=== PATIENT | female | born 1950 | race Caucasian/White ===

== ENCOUNTER 2018-09-08 16:55 | Inpatient (IN) ==
[2018-09-08] MEDS ORDERED: Ipratropium/Albuterol Neb 3 ML IH ONE (17:21)
[2018-09-08] MEDS ORDERED: Ondansetron 4 MG/2 ML VIAL IVP ONE (17:27)
[2018-09-08] MEDS ORDERED: 0.9 % Sodium Chloride 1,000 ML IVC ONE (17:27)
[2018-09-08 17:34] LABS: Basophils % 0.4 %; Hematocrit 32.9 % (35.3-44.9); Red Cell Distribution Width 16.8 % (11.5-14.5)
[2018-09-08 17:36] LABS: Hemoglobin 10.1 g/dL (11.5-15.4); Immature Granulocytes % 0.6 % (0-4); Immature Platelets 8.3 % (1.1-6.1); Lymphocytes # 0.6 K/mcL (0.6-4.6); Lymphocytes % 10.4 %; Mean Corpuscular HGB Conc 30.7 g/dL (31.6-35.5); Mean Corpuscular Hemoglobin 21.1 pg (28.0-33.3); Mean Corpuscular Volume 68.8 fL (83.0-100.0); Monocytes # 0.6 K/mcL (0.0-1.3); Monocytes % 10.7 %; Neutrophils # 4.1 K/mcL (1.6-8.9); Platelet Count 158 K/mcL (140-400); Red Blood Count 4.78 M/mcL (3.82-4.97); Segmented Neutrophils % 77.9 %; White Blood Count 5.3 K/mcL (4.3-11.1)
[2018-09-08] MEDS ORDERED: cefTRIAXone 1,000 MG in 0.9 % Sodium Chloride Mini Bag 100 ML IVPB ONE (17:46)
[2018-09-08] MEDS ORDERED: Azithromycin 250 MG TABLET PO ONE (17:46)
[2018-09-08 17:54] LABS: Large Platelets Present (Not Present); Microcytosis Present (Not Present); Platelet Estimate Normal (Normal)
[2018-09-08 18:01] LABS: Alanine Aminotransferase 9 Units/L (7-52); Albumin/Globulin Ratio 1.4 (1.1-2.2); Alkaline Phosphatase 70 Units/L (34-104); Aspartate Amino Transferase 18 Units/L (13-39); BUN/Creatinine Ratio 20 (6-26); Bilirubin,Direct 0.1 mg/dL (0.0-0.2); Bilirubin,Indirect 0.3 mg/dL (0.0-1.2); Bilirubin,Total 0.4 mg/dL (0.3-1.0); Blood Urea Nitrogen 13 mg/dL (8-23); Calcium 9.3 mg/dL (8.6-10.3); Carbon Dioxide 27 mEq/L (23-29); Chloride 96 mEq/L (98-107); Globulin 2.8 g/dL (2.4-3.5); Glucose 143 mg/dL (70-105); Lipase 6 Units/L (11-82); Osmolality,Calculated 279 (280-300); Potassium 3.1 mEq/L (3.5-5.1); Sodium 133 mEq/L (136-145); Total Protein 6.8 g/dL (6.4-8.9); eGFR For African Americans > 60 (> 60); eGFR For Non-African Americans > 60 (> 60)
--- NOTE | 2018-09-08 21:03 | Emergency Department Note ---
Disposition Clinical Impression: CAP (community acquired pneumonia) Qualifiers: Laterality: right Lung location: lower lobe of lung Qualified Code(s): J18.1 - Lobar pneumonia, unspecified organism Disposition: Admitted As Inpatient Condition: Good Referrals: Sayda Villagran MD [Primary Care Provider] - Time of Disposition: 20:05 General Adult HPI - General Chief complaint: ED Nausea/Vomiting/Diarrhea Stated complaint: nausea, vomitting Time Seen by Provider: 09/08/18 17:00 Source: patient, EMS Mode of arrival: ambulatory Nursing Notes Reviewed: Yes Vital Signs Reviewed: Yes - History of Present Illness HPI Narrative: 68-year-old female presents for chief complaint of fever, body aches, nausea and vomiting, cough, malaise and fatigue over the last couple days. Symptoms have been constant and progressive. Her emesis is nonbloody and nonbilious. She denies any syncope, confusion, neck stiffness, chest pain, abdominal pain, urinary symptoms, rashes or edema. No remitting or exacerbating factors. has been sick with cough and cold symptoms. Pain Scale: 8 - Related Data Home Medications Medication Instructions Recorded Confirmed Aspirin [Ecotrin] 325 mg PO DAILY 09/08/18 09/08/18 Budesonide/Formoterol 160/4.5 2 puff IH BIDR 09/08/18 09/08/18 [Symbicort 160/4.5] Ergocalciferol (VITAMIN D2) 50,000 unit PO TUSA 09/08/18 09/08/18 [Vitamin D2] [place] Carbonate ER [Eskalith] 450 mg PO 09/08/18 09/08/18 Omeprazole [PriLOSEC] 40 mg PO DAILY 09/08/18 09/08/18 Paroxetine [Paxil] 20 mg PO DAILY 09/08/18 09/08/18 Simvastatin [Zocor] 10 mg PO 09/08/18 09/08/18 Tiotropium [place] [Spiriva 2 puff IH DAILY 09/08/18 09/08/18 Respimat] Verapamil [Isoptin] 40 mg PO TID 09/08/18 09/08/18 clonazePAM [Clonazepam] 0.25 mg PO QA 09/08/18 09/08/18 clonazePAM [Clonazepam] 0.5 mg PO 09/08/18 09/08/18 hydroCHLOROthiazide 25 mg PO DAILY 09/08/18 09/08/18 [Hydrochlorothiazide] traZODone [TraZODone] 25 mg PO HS 09/08/18 09/08/18 Allergies Allergy/AdvReac Type Severity Reaction Status Date / Time acetaminophen Allergy Nausea Verified 08/14/17 11:05 [From Darvocet-N] Erythromycin Base Allergy Nausea Verified 08/14/17 11:05 propoxyphene Allergy Nausea Verified 08/14/17 11:05 [From Darvocet-N] Constitutional: Reports: fever, chills Eyes: Denies: eye pain, eye discharge Cardiovascular: Denies: chest pain, palpitations Respiratory: Reports: cough. Denies: dyspnea Gastrointestinal: Reports: nausea, vomiting. Denies: abdominal pain Genitourinary: Denies: urgency, dysuria Musculoskeletal: Reports: arthralgia, myalgia Integumentary: Denies: rash, abrasion Neurological: Reports: weakness. Denies: headache Psychiatric: Denies: anxiety, depression Endocrine: Reports: fatigue. Denies: heat or cold intolerance Hematological/Lymphatic: Denies: easy bleeding, easy bruising Allergic/Immunologic: Denies: facial swelling, urticaria Past Medical History - Past Medical History Attestation: Yes The following information was validated with the patient. Source: patient Medical history: Reports: arthritis, COPD, CVA, hyperlipidemia, hypertension Surgical history: Reports: appendectomy, , orthopedic, other Psychiatric history: Reports: anxiety, bipolar, depression, panic disorder - Social History Smoking Status: Current every day smoker Alcohol use: Reports: none Physical Exam - General General appearance: alert, in no apparent distress - Head Head exam: atraumatic, normocephalic - Eye Eye exam: Present: normal appearance, PERRL - ENT ENT exam: normal exam, normal oropharynx - Neck Neck exam: Present: normal inspection, full ROM - Chest Chest inspection: Present: normal inspection, symmetric chest wall rise - Respiratory Respiratory exam: Present: other (Scattered wheezes and rhonchi.). Absent: respiratory distress - Cardiovascular Cardiovascular exam: Present: regular rate, normal rhythm - Abdominal Exam Abdominal exam: Present: soft, Non-Tender - Extremities Exam Extremities exam: Present: normal inspection, full ROM - Back Exam Back exam: Present: normal inspection, full ROM - Neurological Exam Neurological exam: Present: alert, oriented X3 - Psychiatric Psychiatric exam: Present: normal affect, normal mood - Skin Skin exam: Present: warm, dry, intact Course Course Narrative: I gave patient a breathing treatment here with some improvement in her breathing. She was initially saturating at about 88-90% on room air and was placed on nasal cannula oxygen at 2 L with improvement of symptoms. Chest x-ray shows right lower lobe pneumonia. Patient is febrile at 100.6 on arrival, but not hypotensive or tachycardic. Patient was given Rocephin and azithromycin here. She is also given Tylenol and is feeling better on reassessment. Patient was hospitalized for further evaluation and management. EKG interpreted by me shows normal sinus rhythm at 71 with a little axis and intervals. No ST elevation or depression. Nonspecific mild T-wave changes diffusely with associated motion artifact. Abnormal EKG. Vital Signs Temperature 100.6 F H 09/08/18 16:59 Pulse Rate 72 09/08/18 16:59 Respiratory Rate 18 09/08/18 16:59 Blood Pressure 127/75 09/08/18 16:59 O2 Sat by Pulse Oximetry 93 09/08/18 16:59 Temperature 100.6 F H 09/08/18 17:04 Pulse Rate 77 09/08/18 19:00 Respiratory Rate 18 09/08/18 19:00 Blood Pressure 130/75 09/08/18 19:00 O2 Sat by Pulse Oximetry 96 09/08/18 19:00 Oxygen Delivery Oxygen Delivery Nasal Cannula Medical Decision Making - Lab Data Result diagrams: 09/08/18 17:08 09/08/18 17:08 Lab Results 09/08/18 09/08/18 09/08/18 Range/Units 17:08 17:08 17:08 WBC 5.3 (4.3-11.1) K/mcL RBC 4.78 (3.82-4.97) M/mcL Hgb 10.1 L (11.5-15.4) g/dL Hct 32.9 L (35.3-44.9) % MCV 68.8 L (83.0-100.0) fL MCH 21.1 L (28.0-33.3) pg MCHC 30.7 L (31.6-35.5) g/dL RDW 16.8 H (11.5-14.5) % Plt Count 158 (140-400) K/mcL MPV 12.0 (9.4-12.4) fL Immature Gran % 0.6 (0-4) % Seg Neutrophils % 77.9 % Lymphocytes % 10.4 % Monocytes % 10.7 % Eosinophils % 0.0 % Basophils % 0.4 % Neutrophils # 4.1 (1.6-8.9) K/mcL Lymphocytes # 0.6 (0.6-4.6) K/mcL Monocytes # 0.6 (0.0-1.3) K/mcL Eosinophils # 0.0 (0.0-0.6) K/mcL Basophils # 0.0 (0.0-0.2) K/mcL Platelet Estimate Normal (Normal) Large Platelets Present A (Not Present) Immature Plt Fraction 8.3 H (1.1-6.1) % Microcytosis Present A (Not Present) Sodium 133 L (136-145) mEq/L Potassium 3.1 L (3.5-5.1) mEq/L Chloride 96 L (98-107) mEq/L Carbon Dioxide 27 (23-29) mEq/L BUN 13 (8-23) mg/dL Creatinine 0.65 (0.60-1.20) mg/dL Est GFR ( Amer) > 60 (> 60) Est GFR (Non-Af Amer) > 60 (> 60) BUN/Creatinine Ratio 20 (6-26) Glucose 143 H (70-105) mg/dL Calculated Osmolality 279 L (280-300) Lactic Acid 0.8 (0.5-2.2) mmol/L Calcium 9.3 (8.6-10.3) mg/dL Total Bilirubin 0.4 (0.3-1.0) mg/dL Direct Bilirubin 0.1 (0.0-0.2) mg/dL Indirect Bilirubin 0.3 (0.0-1.2) mg/dL AST 18 (13-39) Units/L ALT 9 (7-52) Units/L Alkaline Phosphatase 70 (34-104) Units/L Serum Total Protein 6.8 (6.4-8.9) g/dL Albumin 4.0 (3.5-5.7) g/dL Globulin 2.8 (2.4-3.5) g/dL Albumin/Globulin Ratio 1.4 (1.1-2.2) Lipase 6 L (11-82) Units/L
[2018-09-08 21:21] LABS: Bilirubin,Urine Negative (Negative); Blood,Urine Negative (Negative); Clarity,Urine Clear (Clear); Color,Urine Yellow (Yellow); Glucose,Urine (UA) Normal (Normal); Ketones,Urine Negative (Negative); Leukocyte Esterase,Urine Negative (Negative); Nitrite,Urine Negative (Negative); PH,Urine 6.5 pH Units (5.0-8.0); Protein,Urine Negative (Neg-Trace); Specific Gravity,Urine < 1.005 (1.010-1.025); Urobilinogen,Urine Normal (Normal)
[2018-09-08] MEDS ORDERED: Albuterol 2.5 MG/3 ML NEBULIZER IH PRN (22:03)
[2018-09-08] MEDS ORDERED: Naloxone 0.4 MG/ML INJ IVP PRN (22:03)
[2018-09-08] MEDS ORDERED: Ondansetron 4 MG/2 ML VIAL IVP PRN (22:03)
[2018-09-08] MEDS ORDERED: Azithromycin 500 MG in D5% in Water 250 ML IVPB SCH (23:00)
--- NOTE | 2018-09-08 23:47 | Internal Med History&Physical ---
Date of Encounter: 09/08/18 Time of Encounter: 20:46 Internal Medicine - H&P: HPI Chief complaint: fever, cough, body aches Admitted From: Emergency Dept Plans for Post Hospital Care: Home History of present illness: Ms. Grullon is a 68 year old female who presents to the ER today with about a 5- 6 day history of fever, cough, body aches, nausea, vomiting, and fatigue. Her family brought her to the ER given her persistent and worsening symptoms. Workup in ER revealed patient to have right lower lobe pneumonia and a mild oxygen requirement. She was therefore admitted to hospitalist service. Upon my assessment of the patient in the ER, patient appears ill but nontoxic. She appears dehydrated. She confirms the above history. She has had symptoms for the last 5-6 days which have progressively worsened. Sh admits to subjective fevers, chills, and occasional night sweats. She has had cough productive of thick purulent sputum. She denies any hemoptysis. She is a long- time smoker and suffers from COPD. She denies any chest pain or severe pleurisy. Appetite and fluid intake have been markedly decreased over the last 2-3 days. Past Med Surg Social Fam HX - Past Medical History Attestation: Yes The following information was validated with the patient. Source: patient, old records reviewed Medical history: arthritis, COPD, CVA, hyperlipidemia, hypertension Psychiatric history: anxiety, bipolar, depression, panic disorder - Past Surgical History Surgical History: appendectomy, , orthopedic, other Additional surgical history: cyst on ovary. right foot bunion - Social History Smoking Status: Current every day smoker Alcohol use: none Current living situation: Home, With Family Activity Level: Independent ambulation Recent Out of Country Travel Within the Last 8 Weeks: No - Family History Mother History Unknown: Yes Father History Unknown: Yes Internal Medicine - H&P: Meds Aspirin [Ecotrin] 325 mg PO DAILY 09/08/18 [History] Budesonide/Formoterol 160/4.5 [Symbicort 160/4.5] 2 puff IH BIDR 09/08/18 [History] Ergocalciferol (VITAMIN D2) [Vitamin D2] 50,000 unit PO TUSA 09/08/18 [History] [place] Carbonate ER [Eskalith] 450 mg PO HS 09/08/18 [History] Omeprazole [PriLOSEC] 40 mg PO DAILY 09/08/18 [History] Paroxetine [Paxil] 20 mg PO DAILY 09/08/18 [History] Simvastatin [Zocor] 10 mg PO HS 09/08/18 [History] Tiotropium [place] [Spiriva Respimat] 2 puff IH DAILY 09/08/18 [History] Verapamil [Isoptin] 40 mg PO TID 09/08/18 [History] clonazePAM [Clonazepam] 0.25 mg PO QAM 09/08/18 [History] clonazePAM [Clonazepam] 0.5 mg PO HS 09/08/18 [History] hydroCHLOROthiazide [Hydrochlorothiazide] 25 mg PO DAILY 09/08/18 [History] traZODone [TraZODone] 25 mg PO HS 09/08/18 [History] Allergy/AdvReac Type Severity Reaction Status Date / Time acetaminophen Allergy Nausea Verified 08/14/17 11:05 [From Darvocet-N] Erythromycin Base Allergy Nausea Verified 08/14/17 11:05 propoxyphene Allergy Nausea Verified 08/14/17 11:05 [From Darvocet-N] - Constitutional Constitutional: chills, fatigue, fever(s), weakness - EENT Eyes: no blurry vision, no change in vision Ears: no ear pain, no tinnitus Nose, mouth and throat: nasal congestion, no sinus pressure, no sore throat - Cardiovascular Cardiovascular ROS IM: dyspnea, dyspnea on exertion, no chest pain, no lightheadedness, no orthopnea, no paroxysmal nocturnal dyspnea, no syncope - Respiratory Respiratory: cough, dyspnea, dyspnea on exertion, wheezing, chest congestion, change in phlegm color, no hemoptysis, no pain on inspiration, no pain with cough - Gastrointestinal Gastrointestinal: nausea, no abdominal pain, no diarrhea, no hematemesis, no hematochezia, no melena, no vomiting - Genitourinary Genitourinary: no dysuria, no flank pain, no hematuria - Musculoskeletal Musculoskeletal ROS IM: no arthralgias, no back pain, no limited range of motion, no muscle weakness, no numbness - Integumentary Integumentary IM: no rash, no jaundice - Neurological Neurological ROS: no disequilibrium, no dizziness, no focal weakness, no frequent falls, no headache(s) - Psychiatric Psychiatric: no anxiety, no depression - Endocrine Endocrine IM: no polydipsia, no polyphagia, no polyuria - Hematologic/Lymphatic Hematologic/Lymphatic: no easy bruising, no lymphadenopathy - Allergic/Immunologic Allergic/Immunologic: wheezing, no GI upset with certain foods - Constitutional Vitals: Temp Pulse Resp BP Pulse Ox 99.5 F 69 17 109/73 95 09/08/18 21:56 09/08/18 21:56 09/08/18 21:56 09/08/18 21:56 09/08/18 21:56 General appearance: Present: cooperative, mild distress, A&O X 3, pleasant, answers questions appropriately Exam: appears mild to moderately dehydrated - Head Head exam: Present: atraumatic, normal inspection - Eye Eye exam: Present: EOMI, PERRL. Absent: scleral icterus Pupils: Present: normal accommodation - ENT ENT exam: Present: mucous membranes dry, normal exam, normal oropharynx - Neck Neck exam general surgery: Present: full ROM, supple, trachea midline. Absent: lymphadenopathy, tenderness, nuchal rigidity, thyromegaly - Respiratory Respiratory exam: Present: prolonged expiratory phase, rales (crackles right base). Absent: accessory muscle use, chest wall tenderness, respiratory distr ess, rhonchi, wheezes, tachypnea - Cardiovascular Cardiovascular exam: Present: distant heart sounds, +S1, +S2. Absent: diastolic murmur, systolic murmur - GI/Abdominal GI/Abdominal exam: Present: normal bowel sounds, soft. Absent: guarding, hepatomegaly, mass, rebound, splenomegaly, tenderness - Extremities Exam Extremities exam: Present: full ROM, normal capillary refill, warm, radial pulses palpable and symmetrical. Absent: calf tenderness, pedal edema, tenderness - Back Exam Back exam: Present: normal inspection. Absent: CVA tenderness (L), CVA tenderness (R) - Neurological Exam Neurological exam: Present: alert, CN II-XII intact, normal gait, no focal deficits - Psychiatric Psychiatric exam: Present: normal affect, normal mood - Skin Skin exam: Present: dry, intact, warm Internal Med - H&P Results - Labs CBC & Chem 7: 09/08/18 17:08 09/08/18 17:08 Labs: Short CBC 09/08/18 Range/Units 17:08 WBC 5.3 (4.3-11.1) K/mcL Hgb 10.1 L (11.5-15.4) g/dL Hct 32.9 L (35.3-44.9) % Plt Count 158 (140-400) K/mcL Neutrophils # 4.1 (1.6-8.9) K/mcL BMP 09/08/18 17:08 Sodium 133 L Potassium 3.1 L Chloride 96 L Carbon Dioxide 27 BUN 13 Creatinine 0.65 Glucose 143 H Calcium 9.3 Liver Function 09/08/18 Range/Units 17:08 Total Bilirubin 0.4 (0.3-1.0) mg/dL Direct Bilirubin 0.1 (0.0-0.2) mg/dL AST 18 (13-39) Units/L ALT 9 (7-52) Units/L Alkaline Phosphatase 70 (34-104) Units/L Albumin 4.0 (3.5-5.7) g/dL Urine 09/08/18 Range/Units 21:01 Urine Color Yellow (Yellow) Urine Clarity Clear (Clear) Urine pH 6.5 (5.0-8.0) pH Units Ur Specific [place] < 1.005 L (1.010-1.025) Urine Protein Negative (Neg-Trace) mg/dL Urine Glucose (UA) Normal (Normal) mg/dL - Impressions ITS Impressions Chest X-Ray 09/08/18 17:11 IMPRESSION: Acute right lower lobe pneumonia. Radiographic follow-up recommended to assure resolution. D/ / 09/08/2018 17:31:40 Erick Bosch MD / [place] Interpreting Provider: Erick Bosch MD - Assessment and Plan (1) RLL pneumonia Current Visit: Yes Status: Acute Assessment and plan: 1. Will continue IV antibiotics with Rocephin and Zithromax. 2. Will order oxygen and aerosols as needed for support. 3. Monitor clinically and adjust antibiotics/treatments to clinical response to care. Qualifiers: Pneumonia type: due to unspecified organism Qualified Code(s): J18.1 - Lobar pneumonia, unspecified organism (2) COPD (chronic obstructive pulmonary disease) Current Visit: Yes Status: Chronic Assessment and plan: 1. Will order scheduled and PRN aerosols. 2. Will order some systemic steroids given the degree of SOB and wheezing. 3. Patient noted improvement in dyspnea after aerosol. Qualifiers: COPD type: emphysema Emphysema type: panlobular Qualified Code(s): J43.1 - Panlobular emphysema (3) Hypertension Current Visit: Yes Status: Chronic Assessment and plan: 1. Continue home meds as appropriate. 2. Monitor BP and adjust meds as necessary. Qualifiers: Hypertension type: essential hypertension Qualified Code(s): I10 - Essential (primary) hypertension (4) DVT prophylaxis Current Visit: Yes Status: Acute Assessment and plan: 1. Heparin SQ.
[2018-09-09] MEDS: methylPREDNISolone 125 MG/2 ML VIAL IVP SCH ×2 (00:02→05:29)
[2018-09-09] MEDS: Lithium Carbonate ER 450 MG TABLET.ER PO SCH ×2 (00:03→20:43)
[2018-09-09] MEDS: clonazePAM 0.5 MG TABLET PO SCH ×3 (00:04→20:43)
[2018-09-09] MEDS: 0.9 % Sodium Chloride w KCl 20 MEQ/1,000 ML MLS IVC SCH ×2 (00:04→09:10)
[2018-09-09] MEDS: Ipratropium/Albuterol Neb 3 ML IH SCH ×6 (00:32→19:54)
[2018-09-09 02:47] LABS: Basophils % 0.2 %; Immature Granulocytes % 0.2 % (0-4); Mean Corpuscular Volume 69.4 fL (83.0-100.0)
[2018-09-09 02:49] LABS: Hemoglobin 9.1 g/dL (11.5-15.4); Immature Platelets 8.7 % (1.1-6.1); Lymphocytes # 0.4 K/mcL (0.6-4.6); Lymphocytes % 10.3 %; Mean Corpuscular HGB Conc 30.3 g/dL (31.6-35.5); Mean Corpuscular Hemoglobin 21.1 pg (28.0-33.3); Monocytes # 0.3 K/mcL (0.0-1.3); Monocytes % 5.8 %; Neutrophils # 3.6 K/mcL (1.6-8.9); Platelet Count 131 K/mcL (140-400); Red Blood Count 4.32 M/mcL (3.82-4.97); Red Cell Distribution Width 16.9 % (11.5-14.5); Segmented Neutrophils % 83.5 %; White Blood Count 4.3 K/mcL (4.3-11.1)
[2018-09-09 02:56] LABS: INR 1.2; Prothrombin Time 13.7 Seconds (9.4-12.1)
[2018-09-09 02:59] LABS: Activated Partial Thrombo Time 34.1 Seconds (26.0-36.0)
[2018-09-09 03:27] LABS: Microcytosis Present (Not Present); Platelet Estimate Normal (Normal); Poikilocytosis 1+ (Not Present)
[2018-09-09 03:28] LABS: Large Platelets Present (Not Present)
[2018-09-09] MEDS: Ibuprofen 400 MG TABLET PO PRN (03:47)
[2018-09-09] MEDS: *HR* Heparin 5,000 UNIT/ML VIAL SQ SCH ×2 (05:29→17:01)
[2018-09-09] MEDS: Budesonide/Formoterol 160/4.5 1 PUFF INH IH SCH ×2 (07:37→19:54)
[2018-09-09] MEDS: Aspirin Enteric Coated 325 MG Tablet PO SCH (09:11)
[2018-09-09] MEDS: Azithromycin 500 MG in D5% in Water 250 ML IVPB SCH (09:13)
[2018-09-09] MEDS: cefTRIAXone 1,000 MG in Water for inj. (sterile) 20 ML 10 ML IVP SCH (09:14)
--- NOTE | 2018-09-09 09:29 | Electrocardiograph Report ---
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
--- NOTE | 2018-09-09 13:58 | Internal Med Progress Note ---
Hospitalist Progress Note - Encounter Date of Encounter: 09/09/18 Time of Encounter: 13:55 - Subjective Interval History: Patient seen and examined at bedside. Patient states that she feels better today. She feels like her cough and shortness of breath is improved. She denies any fevers or chills. - Exam Vitals: Temp Pulse Resp BP Pulse Ox 97.9 F 57 17 104/67 91 09/09/18 10:48 09/09/18 10:48 09/09/18 11:23 09/09/18 10:48 09/09/18 11:23 Exam: Gen.: Oriented 3, no acute distress Lungs: Diminished bilaterally, no rales, rhonchi, wheezes Heart: Regular rate and rhythm, no murmurs, rubs, gallops - Assessment and Plan (1) Acute respiratory failure with hypoxia Current Visit: Yes Status: Acute Assessment and Plan: Secondary to pneumonia and COPD exacerbation. Patient continues to require 2-3 L of oxygen to maintain a saturation greater than 88%. Is not on home oxygen at home. Continue to wean down oxygen to maintain saturation greater than 88%. (2) RLL pneumonia Current Visit: Yes Status: Acute Assessment and Plan: Overall patient appears clinically improved. Continue treatment for community acquired pneumonia with Rocephin and Zithromax. (3) COPD (chronic obstructive pulmonary disease) Current Visit: Yes Status: Chronic Assessment and Plan: History of COPD with increasing shortness of breath and sputum production. Secondary pneumonia as above. Decrease IV steroids to Solu-Medrol 40 mg every 12, likely transition to by mouth tomorrow. Continue scheduled bronchodilators (4) Hypertension Current Visit: Yes Status: Chronic Assessment and Plan: Blood pressure under good control. Continue home medications. (5) DVT prophylaxis Current Visit: Yes Status: Acute Assessment and Plan: Heparin 5000 units subcutaneous every 12 hours. - Time Spent with Patient Total time spent is greater than 50% in coordination of care (as documented) at patient's floor/unit and/or counseling patient: Internal Medicine: Result - Labs CBC & Chem 7: 09/09/18 01:49 09/08/18 17:08 Labs: Short CBC 09/08/18 09/09/18 Range/Units 17:08 01:49 WBC 5.3 4.3 (4.3-11.1) K/mcL Hgb 10.1 L 9.1 L (11.5-15.4) g/dL Hct 32.9 L 30.0 L (35.3-44.9) % Plt Count 158 131 L (140-400) K/mcL Neutrophils # 4.1 3.6 (1.6-8.9) K/mcL BMP 09/08/18 17:08 Sodium 133 L Potassium 3.1 L Chloride 96 L Carbon Dioxide 27 BUN 13 Creatinine 0.65 Glucose 143 H Calcium 9.3 Cardiac Enzymes 09/09/18 Range/Units 01:49 Troponin I < 0.03 (< 0.04) ng/mL Liver Function 09/08/18 Range/Units 17:08 Total Bilirubin 0.4 (0.3-1.0) mg/dL Direct Bilirubin 0.1 (0.0-0.2) mg/dL AST 18 (13-39) Units/L ALT 9 (7-52) Units/L Alkaline Phosphatase 70 (34-104) Units/L Albumin 4.0 (3.5-5.7) g/dL Urine 09/08/18 Range/Units 21:01 Urine Color Yellow (Yellow) Urine Clarity Clear (Clear) Urine pH 6.5 (5.0-8.0) pH Units Ur Specific [place] < 1.005 L (1.010-1.025) Urine Protein Negative (Neg-Trace) mg/dL Urine Glucose (UA) Normal (Normal) mg/dL - ABG Interpretation ABG results: PT/INR, D-dimer PT 13.7 Seconds (9.4-12.1) H 09/09/18 01:49 - Impressions Impressions Chest X-Ray 09/08/18 17:11 IMPRESSION: Acute right lower lobe pneumonia. Radiographic follow-up recommended to assure resolution. D/ / 09/08/2018 17:31:40 Erick Bosch MD / [place] Interpreting Provider: Erick Bosch MD Consult Discharge Plan - Plan Referrals: Sayda Villagran MD [Primary Care Provider] - (2) RLL pneumonia Qualifiers: Pneumonia type: due to unspecified organism Qualified Code(s): J18.1 - Lobar pneumonia, unspecified organism (3) COPD (chronic obstructive pulmonary disease) Qualifiers: COPD type: COPD with acute exacerbation Qualified Code(s): J44.1 - Chronic obstructive pulmonary disease with (acute) exacerbation (4) Hypertension Qualifiers: Hypertension type: essential hypertension Qualified Code(s): I10 - Essential (primary) hypertension
[2018-09-09] MEDS: MethylPREDNISolone 40 MG/ML VIAL IVP SCH (17:01)
[2018-09-09] MEDS ORDERED: MethylPREDNISolone 40 MG/ML VIAL IVP SCH (18:00)
[2018-09-09] MEDS: traZODone 50 MG TABLET PO SCH (20:42)
[2018-09-10] MEDS: Ipratropium/Albuterol Neb 3 ML IH SCH ×6 (00:02→19:27)
[2018-09-10 05:53] LABS: Hemoglobin 9.2 g/dL (11.5-15.4); Mean Corpuscular Volume 69.1 fL (83.0-100.0)
[2018-09-10 05:55] LABS: Hematocrit 29.9 % (35.3-44.9); Lymphocytes # 0.6 K/mcL (0.6-4.6); Mean Corpuscular HGB Conc 30.8 g/dL (31.6-35.5); Mean Corpuscular Hemoglobin 21.2 pg (28.0-33.3); Monocytes # 0.6 K/mcL (0.0-1.3); Nucleated Red Blood Cells 0.4 /100 WBC (0); Platelet Count 100 K/mcL (140-400); Red Blood Count 4.33 M/mcL (3.82-4.97); Red Cell Distribution Width 17.2 % (11.5-14.5)
[2018-09-10] MEDS: Ibuprofen 400 MG TABLET PO PRN ×2 (05:55→11:59)
[2018-09-10] MEDS: *HR* Heparin 5,000 UNIT/ML VIAL SQ SCH ×2 (05:57→15:51)
[2018-09-10] MEDS: MethylPREDNISolone 40 MG/ML VIAL IVP SCH (05:57)
[2018-09-10] MEDS: Budesonide/Formoterol 160/4.5 1 PUFF INH IH SCH ×2 (07:32→19:27)
[2018-09-10 08:35] LABS: Microcytosis Present (Not Present); Platelet Estimate Slight Decrease (Normal)
[2018-09-10 08:36] LABS: Anisocytosis 1+ (Not Present); Poikilocytosis 1+ (Not Present)
[2018-09-10 08:38] LABS: Neutrophils # 6.2 K/mcL (1.6-8.9)
[2018-09-10 09:52] LABS: Alanine Aminotransferase 9 Units/L (7-52); Albumin 3.5 g/dL (3.5-5.7); Albumin/Globulin Ratio 1.3 (1.1-2.2); Alkaline Phosphatase 55 Units/L (34-104); Aspartate Amino Transferase 16 Units/L (13-39); BUN/Creatinine Ratio 22 (6-26); Bilirubin,Total 0.2 mg/dL (0.3-1.0); Blood Urea Nitrogen 14 mg/dL (8-23); Carbon Dioxide 22 mEq/L (23-29); Chloride 106 mEq/L (98-107); Globulin 2.6 g/dL (2.4-3.5); Glucose 199 mg/dL (70-105); Magnesium 1.8 mg/dL (1.6-2.6); Osmolality,Calculated 292 (280-300); Sodium 138 mEq/L (136-145); Total Protein 6.1 g/dL (6.4-8.9); eGFR For African Americans > 60 (> 60); eGFR For Non-African Americans > 60 (> 60)
[2018-09-10 11:03] LABS: Adenovirus DETECTED (Not Detect); Bordetella Pertussis Not Detected (Not Detect); Chlamydophila pneumoniae Not Detected (Not Detect); Coronavirus 229E Not Detected (Not Detect); Coronavirus HKU1 Not Detected (Not Detect); Coronavirus NL63 Not Detected (Not Detect); Coronavirus OC43 Not Detected (Not Detect); Human Metapneumovirus Not Detected (Not Detect); Human Rhinovirus/Enterovirus Not Detected (Not Detect); Influenza A Subtype 2009 H1 Not Detected (Not Detect); Influenza A Untypeable Not Detected (Not Detect); Influenza B Not Detected (Not Detect); Mycoplasma pneumoniae Not Detected (Not Detect); Parainfluenza Virus 1 Not Detected (Not Detect); Parainfluenza Virus 2 Not Detected (Not Detect); Parainfluenza Virus 3 Not Detected (Not Detect); Parainfluenza Virus 4 Not Detected (Not Detect); Respiratory Syncytial Virus Not Detected (Not Detect)
[2018-09-10] MEDS: Aspirin Enteric Coated 325 MG Tablet PO SCH (11:20)
[2018-09-10] MEDS: predniSONE 20 MG TABLET PO SCH (11:21)
[2018-09-10] MEDS: clonazePAM 0.5 MG TABLET PO SCH (11:22)
[2018-09-10] MEDS: cefTRIAXone 1,000 MG in Water for inj. (sterile) 20 ML 10 ML IVP SCH (11:22)
[2018-09-10] MEDS: Azithromycin 500 MG in D5% in Water 250 ML IVPB SCH (11:24)
--- NOTE | 2018-09-10 12:04 | Internal Med Progress Note ---
Hospitalist Progress Note - Encounter Date of Encounter: 09/10/18 Time of Encounter: 12:02 - Subjective Interval History: Patient seen and examined at bedside. Patient states that she feels about the same today. She does report intermittent fevers. She reports continued shortness of breath. She states she feels generally weak. Denies chest pain, abdominal pain. - Exam Vitals: Temp Pulse Resp BP Pulse Ox 99.7 F H 78 18 102/63 84 09/10/18 08:00 09/10/18 08:00 09/10/18 11:36 09/10/18 08:00 09/10/18 11:36 Exam: Gen.: Alert and oriented 3, no acute distress Lungs: Diminished bilaterally, no rales, rhonchi, wheezes Heart: Regular rate and rhythm, no murmurs, rubs, gallops Abdomen: Soft, nontender, nondistended. Normoactive bowel sounds Extremities: warm to touch, no peripheral edema present. no cyanosis present. - Assessment and Plan (1) Acute respiratory failure with hypoxia Current Visit: Yes Status: Acute Assessment and Plan: Patient continues to require increasing oxygen. She is now on 4 L. She does not use any oxygen. Secondary to pneumonia. Continue supplemental oxygen, patient may need BiPAP. Continue to closely monitor patient's respiratory status. (2) RLL pneumonia Current Visit: Yes Status: Acute Assessment and Plan: Patient's respiratory status appears to be worsening today. She is increasing oxygen requirements. Respiratory infection panel positive for adenovirus. Obtain CT scan of the chest today which I personally reviewed that shows dense consolidation in the right middle lobe. Because of the some concern for superimposed bacterial infection. Continue antibiotics with ceftriaxone and Rocephin. Strep and legionella urinary antigen pending. (3) COPD (chronic obstructive pulmonary disease) Current Visit: Yes Status: Chronic Assessment and Plan: Patient is having increasing oxygen requirements however her wheezing has improved. Continue scheduled bronchodilators. Transitioned to prednisone orally at 40 mg daily. (4) Hypertension Current Visit: Yes Status: Chronic Assessment and Plan: Blood pressure under good control. Continue home medications. (5) DVT prophylaxis Current Visit: Yes Status: Acute Assessment and Plan: Heparin 5000 units subcutaneous every 12 hours. - Time Spent with Patient Total time spent is greater than 50% in coordination of care (as documented) at patient's floor/unit and/or counseling patient: Internal Medicine: Result - Labs CBC & Chem 7: 09/10/18 05:39 09/09/18 14:05 Labs: Short CBC 09/10/18 Range/Units 05:39 WBC 7.0 D (4.3-11.1) K/mcL Hgb 9.2 L (11.5-15.4) g/dL Hct 29.9 L (35.3-44.9) % Plt Count 100 L (140-400) K/mcL Neutrophils # 6.2 (1.6-8.9) K/mcL BMP 09/09/18 14:05 Sodium 138 Potassium 4.0 D Chloride 106 Carbon Dioxide 22 L BUN 14 Creatinine 0.64 Glucose 199 H Calcium 9.0 Cardiac Enzymes 09/09/18 09/09/18 Range/Units 14:05 14:05 Troponin I < 0.03 < 0.03 (< 0.04) ng/mL Liver Function 09/09/18 Range/Units 14:05 Total Bilirubin 0.2 L (0.3-1.0) mg/dL AST 16 (13-39) Units/L ALT 9 (7-52) Units/L Alkaline Phosphatase 55 (34-104) Units/L Albumin 3.5 (3.5-5.7) g/dL - ABG Interpretation ABG results: PT/INR, D-dimer PT 13.7 Seconds (9.4-12.1) H 09/09/18 01:49 - Impressions Impressions Chest CT 09/10/18 08:17 IMPRESSION: 1. Right middle lobe pneumonia with a trace reactive right pleural effusion. CT follow-up to document complete resolution is recommended. 2. Small right upper lobe pulmonary nodules, stable from May 2018 but increased from 2013. Continued attention to these nodules on subsequent chest CTs is recommended which can be obtained in approximately 3-6 months. 3. Moderate emphysema. D/ / 09/10/2018 09:18:51 David Moulton MD / he Interpreting Provider: David Moulton MD Consult Discharge Plan - Plan Referrals: Sayda Villagran MD [Primary Care Provider] - (2) RLL pneumonia Qualifiers: Pneumonia type: due to unspecified organism Qualified Code(s): J18.1 - Lobar pneumonia, unspecified organism (3) COPD (chronic obstructive pulmonary disease) Qualifiers: COPD type: COPD with acute exacerbation Qualified Code(s): J44.1 - Chronic obstructive pulmonary disease with (acute) exacerbation (4) Hypertension Qualifiers: Hypertension type: essential hypertension Qualified Code(s): I10 - Essential (primary) hypertension
[2018-09-10 12:34] LABS: ABG Base Excess 0 mEq/L (-2 to 3); ABG HCO3 25 mEq/L (21-27); ABG Oxygen Saturation 81 % (95-98); ABG PCO2 39 mmHg (35-45); ABG PH 7.41 pH Units (7.32-7.45); ABG PO2 45 mmHg (85-104); ABG TCO2 26 mEq/L (20-26)
[2018-09-10] MEDS: traZODone 50 MG TABLET PO SCH (21:50)
[2018-09-10] MEDS: Lithium Carbonate ER 450 MG TABLET.ER PO SCH (21:51)
[2018-09-11] MEDS: Ipratropium/Albuterol Neb 3 ML IH SCH ×7 (00:25→23:35)
[2018-09-11] MEDS: clonazePAM 0.5 MG TABLET PO SCH ×4 (01:42→22:14)
[2018-09-11] MEDS ORDERED: Acetaminophen 325 MG TABLET PO PRN (02:12)
[2018-09-11 02:20] LABS: ABG Base Excess 4 mEq/L (-2 to 3); ABG HCO3 27 mEq/L (21-27); ABG Oxygen Saturation 81 % (95-98); ABG PCO2 33 mmHg (35-45); ABG PH 7.51 pH Units (7.32-7.45); ABG PO2 40 mmHg (85-104); ABG TCO2 28 mEq/L (20-26)
--- NOTE | 2018-09-11 03:21 | Event Note ---
Date of Encounter: 09/11/18 Time of Encounter: 03:23 At 01:52 I was paged to the pt room for concerns of worsening respiratory status. On examination of the pt, she appeared to be using accessory mm of inspiration and had an increasing work of breathing. She stated she felt very tired and not good. On auscultation of the lungs she was very rhonchours and had diffuse coarse breath sounds. ABG was orderes stat. The pt indicated that she would be okay with intubation if needed. The pt was moved to ICU for intubation. Time out at 02:52. She was given 4mg versed and 20mg of etomidate. She threw up during the first intubation attempt. She desaturated to the high 70's. She was given another 2 mg of versed and etomidate. She continued to fight against intubation attempt and ativan 4mg was given. RT attempted intubation and the pt desaturated again. Anesthesia was paged for intubation. Cosmo Grant CRNA attempted intubation and was successful. Propofol and fentayl ordered for pain and sedation. Vent bundle ordered. Critical care consulted for ventilator management. Dr. Espinal and Dr. Maddox present.
[2018-09-11] MEDS ORDERED: Artificial Tears SOLN 15 ML BOTTLE BOTH EYES PRN (03:22)
[2018-09-11] MEDS: Pantoprazole 40 MG VIAL IVP SCH (05:15)
[2018-09-11] MEDS: *HR* Heparin 5,000 UNIT/ML VIAL SQ SCH ×2 (05:15→17:59)
[2018-09-11] MEDS: Artificial Tears SOLN 15 ML BOTTLE BOTH EYES SCH ×5 (05:16→22:15)
[2018-09-11 05:24] LABS: ABG Base Excess 4 mEq/L (-2 to 3); ABG HCO3 28 mEq/L (21-27); ABG Oxygen Saturation 100 % (95-98); ABG PCO2 40 mmHg (35-45); ABG PH 7.45 pH Units (7.32-7.45); ABG PO2 266 mmHg (85-104); ABG TCO2 29 mEq/L (20-26); Blood Gas Modality ASSIST CONTROL; Blood Gas PEEP 5 cm H2O; Blood Gas VT 450 cc
[2018-09-11 05:29] LABS: Lymphocytes % 13.8 %
[2018-09-11 05:31] LABS: Basophils % 0.2 %; Hematocrit 34.5 % (35.3-44.9); Hemoglobin 10.3 g/dL (11.5-15.4); Immature Granulocytes % 4.3 % (0-4); Immature Platelets 12.2 % (1.1-6.1); Lymphocytes # 1.3 K/mcL (0.6-4.6); Mean Corpuscular HGB Conc 29.9 g/dL (31.6-35.5); Mean Corpuscular Volume 70.3 fL (83.0-100.0); Monocytes # 0.6 K/mcL (0.0-1.3); Monocytes % 6.7 %; Neutrophils # 7.1 K/mcL (1.6-8.9); Nucleated Red Blood Cells 0.2 /100 WBC (0); Platelet Count 146 K/mcL (140-400); Red Blood Count 4.91 M/mcL (3.82-4.97); Red Cell Distribution Width 17.7 % (11.5-14.5); White Blood Count 9.4 K/mcL (4.3-11.1)
[2018-09-11 05:47] LABS: BUN/Creatinine Ratio 26 (6-26); Blood Urea Nitrogen 16 mg/dL (8-23); Calcium 9.1 mg/dL (8.6-10.3); Carbon Dioxide 25 mEq/L (23-29); Chloride 100 mEq/L (98-107); Glucose 162 mg/dL (70-105); Magnesium 1.7 mg/dL (1.6-2.6); Osmolality,Calculated 287 (280-300); Potassium 4.6 mEq/L (3.5-5.1); Sodium 136 mEq/L (136-145); eGFR For African Americans > 60 (> 60); eGFR For Non-African Americans > 60 (> 60)
[2018-09-11 06:02] LABS: Hypochromasia Present (Not Present); Microcytosis Present (Not Present); Platelet Estimate Normal (Normal); Polychromasia 1+ (Not Present)
[2018-09-11] MEDS: Budesonide/Formoterol 160/4.5 1 PUFF INH IH SCH ×2 (07:51→19:41)
[2018-09-11] MEDS: FentaNYL (PF) 1,000 MCG in 0.9 % Sodium Chloride 80 ML IVC SCH ×3 (07:52→18:40)
[2018-09-11] MEDS: Chlorhexidine Rinse 15 ML MOUTHWASH MM SCH ×2 (07:53→22:02)
[2018-09-11] MEDS: cefTRIAXone 1,000 MG in Water for inj. (sterile) 20 ML 10 ML IVP SCH (07:53)
[2018-09-11] MEDS: Aspirin Enteric Coated 325 MG Tablet PO SCH (07:55)
[2018-09-11] MEDS: predniSONE 20 MG TABLET PO SCH (07:55)
[2018-09-11 08:19] LABS: ABG Base Excess 2 mEq/L (-2 to 3); ABG HCO3 27 mEq/L (21-27); ABG Oxygen Saturation 92 % (95-98); ABG PCO2 45 mmHg (35-45); ABG PH 7.39 pH Units (7.32-7.45); ABG PO2 66 mmHg (85-104); ABG TCO2 28 mEq/L (20-26); Blood Gas PEEP 8 cm H2O; Blood Gas VT 380 cc
[2018-09-11] MEDS ORDERED: Azithromycin 250 MG TABLET PO SCH (09:00)
[2018-09-11] MEDS ORDERED: *HR* Midazolam HCl 5 MG/5 ML VIAL IVP ONE (12:26)
[2018-09-11] MEDS ORDERED: *HR* LORazepam 2 MG/ML VIAL IVP ONE (12:26)
[2018-09-11] MEDS ORDERED: *HR* Etomidate 40 MG/20 ML VIAL IVP ONE (12:26)
[2018-09-11] MEDS ORDERED: *HR* Succinylcholine 200 MG/10 ML VIAL IVP ONE (12:26)
[2018-09-11] MEDS: Ibuprofen 400 MG TABLET PO PRN (12:40)
--- NOTE | 2018-09-11 13:53 | Pulmonology Consult Note ---
Date of Encounter: 09/11/18 Time of Encounter: 07:05 Assessment and Plan (1) ARDS (adult respiratory distress syndrome) Current Visit: Yes Status: Acute Patient with acute hypoxic respiratory failure and she meets criteria for ARDS. I have changed her tidal volume to be compatible with lung protective strategy. Her plateau pressure remain below 30. I have also adjusted her PEEP for better oxygenation. Patient has underlying COPD and she will be on bronchodilators. Patient is diagnosed with bilateral pneumonia and supportive care. Patient's co ndition could deteriorate with her underlying COPD and high mortality off patient with ARDS on the invasive mechanical ventilation. Patient was occult intubation with multiple attempts and always risk of aspiration in this situation is a possibility. I spent 55 min of Critical Care time with this patient. It involved decision making of high complexity to assess, manipulate, and support vital organ system failure and/or to prevent further life threatening deterioration of the patient's condition. The time involved in the performance of separately reportable procedures was not counted toward critical care time. (2) COPD (chronic obstructive pulmonary disease) Current Visit: Yes Status: Chronic Bronchodilators and I do not feel strongly patient will benefit from systemic steroid especially with diagnosis of vital pneumonia which typically systemic steroid is not indicated. Qualifiers: COPD type: COPD with acute exacerbation Qualified Code(s): J44.1 - Chronic obstructive pulmonary disease with (acute) exacerbation (3) Acute respiratory failure with hypoxia Current Visit: Yes Status: Acute History of Present Illness Consult date: 09/11/18 Requesting physician: Saad Espinal Reason for consult: dyspnea Chief complaint: Fever and cough History of present illness: This history is taken from the chart since patient is not able to give any history and not able to reach family at this time. This is a 68-year-old female who presented to the emergency room having fever, cough and with nausea and vomiting for about 6 days prior to hospitalization. Patient was diagnosed with pneumonia. Her symptoms would worsen overnight and she was transferred to ICU. Because of her condition was worsening mainly respiratory status she was intubated and it appears to be difficult intubation with multiple attempts. Patient has history of COPD and she is long time tobacco smoker. There is reported productive thick sputum production with chest pain and body aches. Poor appetite was reported. Ms. Grullon is a 68 year old female who presents to the ER today with about a 5- 6 day history of fever, cough, body aches, nausea, vomiting, and fatigue. Her family brought her to the ER given her persistent and worsening symptoms. Wo rkup in ER revealed patient to have right lower lobe pneumonia and a mild oxygen requirement. She was therefore admitted to hospitalist service. Past Med Surg Social Fam HX - Past Medical History Medical history: arthritis, COPD, CVA, hyperlipidemia, hypertension Psychiatric history: anxiety, bipolar, depression, panic disorder - Past Surgical History Surgical History: appendectomy, , orthopedic, other Additional surgical history: cyst on ovary. right foot bunion - Social History Smoking Status: Current every day smoker Packs per day: 1.5 Smokeless Tobacco Status: No Alcohol use: none Drug use: none - Family History Mother History Unknown: Yes Father History Unknown: Yes Medications and Allergies Aspirin [Ecotrin] 325 mg PO DAILY 09/08/18 [History] Budesonide/Formoterol 160/4.5 [Symbicort 160/4.5] 2 puff IH BIDR 09/08/18 [History] Ergocalciferol (VITAMIN D2) [Vitamin D2] 50,000 unit PO TUSA 09/08/18 [History] [place] Carbonate ER [Eskalith] 450 mg PO HS 09/08/18 [History] Omeprazole [PriLOSEC] 40 mg PO DAILY 09/08/18 [History] Paroxetine [Paxil] 20 mg PO DAILY 09/08/18 [History] Simvastatin [Zocor] 10 mg PO HS 09/08/18 [History] Tiotropium [place] [Spiriva Respimat] 2 puff IH DAILY 09/08/18 [History] Verapamil [Isoptin] 40 mg PO TID 09/08/18 [History] clonazePAM [Clonazepam] 0.25 mg PO QAM 09/08/18 [History] clonazePAM [Clonazepam] 0.5 mg PO HS 09/08/18 [History] hydroCHLOROthiazide [Hydrochlorothiazide] 25 mg PO DAILY 09/08/18 [History] traZODone [TraZODone] 25 mg PO HS 09/08/18 [History] Allergy/AdvReac Type Severity Reaction Status Date / Time acetaminophen Allergy Nausea Verified 08/14/17 11:05 [From Darvocet-N] Erythromycin Base Allergy Nausea Verified 08/14/17 11:05 propoxyphene Allergy Nausea Verified 08/14/17 11:05 [From Darvocet-N] ROS unobtainable: due to mental status All Systems: The remainder of the systems were reviewed and are negative Physical Examination Vital Signs: Vital Signs, Last 4 Hours Temp Pulse Resp BP Pulse Ox 09/11/18 13:00 90 14 83/69 90 09/11/18 12:26 101.5 F H 09/11/18 12:00 101.5 F H 95 15 87/72 93 09/11/18 11:11 19 92 09/11/18 11:00 102 18 85/65 92 09/11/18 10:00 101.5 F H 103 20 95/73 91 General appearance: no acute distress Eyes: nonicteric Neck: supple Effort: mildly labored Inspection: hyperextended Auscultation: bilateral: rhonchi Tactile fremitus: bilateral: normal Cardiovascular: regular rate and rhythm Gastrointestinal: normoactive bowel sounds, non-distended Extremities: no cyanosis, no edema unable to assess due to mental status Ventilator Settings Ventilator Settings: Ventilator Settings, Last 8 Hours Ventilator Tidal Volume 450 Setting Ventilator Tidal Volume 450 Setting Ventilator Tidal Volume 380 Setting Ventilator Tidal Volume 450 Setting Ventilator Tidal Volume 380 Setting Ventilator Tidal Volume 450 Setting Ventilator Tidal Volume 380 Setting Ventilator Tidal Volume 450 Setting Ventilator Tidal Volume 380 Setting Ventilator Tidal Volume 450 Setting Ventilator Tidal Volume 450 Setting Ventilator Respiratory Rate 12 Setting Ventilator Respiratory Rate 12 Setting Ventilator Respiratory Rate 12 Setting Ventilator Respiratory Rate 12 Setting Ventilator Respiratory Rate 12 Setting Ventilator Respiratory Rate 12 Setting Ventilator Respiratory Rate 12 Setting Ventilator Respiratory Rate 12 Setting Ventilator Respiratory Rate 12 Setting Ventilator Respiratory Rate 12 Setting Ventilator Respiratory Rate 12 Setting Actual Respiratory Rate 29 Actual Respiratory Rate 29 Actual Respiratory Rate 18 Actual Respiratory Rate 29 Actual Respiratory Rate 28 Actual Respiratory Rate 29 Actual Respiratory Rate 29 Actual Respiratory Rate 34 Actual Respiratory Rate 29 Actual Respiratory Rate 29 Positive End Expiratory 5 Pressure Positive End Expiratory 5 Pressure Positive End Expiratory 8 Pressure Positive End Expiratory 5 Pressure Positive End Expiratory 8 Pressure Positive End Expiratory 5 Pressure Positive End Expiratory 8 Pressure Positive End Expiratory 5 Pressure Positive End Expiratory 5 Pressure Positive End Expiratory 5 Pressure Positive End Expiratory 5 Pressure Peak Inspiratory Airway 23 Pressure Peak Inspiratory Airway 23 Pressure Peak Inspiratory Airway 14 Pressure Peak Inspiratory Airway 23 Pressure Peak Inspiratory Airway 13 Pressure Peak Inspiratory Airway 23 Pressure Peak Inspiratory Airway 23 Pressure Peak Inspiratory Airway 27 Pressure Peak Inspiratory Airway 23 Pressure Peak Inspiratory Airway 23 Pressure Results - Laboratory Findings CBC and BMP: 09/12/18 16:53 09/12/18 06:29 ABG ABG pH 7.39 pH Units (7.32-7.45) 09/11/18 08:15 ABG pCO2 45 mmHg (35-45) 09/11/18 08:15 ABG pO2 66 mmHg (85-104) L D 09/11/18 08:15 ABG O2 Saturation 92 % (95-98) L 09/11/18 08:15 PT/INR, D-dimer PT 13.7 Seconds (9.4-12.1) H 09/09/18 01:49 Abnormal lab findings: Abnormal lab results Hgb 10.3 g/dL (11.5-15.4) L 09/11/18 04:10 Hct 34.5 % (35.3-44.9) L 09/11/18 04:10 MCV 70.3 fL (83.0-100.0) L 09/11/18 04:10 MCH 21.0 pg (28.0-33.3) L 09/11/18 04:10 MCHC 29.9 g/dL (31.6-35.5) L 09/11/18 04:10 RDW 17.7 % (11.5-14.5) H 09/11/18 04:10 Plt Count 100 K/mcL (140-400) L 09/10/18 05:39 Immature Gran % 4.3 % (0-4) H 09/11/18 04:10 8.0 % (0-4) H 09/10/18 05:39 0.4 K/mcL (0.6-4.6) L 09/09/18 01:49 Nucleated RBCs/100 WBC 0.2 /100 WBC (0) H 09/11/18 04:10 Slight Decrease (Normal) L 09/10/18 05:39 Present (Not Present) A 09/09/18 01:49 Immature Plt Fraction 12.2 % (1.1-6.1) H 09/11/18 04:10 1+ (Not Present) A 09/11/18 04:10 Present (Not Present) A 09/11/18 04:10 1+ (Not Present) A 09/10/18 05:39 1+ (Not Present) A 09/10/18 05:39 Present (Not Present) A 09/11/18 04:10 PT 13.7 Seconds (9.4-12.1) H 09/09/18 01:49 ABG pH 7.51 pH Units (7.32-7.45) H 09/11/18 02:13 ABG pCO2 33 mmHg (35-45) L 09/11/18 02:13 ABG pO2 66 mmHg (85-104) L D 09/11/18 08:15 ABG HCO3 28 mEq/L (21-27) H 09/11/18 05:20 ABG Total CO2 28 mEq/L (20-26) H 09/11/18 08:15 ABG O2 Saturation 92 % (95-98) L 09/11/18 08:15 ABG Base Excess 4 mEq/L (-2 to 3) H 09/11/18 05:20 Sodium 133 mEq/L (136-145) L 09/08/18 17:08 Potassium 3.1 mEq/L (3.5-5.1) L 09/08/18 17:08 Chloride 96 mEq/L (98-107) L 09/08/18 17:08 Carbon Dioxide 22 mEq/L (23-29) L 09/09/18 14:05 Glucose 162 mg/dL (70-105) H 09/11/18 04:10 279 (280-300) L 09/08/18 17:08 0.2 mg/dL (0.3-1.0) L 09/09/18 14:05 6.1 g/dL (6.4-8.9) L 09/09/18 14:05 6 Units/L (11-82) L 09/08/18 17:08 Ur Specific [place] < 1.005 (1.010-1.025) L 09/08/18 21:01 [place] 0.3 mEq/L (0.6-1.2) L 09/09/18 01:49 DETECTED (Not Detect) A 09/10/18 09:40 - Microbiology Findings Microbiology Findings: Microbiology, Last 48 Hours 09/10/18 09:40 Legionella Antigen - Final Urine,Clean Catch Streptococcus pneumoniae Antigen (M - Final - Diagnostic Findings Chest x-ray: report reviewed - Clinical Findings Intake & Output: Intake & Output 09/10/18 09/11/18 09/11/18 23:59 07:59 15:59 Intake Total 340 / 1060 175 / 275 100 / 275 Output Total 310 / 310 Balance 340 / -340 175 / -35 -210 / -35 Weight 66 kg Consult Discharge Plan - Plan Referrals: Sayda Villagran MD [Primary Care Provider] -
[2018-09-11] MEDS ORDERED: Lithium Oral Soln 300 MG/5 ML UDC PO SCH (21:00)
[2018-09-11] MEDS: traZODone 50 MG TABLET PO SCH (22:02)
[2018-09-12] MEDS: Artificial Tears SOLN 15 ML BOTTLE BOTH EYES SCH ×6 (00:30→20:53)
[2018-09-12] MEDS: FentaNYL (PF) 1,000 MCG in 0.9 % Sodium Chloride 80 ML IVC SCH ×3 (02:07→17:59)
[2018-09-12] MEDS: Ipratropium/Albuterol Neb 3 ML IH SCH ×6 (03:35→23:13)
[2018-09-12] MEDS ORDERED: Dextrose Gel 15 GM/37.5 ML TUBE PO PRN ×2 (04:23)
[2018-09-12] MEDS ORDERED: *HR* Dextrose 50 % in Water (Syg) 50 ML SYRINGE IVP PRN (04:23)
[2018-09-12] MEDS ORDERED: D5% in Water 1,000 ML IVC PRN (04:23)
[2018-09-12 04:35] LABS: ABG Base Excess 2 mEq/L (-2 to 3); ABG HCO3 28 mEq/L (21-27); ABG Oxygen Saturation 95 % (95-98); ABG PCO2 47 mmHg (35-45); ABG PH 7.38 pH Units (7.32-7.45); ABG PO2 78 mmHg (85-104); ABG TCO2 29 mEq/L (20-26); Blood Gas Modality AF; Blood Gas PEEP 8 cm H2O; Blood Gas VT 380 cc
[2018-09-12] MEDS: Pantoprazole 40 MG VIAL IVP SCH (05:20)
[2018-09-12] MEDS: Insulin LISPRO 300 UNITS/3 ML VIAL SQ SCH ×5 (05:20→20:54)
[2018-09-12] MEDS: *HR* Heparin 5,000 UNIT/ML VIAL SQ SCH (05:20)
[2018-09-12 06:52] LABS: Basophils % 0.2 %; Hemoglobin 10.1 g/dL (11.5-15.4); Lymphocytes % 18.3 %; Mean Corpuscular Volume 69.9 fL (83.0-100.0); Nucleated Red Blood Cells 0.2 /100 WBC (0); Segmented Neutrophils % 72.8 %
[2018-09-12 06:54] LABS: Hematocrit 33.9 % (35.3-44.9); Immature Granulocytes % 1.9 % (0-4); Immature Platelets 13.1 % (1.1-6.1); Lymphocytes # 1.9 K/mcL (0.6-4.6); Mean Corpuscular HGB Conc 29.8 g/dL (31.6-35.5); Mean Corpuscular Hemoglobin 20.8 pg (28.0-33.3); Monocytes # 0.7 K/mcL (0.0-1.3); Monocytes % 6.8 %; Neutrophils # 7.6 K/mcL (1.6-8.9); Platelet Count 149 K/mcL (140-400); Red Blood Count 4.85 M/mcL (3.82-4.97); Red Cell Distribution Width 17.8 % (11.5-14.5); White Blood Count 10.4 K/mcL (4.3-11.1)
[2018-09-12 07:02] LABS: BUN/Creatinine Ratio 34 (6-26); Blood Urea Nitrogen 36 mg/dL (8-23); Calcium 9.4 mg/dL (8.6-10.3); Carbon Dioxide 27 mEq/L (23-29); Chloride 102 mEq/L (98-107); Glucose 210 mg/dL (70-105); Osmolality,Calculated 299 (280-300); Potassium 4.4 mEq/L (3.5-5.1); Sodium 137 mEq/L (136-145); eGFR For African Americans > 60 (> 60); eGFR For Non-African Americans 52 (> 60)
[2018-09-12] MEDS ORDERED: 0.9 % Sodium Chloride 1,000 ML ONE (07:10)
[2018-09-12 07:11] LABS: Platelet Estimate Normal (Normal)
[2018-09-12 07:13] LABS: Anisocytosis 1+ (Not Present); Hypochromasia Present (Not Present)
[2018-09-12] MEDS: Budesonide/Formoterol 160/4.5 1 PUFF INH IH SCH ×2 (07:42→19:49)
[2018-09-12] MEDS: Aspirin Enteric Coated 325 MG Tablet PO SCH (07:51)
[2018-09-12] MEDS: Azithromycin 500 MG in D5% in Water 250 ML IVPB SCH (08:01)
[2018-09-12] MEDS: Chlorhexidine Rinse 15 ML MOUTHWASH MM SCH ×2 (08:01→20:53)
[2018-09-12] MEDS: cefTRIAXone 1,000 MG in Water for inj. (sterile) 20 ML 10 ML IVP SCH (08:01)
--- NOTE | 2018-09-12 08:28 | Pulmonology Progress Note ---
<Lashawn Mahoney - Last Filed: 09/12/18 10:53> Date of Encounter: 09/12/18 Time of Encounter: 10:46 Assessment and Plan (1) RLL pneumonia Current Visit: Yes Status: Acute Opacification in right lower lung lobe. Received azithromycin and Rocephin for 4 days Due to ongoing elevated temperature and fever 101, broadened antibiotic coverage to Zosyn and vancomycin and stopped Rocephin Respiratory panel showed adenovirus, continue supportive therapy Urine streptococcus and legionella antigen negative Qualifiers: Pneumonia type: due to unspecified organism Qualified Code(s): J18.1 - Lobar pneumonia, unspecified organism (2) COPD (chronic obstructive pulmonary disease) Current Visit: Yes Status: Chronic History of COPD which acute respiratory failure has scheduled DuoNeb and Symbicort Continue azithromycin for antinflammatory property Continue solu medrol 40 mg Q8HR due to COPD exacerbation Qualifiers: COPD type: COPD with acute exacerbation Qualified Code(s): J44.1 - Chronic obstructive pulmonary disease with (acute) exacerbation (3) Hypertension Current Visit: Yes Status: Chronic Holding any anti-antihypertensives at this time given she is currently sedated and blood pressure is stable Continue to monitor, if necessary can consider IV hydralazine or Lopressor Qualifiers: Hypertension type: essential hypertension Qualified Code(s): I10 - Essential (primary) hypertension (4) Acute respiratory failure with hypoxia Current Visit: Yes Status: Acute On 09/11/18 had an episode of worsening respiratory status with accessory muscle use, subsequently was intubated. Currently intubated and sedated with FiO2 of 60% Due to ongoing episode of elevated temperature, antibiotic regimen has been broadened to Zosyn and vancomycin with concern for aspiration pneumonia Continue 40 mg Solu-Medrol every 8 hours (5) DVT prophylaxis Current Visit: Yes Status: Acute SubQ heparin Subjective Interval history: Ms. Grullon was seen at bedside this morning. She was sedated and intubated. She remained hemodynamically stable overnight. Had episodes of elevated temperature and this morning had fever 101.4. Her labs remained within normal limits. Objective PUL Vital signs: Last Vital Signs Temp 100.4 F H 09/12/18 07:36 Pulse 86 09/12/18 07:00 Resp 18 09/12/18 07:00 BP 101/80 09/12/18 07:00 Pulse Ox 97 09/12/18 07:00 General appearance: no acute distress, other (sedated and intubated) Eyes: nonicteric ENT: oropharynx moist Neck: supple, no lymphadenopathy Auscultation: bilateral: diminished breath sounds (bilateral lower lung lobes) Cardiovascular: regular rate and rhythm Gastrointestinal: hypoactive bowel sounds, soft, non-tender Extremities: no cyanosis, no edema Musculoskeletal: no deformities unable to assess due to mental status (sedated and intubated) Ventilator Settings Ventilator Settings: Ventilator Settings, Last 8 Hours Ventilator Tidal Volume 380 Setting Ventilator Tidal Volume 380 Setting Ventilator Tidal Volume 380 Setting Ventilator Tidal Volume 380 Setting Ventilator Tidal Volume 380 Setting Ventilator Tidal Volume 380 Setting Ventilator Tidal Volume 380 Setting Ventilator Tidal Volume 380 Setting Ventilator Tidal Volume 380 Setting Ventilator Tidal Volume 380 Setting Ventilator Tidal Volume 380 Setting Ventilator Tidal Volume 380 Setting Ventilator Respiratory Rate 18 Setting Ventilator Respiratory Rate 18 Setting Ventilator Respiratory Rate 18 Setting Ventilator Respiratory Rate 18 Setting Ventilator Respiratory Rate 18 Setting Ventilator Respiratory Rate 18 Setting Ventilator Respiratory Rate 18 Setting Ventilator Respiratory Rate 18 Setting Ventilator Respiratory Rate 18 Setting Ventilator Respiratory Rate 18 Setting Ventilator Respiratory Rate 18 Setting Ventilator Respiratory Rate 18 Setting Actual Respiratory Rate 18 Actual Respiratory Rate 18 Actual Respiratory Rate 18 Actual Respiratory Rate 18 Actual Respiratory Rate 18 Actual Respiratory Rate 18 Actual Respiratory Rate 18 Actual Respiratory Rate 18 Actual Respiratory Rate 18 Actual Respiratory Rate 18 Actual Respiratory Rate 18 Positive End Expiratory 8 Pressure Positive End Expiratory 8 Pressure Positive End Expiratory 8 Pressure Positive End Expiratory 8 Pressure Positive End Expiratory 8 Pressure Positive End Expiratory 8 Pressure Positive End Expiratory 8 Pressure Positive End Expiratory 8 Pressure Positive End Expiratory 8 Pressure Positive End Expiratory 8 Pressure Positive End Expiratory 8 Pressure Positive End Expiratory 8 Pressure Peak Inspiratory Airway 21 Pressure Peak Inspiratory Airway 20 Pressure Peak Inspiratory Airway 22 Pressure Peak Inspiratory Airway 22 Pressure Peak Inspiratory Airway 19 Pressure Peak Inspiratory Airway 20 Pressure Peak Inspiratory Airway 19 Pressure Peak Inspiratory Airway 19 Pressure Peak Inspiratory Airway 18 Pressure Peak Inspiratory Airway 21 Pressure Peak Inspiratory Airway 18 Pressure Results - Laboratory Findings CBC and BMP: 09/12/18 06:29 09/12/18 06:29 ABG ABG pH 7.38 pH Units (7.32-7.45) 09/12/18 04:32 ABG pCO2 47 mmHg (35-45) H 09/12/18 04:32 ABG pO2 78 mmHg (85-104) L 09/12/18 04:32 ABG O2 Saturation 95 % (95-98) 09/12/18 04:32 PT/INR, D-dimer PT 13.7 Seconds (9.4-12.1) H 09/09/18 01:49 Abnormal lab findings: Abnormal lab results Hgb 10.1 g/dL (11.5-15.4) L 09/12/18 06:29 Hct 33.9 % (35.3-44.9) L 09/12/18 06:29 MCV 69.9 fL (83.0-100.0) L 09/12/18 06:29 MCH 20.8 pg (28.0-33.3) L 09/12/18 06:29 MCHC 29.8 g/dL (31.6-35.5) L 09/12/18 06:29 RDW 17.8 % (11.5-14.5) H 09/12/18 06:29 Plt Count 100 K/mcL (140-400) L 09/10/18 05:39 Immature Gran % 4.3 % (0-4) H 09/11/18 04:10 8.0 % (0-4) H 09/10/18 05:39 0.4 K/mcL (0.6-4.6) L 09/09/18 01:49 Nucleated RBCs/100 WBC 0.2 /100 WBC (0) H 09/12/18 06:29 Slight Decrease (Normal) L 09/10/18 05:39 Present (Not Present) A 09/09/18 01:49 Immature Plt Fraction 13.1 % (1.1-6.1) H 09/12/18 06:29 1+ (Not Present) A 09/11/18 04:10 Present (Not Present) A 09/12/18 06:29 1+ (Not Present) A 09/10/18 05:39 1+ (Not Present) A 09/12/18 06:29 Present (Not Present) A 09/11/18 04:10 PT 13.7 Seconds (9.4-12.1) H 09/09/18 01:49 ABG pH 7.51 pH Units (7.32-7.45) H 09/11/18 02:13 ABG pCO2 47 mmHg (35-45) H 09/12/18 04:32 ABG pO2 78 mmHg (85-104) L 09/12/18 04:32 ABG HCO3 28 mEq/L (21-27) H 09/12/18 04:32 ABG Total CO2 29 mEq/L (20-26) H 09/12/18 04:32 ABG O2 Saturation 92 % (95-98) L 09/11/18 08:15 ABG Base Excess 4 mEq/L (-2 to 3) H 09/11/18 05:20 Sodium 133 mEq/L (136-145) L 09/08/18 17:08 Potassium 3.1 mEq/L (3.5-5.1) L 09/08/18 17:08 Chloride 96 mEq/L (98-107) L 09/08/18 17:08 Carbon Dioxide 22 mEq/L (23-29) L 09/09/18 14:05 BUN 36 mg/dL (8-23) H 09/12/18 06:29 Est GFR (Non-Af Amer) 52 (> 60) L 09/12/18 06:29 34 (6-26) H 09/12/18 06:29 Glucose 210 mg/dL (70-105) H 09/12/18 06:29 POC Glucose 181 mg/dL (70-99) H 09/11/18 23:27 279 (280-300) L 09/08/18 17:08 0.2 mg/dL (0.3-1.0) L 09/09/18 14:05 6.1 g/dL (6.4-8.9) L 09/09/18 14:05 6 Units/L (11-82) L 09/08/18 17:08 Ur Specific [place] < 1.005 (1.010-1.025) L 09/08/18 21:01 [place] 0.3 mEq/L (0.6-1.2) L 09/09/18 01:49 DETECTED (Not Detect) A 09/10/18 09:40 - Microbiology Findings Microbiology Findings: Microbiology, Last 48 Hours 09/10/18 09:40 Legionella Antigen - Final Urine,Clean Catch Streptococcus pneumoniae Antigen (M - Final - Clinical Findings Intake & Output: Intake & Output 09/11/18 09/12/18 09/12/18 23:59 07:59 15:59 Intake Total 298 / 733 540 / 540 Output Total 400 / 710 375 / 375 Balance -102 / 23 165 / 165 Weight 70.3 kg Consult Discharge Plan - Plan Referrals: Sayda Villagran MD [Primary Care Provider] - <ChanoWinston pierce S - Last Filed: 09/13/18 00:16> Date of Encounter: 09/13/18 Objective PUL Vital signs: Last Vital Signs Temp 102.9 F H 09/12/18 22:34 Pulse 92 09/12/18 23:00 Resp 18 09/12/18 23:13 BP 78/55 09/12/18 23:13 Pulse Ox 93 09/12/18 23:13 Ventilator Settings Ventilator Settings: Ventilator Settings, Last 8 Hours Ventilator Tidal Volume 380 Setting Ventilator Tidal Volume 380 Setting Ventilator Tidal Volume 380 Setting Ventilator Tidal Volume 380 Setting Ventilator Tidal Volume 380 Setting Ventilator Tidal Volume 380 Setting Ventilator Tidal Volume 380 Setting Ventilator Tidal Volume 380 Setting Ventilator Tidal Volume 380 Setting Ventilator Tidal Volume 380 Setting Ventilator Tidal Volume 380 Setting Ventilator Respiratory Rate 18 Setting Ventilator Respiratory Rate 18 Setting Ventilator Respiratory Rate 18 Setting Ventilator Respiratory Rate 18 Setting Ventilator Respiratory Rate 18 Setting Ventilator Respiratory Rate 18 Setting Ventilator Respiratory Rate 18 Setting Ventilator Respiratory Rate 18 Setting Ventilator Respiratory Rate 18 Setting Ventilator Respiratory Rate 18 Setting Ventilator Respiratory Rate 18 Setting Actual Respiratory Rate 18 Actual Respiratory Rate 18 Actual Respiratory Rate 18 Actual Respiratory Rate 18 Actual Respiratory Rate 18 Actual Respiratory Rate 18 Actual Respiratory Rate 18 Actual Respiratory Rate 19 Actual Respiratory Rate 18 Actual Respiratory Rate 18 Actual Respiratory Rate 18 Positive End Expiratory 8 Pressure Positive End Expiratory 8 Pressure Positive End Expiratory 8 Pressure Positive End Expiratory 8 Pressure Positive End Expiratory 8 Pressure Positive End Expiratory 8 Pressure Positive End Expiratory 8 Pressure Positive End Expiratory 8 Pressure Positive End Expiratory 8 Pressure Positive End Expiratory 8 Pressure Positive End Expiratory 8 Pressure Peak Inspiratory Airway 20 Pressure Peak Inspiratory Airway 17 Pressure Peak Inspiratory Airway 17 Pressure Peak Inspiratory Airway 20 Pressure Peak Inspiratory Airway 18 Pressure Peak Inspiratory Airway 19 Pressure Peak Inspiratory Airway 20 Pressure Peak Inspiratory Airway 19 Pressure Peak Inspiratory Airway 20 Pressure Peak Inspiratory Airway 18 Pressure Peak Inspiratory Airway 19 Pressure Results - Laboratory Findings CBC and BMP: 09/12/18 16:53 09/12/18 06:29 ABG ABG pH 7.38 pH Units (7.32-7.45) 09/12/18 04:32 ABG pCO2 47 mmHg (35-45) H 09/12/18 04:32 ABG pO2 78 mmHg (85-104) L 09/12/18 04:32 ABG O2 Saturation 95 % (95-98) 09/12/18 04:32 PT/INR, D-dimer PT 12.2 Seconds (9.4-12.1) H 09/12/18 16:53 Abnormal lab findings: Abnormal lab results Hgb 10.0 g/dL (11.5-15.4) L 09/12/18 16:53 Hct 33.8 % (35.3-44.9) L 09/12/18 16:53 MCV 71.2 fL (83.0-100.0) L 09/12/18 16:53 MCH 21.1 pg (28.0-33.3) L 09/12/18 16:53 MCHC 29.6 g/dL (31.6-35.5) L 09/12/18 16:53 RDW 17.8 % (11.5-14.5) H 09/12/18 16:53 Plt Count 100 K/mcL (140-400) L 09/10/18 05:39 Immature Gran % 4.3 % (0-4) H 09/11/18 04:10 8.0 % (0-4) H 09/10/18 05:39 0.4 K/mcL (0.6-4.6) L 09/09/18 01:49 Nucleated RBCs/100 WBC 0.2 /100 WBC (0) H 09/12/18 06:29 Slight Decrease (Normal) L 09/10/18 05:39 Present (Not Present) A 09/09/18 01:49 Immature Plt Fraction 12.3 % (1.1-6.1) H 09/12/18 16:53 1+ (Not Present) A 09/11/18 04:10 Present (Not Present) A 09/12/18 06:29 1+ (Not Present) A 09/10/18 05:39 1+ (Not Present) A 09/12/18 06:29 Present (Not Present) A 09/11/18 04:10 PT 12.2 Seconds (9.4-12.1) H 09/12/18 16:53 Heparin Anti-Xa, Unfract 0.10 IU/mL (0.30-0.70) L 09/12/18 16:53 ABG pH 7.51 pH Units (7.32-7.45) H 09/11/18 02:13 ABG pCO2 47 mmHg (35-45) H 09/12/18 04:32 ABG pO2 78 mmHg (85-104) L 09/12/18 04:32 ABG HCO3 28 mEq/L (21-27) H 09/12/18 04:32 ABG Total CO2 29 mEq/L (20-26) H 09/12/18 04:32 ABG O2 Saturation 92 % (95-98) L 09/11/18 08:15 ABG Base Excess 4 mEq/L (-2 to 3) H 09/11/18 05:20 Sodium 133 mEq/L (136-145) L 09/08/18 17:08 Potassium 3.1 mEq/L (3.5-5.1) L 09/08/18 17:08 Chloride 96 mEq/L (98-107) L 09/08/18 17:08 Carbon Dioxide 22 mEq/L (23-29) L 09/09/18 14:05 BUN 36 mg/dL (8-23) H 09/12/18 06:29 Est GFR (Non-Af Amer) 52 (> 60) L 09/12/18 06:29 34 (6-26) H 09/12/18 06:29 Glucose 210 mg/dL (70-105) H 09/12/18 06:29 POC Glucose 181 mg/dL (70-99) H 09/11/18 23:27 279 (280-300) L 09/08/18 17:08 0.2 mg/dL (0.3-1.0) L 09/09/18 14:05 19.07 ng/mL (< 0.04) H* 09/12/18 20:31 6.1 g/dL (6.4-8.9) L 09/09/18 14:05 6 Units/L (11-82) L 09/08/18 17:08 1.27 ng/mL (0.00-0.15) H 09/12/18 15:45 Ur Specific [place] < 1.005 (1.010-1.025) L 09/08/18 21:01 [place] 0.3 mEq/L (0.6-1.2) L 09/09/18 01:49 DETECTED (Not Detect) A 09/10/18 09:40 - Microbiology Findings Microbiology Findings: Microbiology, Last 48 Hours 09/12/18 16:47 Blood Culture - Preliminary Peripheral Venipuncture Culture is incubating and being continuously monitored for growth. Final report to follow. 09/12/18 16:47 Blood Culture - Preliminary Peripheral Venipuncture Culture is incubating and being continuously monitored for growth. Final report to follow. - Clinical Findings Intake & Output: Intake & Output 09/12/18 09/12/18 09/13/18 15:59 23:59 07:59 Intake Total 589 / 2669 1540 / 2669 Output Total 250 / 1625 1000 / 1625 Balance 339 / 1044 540 / 1044 - Attending Attestation I saw and evaluated this patient and my medical decision-making was reviewed with the Resident Physician. I agree with the documented findings, disposition and treatment plan as described except to the extent set forth below. We independently had [id number] contact with the patient I spent 50 minutes of Critical Care time with this patient. It involved decision making of high complexity to assess, manipulate, and support vital organ system failure and/or to prevent further life threatening deterioration of the patient's condition. The time involved in the performance of separately reportable procedures was not counted toward critical care time. Patient seen and examined at bedside Labs, radiology, chart personally reviewed. Management was reviewed during multidisciplinary critical care rounds. MANAGER OF CORPORATE COMMUNICATIONS: Patient is not awake alert and following commands toxic/metabolic encephalopathy secondary to sepsis and also secondary to medication induced Pulm: Patient has right lower lobe pneumonia acceptable oxygenation and ventilation adjustment minute ventilation to aid in the low tidal volume strategy patient presented like ARDS like picture severe hypoxic respiratory failure patient compliance is better is significant improvement Cards: Patient is hemodynamically stable FEN-GI: Diet according to dietary Renal: Labs and output reviewed ID: To cover with broad-spectrum antibiotics Heme/Onc: Labs reviewed Endo: Glucose Monitored Integ/MSK: Skin Care per routine ICU Nursing Protocol to prevent ulcers. Lines: All lines examined without evidence of infection : Dispo: full code critically ill CODE:
[2018-09-12] MEDS ORDERED: Furosemide 20 MG/2 ML VIAL IVP ONE (10:12)
[2018-09-12] MEDS: Piperacillin/Tazobactam 3.375 GM in 0.9 % Sodium Chloride Mini Bag 100 ML IVPB SCH ×2 (13:47→20:56)
[2018-09-12] MEDS ORDERED: *HR* Metoprolol 5 MG/5 ML VIAL IVP PRN (14:07)
[2018-09-12] MEDS ORDERED: Acetaminophen 325 MG TABLET PO ONE (16:41)
[2018-09-12] MEDS ORDERED: *HR* Heparin 5,000 UNIT/ML VIAL IVP PRN ×2 (16:43)
[2018-09-12] MEDS ORDERED: *HR* Heparin 5,000 UNIT/ML VIAL IVP ONE (16:43)
[2018-09-12 17:01] LABS: Red Blood Count 4.75 M/mcL (3.82-4.97)
[2018-09-12 17:03] LABS: Hematocrit 33.8 % (35.3-44.9); Immature Platelets 12.3 % (1.1-6.1); Mean Corpuscular HGB Conc 29.6 g/dL (31.6-35.5); Mean Corpuscular Hemoglobin 21.1 pg (28.0-33.3); Mean Corpuscular Volume 71.2 fL (83.0-100.0); Platelet Count 145 K/mcL (140-400); Red Cell Distribution Width 17.8 % (11.5-14.5); White Blood Count 10.1 K/mcL (4.3-11.1)
[2018-09-12] MEDS ORDERED: Aspirin 325 MG TABLET PO ONE (17:10)
[2018-09-12 17:13] LABS: Heparin anti-factor XA UFH 0.1 IU/mL (0.30-0.70); INR 1.1; Prothrombin Time 12.2 Seconds (9.4-12.1)
[2018-09-12] MEDS: MethylPREDNISolone 40 MG/ML VIAL IVP SCH ×2 (17:57→23:54)
[2018-09-12] MEDS: Heparin 25,000 UNIT/250 ML D5W 25,000 UNIT/250 ML IV.SOLN IVC SCH (18:00)
[2018-09-12] MEDS ORDERED: Acetaminophen IV 1,000 MG/100 ML INFUS..BTL IVPB PRN (20:25)
[2018-09-12] MEDS: *HR* Metoprolol 5 MG/5 ML VIAL IVP SCH (20:53)
[2018-09-12] MEDS: clonazePAM 0.5 MG TABLET PO SCH (20:55)
[2018-09-12] MEDS: Ibuprofen 400 MG TABLET PO PRN (20:56)
[2018-09-12] MEDS: traZODone 50 MG TABLET PO SCH (21:13)
[2018-09-12] MEDS ORDERED: 0.9 % Sodium Chloride 500 ML IVC ONE (23:38)
[2018-09-13] MEDS: FentaNYL (PF) 1,000 MCG in 0.9 % Sodium Chloride 80 ML IVC SCH ×4 (00:35→23:38)
[2018-09-13] MEDS: Artificial Tears SOLN 15 ML BOTTLE BOTH EYES SCH ×6 (00:38→19:57)
[2018-09-13] MEDS: Insulin LISPRO 300 UNITS/3 ML VIAL SQ SCH ×6 (00:53→19:57)
[2018-09-13 01:36] LABS: Mean Corpuscular Volume 71.8 fL (83.0-100.0)
[2018-09-13 01:38] LABS: Basophils % 0.3 %; Hematocrit 31.8 % (35.3-44.9); Hemoglobin 9.3 g/dL (11.5-15.4); Immature Granulocytes % 1.6 % (0-4); Immature Platelets 11.4 % (1.1-6.1); Lymphocytes # 0.8 K/mcL (0.6-4.6); Lymphocytes % 12.2 %; Mean Corpuscular HGB Conc 29.2 g/dL (31.6-35.5); Monocytes # 0.2 K/mcL (0.0-1.3); Monocytes % 2.5 %; Neutrophils # 5.7 K/mcL (1.6-8.9); Platelet Count 125 K/mcL (140-400); Red Blood Count 4.43 M/mcL (3.82-4.97); Red Cell Distribution Width 18.1 % (11.5-14.5); Segmented Neutrophils % 83.4 %; White Blood Count 6.8 K/mcL (4.3-11.1)
[2018-09-13 01:55] LABS: BUN/Creatinine Ratio 35 (6-26); Blood Urea Nitrogen 36 mg/dL (8-23); Calcium 8.5 mg/dL (8.6-10.3); Carbon Dioxide 23 mEq/L (23-29); Chloride 106 mEq/L (98-107); Glucose 312 mg/dL (70-105); Magnesium 2.6 mg/dL (1.6-2.6); Osmolality,Calculated 306 (280-300); Potassium 4.5 mEq/L (3.5-5.1); Sodium 138 mEq/L (136-145); eGFR For African Americans > 60 (> 60); eGFR For Non-African Americans 54 (> 60)
[2018-09-13] MEDS: *HR* Metoprolol 5 MG/5 ML VIAL IVP SCH ×4 (02:00→19:58)
[2018-09-13 02:10] LABS: Anisocytosis 1+ (Not Present); Microcytosis Present (Not Present); Platelet Estimate Slight Decrease (Normal)
[2018-09-13] MEDS: Ipratropium/Albuterol Neb 3 ML IH SCH ×6 (03:17→23:02)
[2018-09-13 04:30] LABS: ABG Base Excess 2 mEq/L (-2 to 3); ABG HCO3 29 mEq/L (21-27); ABG Oxygen Saturation 93 % (95-98); ABG PCO2 54 mmHg (35-45); ABG PH 7.33 pH Units (7.32-7.45); ABG PO2 73 mmHg (85-104); ABG TCO2 30 mEq/L (20-26); Blood Gas Modality AF; Blood Gas PEEP 8 cm H2O; Blood Gas VT 380 cc
[2018-09-13] MEDS: Piperacillin/Tazobactam 3.375 GM in 0.9 % Sodium Chloride Mini Bag 100 ML IVPB SCH ×3 (04:53→19:59)
[2018-09-13] MEDS: Pantoprazole 40 MG VIAL IVP SCH (05:49)
--- NOTE | 2018-09-13 06:27 | Cardiology Consult Note ---
Date of Encounter: 09/13/18 Time of Encounter: 18:15 Assessment and Plan (1) NSTEMI (non-ST elevated myocardial infarction) Current Visit: Yes Status: Acute Continue heparin, troponin downtrending today Reviewing echo and overall picture (severe resp illness, no ischemia on EKG, no h/o angina), images and presentation most consistent with Takotsubo cardiomyopathy. LHC not urgently needed at this time. Start low dose BB and continue to follow. (2) CAP (community acquired pneumonia) Current Visit: Yes Status: Acute treatment per primary team Qualifiers: Laterality: right Lung location: lower lobe of lung Qualified Code(s): J18.1 - Lobar pneumonia, unspecified organism (3) ARDS (adult respiratory distress syndrome) Current Visit: Yes Status: Acute treatment per primary team (4) Systolic CHF Current Visit: Yes Status: Acute Appearance cw Takotsubo. low dose bb Qualifiers: Heart failure chronicity: acute Qualified Code(s): I50.21 - Acute systolic (congestive) heart failure Discussion w patient/family: The assessment and plan as outlined above was discussed with the patient and/or family members who expressed understanding and agreement. All questions were answered. Thank you for involving us in the care of your patient. Please call with any questions. History of Present Illness Consult date: 09/13/18 Consult reason: NSTEMI Chief complaint: dyspnea History of present illness: Ms. Grullon is a 68 year old female with no previous cardiac history or complaints of angina presents with dyspnea, respiratory distress with history of severe COPD, smoking ultimately goes into respiratory failure and requires intubation. ADenovirus comes back positive. Developed SVT last night wo ischemic changes, troponin bumped into teens but downtrending. Pressures holding without support and respiratory status is stable. Past Med Surg Social Fam HX - Past Medical History Medical history: arthritis, COPD, CVA, hyperlipidemia, hypertension Psychiatric history: anxiety, bipolar, depression, panic disorder - Past Surgical History Surgical History: appendectomy, , orthopedic, other Additional surgical history: cyst on ovary. right foot bunion - Social History Smoking Status: Current every day smoker Packs per day: 1.5 Smokeless Tobacco Status: No Alcohol use: none Drug use: none - Family History Mother History Unknown: Yes Father History Unknown: Yes Medications and Allergies Aspirin [Ecotrin] 325 mg PO DAILY 09/08/18 [History] Budesonide/Formoterol 160/4.5 [Symbicort 160/4.5] 2 puff IH BIDR 09/08/18 [H istory] Ergocalciferol (VITAMIN D2) [Vitamin D2] 50,000 unit PO TUSA 09/08/18 [History] [place] Carbonate ER [Eskalith] 450 mg PO HS 09/08/18 [History] Omeprazole [PriLOSEC] 40 mg PO DAILY 09/08/18 [History] Paroxetine [Paxil] 20 mg PO DAILY 09/08/18 [History] Simvastatin [Zocor] 10 mg PO HS 09/08/18 [History] Tiotropium [place] [Spiriva Respimat] 2 puff IH DAILY 09/08/18 [History] Verapamil [Isoptin] 40 mg PO TID 09/08/18 [History] clonazePAM [Clonazepam] 0.25 mg PO QA 09/08/18 [History] clonazePAM [Clonazepam] 0.5 mg PO HS 09/08/18 [History] hydroCHLOROthiazide [Hydrochlorothiazide] 25 mg PO DAILY 09/08/18 [History] traZODone [TraZODone] 25 mg PO HS 09/08/18 [History] Allergy/AdvReac Type Severity Reaction Status Date / Time acetaminophen Allergy Nausea Verified 08/14/17 11:05 [From Darvocet-N] Erythromycin Base Allergy Nausea Verified 08/14/17 11:05 propoxyphene Allergy Nausea Verified 08/14/17 11:05 [From Darvocet-N] ROS unobtainable: due to endotracheal tube, due to mental status All Systems Review: The remainder of the systems were reviewed and are negative Physical Examination Vital Signs, Last 4 Hours Temp Pulse Resp BP Pulse Ox 09/13/18 06:00 86 18 94/69 97 09/13/18 05:30 70 19 92/65 94 09/13/18 05:19 20 87/65 94 09/13/18 04:00 97.6 F 71 18 87/64 95 09/13/18 03:55 71 09/13/18 03:17 18 83/60 95 09/13/18 03:00 70 19 83/60 95 General: Other (intubated/sedated) HEENT: Normocephaly Neck: No JVD Cardiac: Reg Rate and Rhythm Lungs: Other (coarse) Neuro: No focal deficits noted Abdomen: Soft Skin: No rashes noted on visualized skin Musculoskeletal: No Chest Wall Tenderness Extremities: No Edema Results 09/13/18 01:24 09/13/18 01:24 Lab Results 09/12/18 09/12/18 09/12/18 06:29 06:29 15:45 WBC 10.4 Hgb 10.1 L Hct 33.9 L Plt Count 149 INR Sodium 137 Potassium 4.4 Chloride 102 Carbon Dioxide 27 BUN 36 H Creatinine 1.06 Glucose 210 H Calcium 9.4 Magnesium Troponin I 10.43 H* 09/12/18 09/12/18 09/12/18 16:53 16:53 17:31 WBC 10.1 Hgb 10.0 L Hct 33.8 L Plt Count 145 INR 1.1 Sodium Potassium Chloride Carbon Dioxide BUN Creatinine Glucose Calcium Magnesium Troponin I 13.64 H* 09/12/18 09/13/18 09/13/18 20:31 01:24 01:24 WBC 6.8 Hgb 9.3 L Hct 31.8 L Plt Count 125 L INR Sodium 138 Potassium 4.5 Chloride 106 Carbon Dioxide 23 BUN 36 H Creatinine 1.02 Glucose 312 H Calcium 8.5 L Magnesium 2.6 Troponin I 19.07 H* 09/13/18 01:24 WBC Hgb Hct Plt Count INR Sodium Potassium Chloride Carbon Dioxide BUN Creatinine Glucose Calcium Magnesium Troponin I 18.65 H* - Imaging and Cardiology Echo: image reviewed (EF 25% in pattern of Takotsubo) - EKG Interpretation EKG results cardiology: personally reviewed, no diagnostic ischemia Consult Discharge Plan - Plan Referrals: Sayda Villagran MD [Primary Care Provider] -
[2018-09-13] MEDS: Budesonide/Formoterol 160/4.5 1 PUFF INH IH SCH ×2 (07:39→19:46)
[2018-09-13] MEDS: MethylPREDNISolone 40 MG/ML VIAL IVP SCH ×2 (08:35→15:21)
[2018-09-13] MEDS: clonazePAM 0.5 MG TABLET PO SCH ×2 (08:35→19:59)
[2018-09-13] MEDS: Chlorhexidine Rinse 15 ML MOUTHWASH MM SCH ×2 (08:35→19:58)
[2018-09-13] MEDS: Aspirin Enteric Coated 325 MG Tablet PO SCH (08:39)
[2018-09-13] MEDS: Azithromycin 500 MG in D5% in Water 250 ML IVPB SCH (08:39)
[2018-09-13] MEDS ORDERED: Perflutren Lipid Microsphere 1.3 ML in 0.9 % Sodium Chloride 8.7 ML IVP ONE (08:54)
--- NOTE | 2018-09-13 12:24 | Pulmonology Progress Note ---
<Lashawn Mahoney - Last Filed: 09/13/18 12:18> Date of Encounter: 09/13/18 Time of Encounter: 09:35 Assessment and Plan (1) RLL pneumonia Current Visit: Yes Status: Acute Opacification in right lower lung lobe. Received Rocephin for 5 days Due to ongoing elevated temperature and fever 103, broadened antibiotic coverage yesterday to Zosyn and vancomycin and stopped Rocephin Respiratory panel showed adenovirus, continue supportive therapy Urine streptococcus and legionella antigen negative Qualifiers: Pneumonia type: due to unspecified organism Qualified Code(s): J18.1 - Lobar pneumonia, unspecified organism (2) COPD (chronic obstructive pulmonary disease) Current Visit: Yes Status: Chronic History of COPD which acute respiratory failure has scheduled DuoNeb and Symbicort Stopped Azithromycin given recent episodes of arrhythmia Continue solu medrol 40 mg Q8HR due to COPD exacerbation Qualifiers: COPD type: COPD with acute exacerbation Qualified Code(s): J44.1 - Chronic obstructive pulmonary disease with (acute) exacerbation (3) Hypertension Current Visit: Yes Status: Chronic Holding any anti-antihypertensives at this time given she is currently sedated and blood pressure is stable Received Lopressor yesterday given arrhythmia. Blood pressure started to decrease, holding at this time Continue to monitor, if necessary can consider IV hydralazine or Lopressor Qualifiers: Hypertension type: essential hypertension Qualified Code(s): I10 - Essential (primary) hypertension (4) Acute respiratory failure with hypoxia Current Visit: Yes Status: Acute On 09/11/18 had an episode of worsening respiratory status with accessory muscle use, subsequently was intubated. Currently intubated and sedated with FiO2 of 50% Due to ongoing episode of elevated temperature, antibiotic regimen broadened yesterday to Zosyn and vancomycin with concern for aspiration pneumonia Continue 40 mg Solu-Medrol every 8 hours (5) Fever Current Visit: Yes Status: Acute Developed elevated temperature since her admission escalated on 09/11/18. On 09/13/18 temperature increased to 103 She received IV Tylenol with no improvement Temperature decreased after ice bath, this morning temperature has improved and currently 96.4. If fever develops again consider CT images of head, chest and abdomen/pelvis Qualifiers: Fever type: unspecified Qualified Code(s): R50.9 - Fever, unspecified (6) NSTEMI (non-ST elevated myocardial infarction) Current Visit: Yes Status: Acute Today had an episode of SVT sequelae received metoprolol IV and responded converted to normal sinus rhythm Radiology was consulted and they recommended continuing heparin drip and giving aspirin which she received. Troponin continue to increase peaked at 19.07. She underwent an echo today which showed severe global left ventricular systolic dysfunction Cardiology decided to hold LHC as they believe the finding is consistent with Taktsubo cardiomyopathy (7) Systolic CHF Current Visit: Yes Status: Acute Had an episode of SVT yesterday converted to normal sinus rhythm after IV Lopressor Had an echo this morning due to elevated troponin which shows EF of 25-30%. Qualifiers: Heart failure chronicity: acute Qualified Code(s): I50.21 - Acute systolic (congestive) heart failure (8) DVT prophylaxis Current Visit: Yes Status: Acute SubQ heparin Subjective Interval history: Ms. Grullon was seen at bedside this morning. She was sedated and intubated. She remained hemodynamically stable overnight. Yesterday had episodes of SVT which resolved after metoprolol. Had episodes of elevated temperature and this morning had fever of 103, not responding to acetaminophen. Per nursing overnight required ice pack to alleviate persistent fever. Her troponin also increased to 19.07. Cardiology had been consulted. She underwent an echo this morning which showed global left ventricular systolic dysfunction with EF of 25-30%. Cardiology recommended holding left heart catheter. Objective PUL Vital signs: Last Vital Signs Temp 96.4 F L 09/13/18 08:36 Pulse 83 09/13/18 11:00 Resp 19 09/13/18 11:14 BP 100/67 09/13/18 11:14 Pulse Ox 96 09/13/18 11:14 General appearance: no acute distress, other (Sedated and intubated ) Eyes: nonicteric ENT: oropharynx moist Neck: supple Auscultation: bilateral: diminished breath sounds Gastrointestinal: hypoactive bowel sounds, soft, non-distended Extremities: no cyanosis, no edema, pulses normal Musculoskeletal: no deformities unable to assess due to mental status (sedated and intubated) Ventilator Settings Ventilator Settings: Ventilator Settings, Last 8 Hours Ventilator Tidal Volume 380 Setting Ventilator Tidal Volume 380 Setting Ventilator Tidal Volume 380 Setting Ventilator Tidal Volume 380 Setting Ventilator Tidal Volume 380 Setting Ventilator Tidal Volume 380 Setting Ventilator Tidal Volume 380 Setting Ventilator Tidal Volume 380 Setting Ventilator Tidal Volume 380 Setting Ventilator Tidal Volume 380 Setting Ventilator Tidal Volume 380 Setting Ventilator Respiratory Rate 18 Setting Ventilator Respiratory Rate 18 Setting Ventilator Respiratory Rate 18 Setting Ventilator Respiratory Rate 18 Setting Ventilator Respiratory Rate 18 Setting Ventilator Respiratory Rate 18 Setting Ventilator Respiratory Rate 18 Setting Ventilator Respiratory Rate 18 Setting Ventilator Respiratory Rate 18 Setting Ventilator Respiratory Rate 18 Setting Ventilator Respiratory Rate 18 Setting Actual Respiratory Rate 22 Actual Respiratory Rate 18 Actual Respiratory Rate 18 Actual Respiratory Rate 18 Actual Respiratory Rate 18 Actual Respiratory Rate 18 Actual Respiratory Rate 18 Actual Respiratory Rate 18 Actual Respiratory Rate 18 Actual Respiratory Rate 18 Actual Respiratory Rate 20 Positive End Expiratory 8 Pressure Positive End Expiratory 8 Pressure Positive End Expiratory 8 Pressure Positive End Expiratory 8 Pressure Positive End Expiratory 8 Pressure Positive End Expiratory 8 Pressure Positive End Expiratory 8 Pressure Positive End Expiratory 8 Pressure Positive End Expiratory 8 Pressure Positive End Expiratory 8 Pressure Positive End Expiratory 8 Pressure Peak Inspiratory Airway 20 Pressure Peak Inspiratory Airway 19 Pressure Peak Inspiratory Airway 19 Pressure Peak Inspiratory Airway 18 Pressure Peak Inspiratory Airway 19 Pressure Peak Inspiratory Airway 19 Pressure Peak Inspiratory Airway 18 Pressure Peak Inspiratory Airway 19 Pressure Peak Inspiratory Airway 21 Pressure Peak Inspiratory Airway 18 Pressure Peak Inspiratory Airway 20 Pressure Results - Laboratory Findings CBC and BMP: 09/13/18 01:24 09/13/18 01:24 ABG ABG pH 7.33 pH Units (7.32-7.45) 09/13/18 04:27 ABG pCO2 54 mmHg (35-45) H 09/13/18 04:27 ABG pO2 73 mmHg (85-104) L 09/13/18 04:27 ABG O2 Saturation 93 % (95-98) L 09/13/18 04:27 PT/INR, D-dimer PT 12.2 Seconds (9.4-12.1) H 09/12/18 16:53 Abnormal lab findings: Abnormal lab results Hgb 9.3 g/dL (11.5-15.4) L 09/13/18 01:24 Hct 31.8 % (35.3-44.9) L 09/13/18 01:24 MCV 71.8 fL (83.0-100.0) L 09/13/18 01:24 MCH 21.0 pg (28.0-33.3) L 09/13/18 01:24 MCHC 29.2 g/dL (31.6-35.5) L 09/13/18 01:24 RDW 18.1 % (11.5-14.5) H 09/13/18 01:24 Plt Count 125 K/mcL (140-400) L 09/13/18 01:24 Immature Gran % 4.3 % (0-4) H 09/11/18 04:10 8.0 % (0-4) H 09/10/18 05:39 0.4 K/mcL (0.6-4.6) L 09/09/18 01:49 Nucleated RBCs/100 WBC 0.2 /100 WBC (0) H 09/12/18 06:29 Slight Decrease (Normal) L 09/13/18 01:24 Present (Not Present) A 09/09/18 01:49 Immature Plt Fraction 11.4 % (1.1-6.1) H 09/13/18 01:24 1+ (Not Present) A 09/11/18 04:10 Present (Not Present) A 09/12/18 06:29 1+ (Not Present) A 09/10/18 05:39 1+ (Not Present) A 09/13/18 01:24 Present (Not Present) A 09/13/18 01:24 PT 12.2 Seconds (9.4-12.1) H 09/12/18 16:53 Heparin Anti-Xa, Unfract 1.03 IU/mL (0.30-0.70) H* 09/13/18 01:24 ABG pH 7.51 pH Units (7.32-7.45) H 09/11/18 02:13 ABG pCO2 54 mmHg (35-45) H 09/13/18 04:27 ABG pO2 73 mmHg (85-104) L 09/13/18 04:27 ABG HCO3 29 mEq/L (21-27) H 09/13/18 04:27 ABG Total CO2 30 mEq/L (20-26) H 09/13/18 04:27 ABG O2 Saturation 93 % (95-98) L 09/13/18 04:27 ABG Base Excess 4 mEq/L (-2 to 3) H 09/11/18 05:20 Sodium 133 mEq/L (136-145) L 09/08/18 17:08 Potassium 3.1 mEq/L (3.5-5.1) L 09/08/18 17:08 Chloride 96 mEq/L (98-107) L 09/08/18 17:08 Carbon Dioxide 22 mEq/L (23-29) L 09/09/18 14:05 BUN 36 mg/dL (8-23) H 09/13/18 01:24 Est GFR (Non-Af Amer) 54 (> 60) L 09/13/18 01:24 35 (6-26) H 09/13/18 01:24 Glucose 312 mg/dL (70-105) H 09/13/18 01:24 POC Glucose 264 mg/dL (70-99) H 09/12/18 23:17 306 (280-300) H 09/13/18 01:24 Calcium 8.5 mg/dL (8.6-10.3) L 09/13/18 01:24 0.2 mg/dL (0.3-1.0) L 09/09/18 14:05 18.65 ng/mL (< 0.04) H* 09/13/18 01:24 6.1 g/dL (6.4-8.9) L 09/09/18 14:05 6 Units/L (11-82) L 09/08/18 17:08 1.27 ng/mL (0.00-0.15) H 09/12/18 15:45 Ur Specific [place] < 1.005 (1.010-1.025) L 09/08/18 21:01 [place] 0.3 mEq/L (0.6-1.2) L 09/09/18 01:49 DETECTED (Not Detect) A 09/10/18 09:40 - Microbiology Findings Microbiology Findings: Microbiology, Last 48 Hours 09/12/18 16:47 Blood Culture - Preliminary Peripheral Venipuncture Culture is incubating and being continuously monitored for growth. Final report to follow. 09/12/18 16:47 Blood Culture - Preliminary Peripheral Venipuncture Culture is incubating and being continuously monitored for growth. Final report to follow. - Clinical Findings Intake & Output: Intake & Output 09/12/18 09/13/18 09/13/18 23:59 07:59 15:59 Intake Total 1369 / 2840 1152.6 / 1152.6 0 / 1152.6 Output Total 1000 / 5 425 / 825 400 / 825 Balance 369 / 765 727.6 / 327.6 -400 / 327.6 Weight 71.8 kg Consult Discharge Plan - Plan Referrals: Sayda Villagran MD [Primary Care Provider] - <Winston Haywood - Last Filed: 09/13/18 22:15> Date of Encounter: 09/13/18 Objective PUL Vital signs: Last Vital Signs Temp 99.7 F H 09/13/18 19:34 Pulse 99 09/13/18 21:00 Resp 18 09/13/18 21:28 BP 120/88 09/13/18 21:28 Pulse Ox 94 09/13/18 21:28 Ventilator Settings Ventilator Settings: Ventilator Settings, Last 8 Hours Ventilator Tidal Volume 380 Setting Ventilator Tidal Volume 380 Setting Ventilator Tidal Volume 380 Setting Ventilator Tidal Volume 380 Setting Ventilator Tidal Volume 380 Setting Ventilator Tidal Volume 380 Setting Ventilator Tidal Volume 380 Setting Ventilator Tidal Volume 380 Setting Ventilator Tidal Volume 380 Setting Ventilator Tidal Volume 380 Setting Ventilator Tidal Volume 380 Setting Ventilator Respiratory Rate 18 Setting Ventilator Respiratory Rate 18 Setting Ventilator Respiratory Rate 18 Setting Ventilator Respiratory Rate 18 Setting Ventilator Respiratory Rate 18 Setting Ventilator Respiratory Rate 18 Setting Ventilator Respiratory Rate 18 Setting Ventilator Respiratory Rate 18 Setting Ventilator Respiratory Rate 18 Setting Ventilator Respiratory Rate 18 Setting Ventilator Respiratory Rate 18 Setting Actual Respiratory Rate 18 Actual Respiratory Rate 18 Actual Respiratory Rate 19 Actual Respiratory Rate 20 Actual Respiratory Rate 18 Actual Respiratory Rate 18 Actual Respiratory Rate 18 Actual Respiratory Rate 18 Actual Respiratory Rate 20 Actual Respiratory Rate 20 Actual Respiratory Rate 18 Positive End Expiratory 8 Pressure Positive End Expiratory 8 Pressure Positive End Expiratory 8 Pressure Positive End Expiratory 8 Pressure Positive End Expiratory 8 Pressure Positive End Expiratory 8 Pressure Positive End Expiratory 8 Pressure Positive End Expiratory 8 Pressure Positive End Expiratory 8 Pressure Positive End Expiratory 8 Pressure Positive End Expiratory 8 Pressure Peak Inspiratory Airway 24 Pressure Peak Inspiratory Airway 20 Pressure Peak Inspiratory Airway 22 Pressure Peak Inspiratory Airway 24 Pressure Peak Inspiratory Airway 26 Pressure Peak Inspiratory Airway 21 Pressure Peak Inspiratory Airway 21 Pressure Peak Inspiratory Airway 21 Pressure Peak Inspiratory Airway 22 Pressure Peak Inspiratory Airway 24 Pressure Peak Inspiratory Airway 22 Pressure Results - Laboratory Findings CBC and BMP: 09/13/18 01:24 09/13/18 01:24 ABG ABG pH 7.33 pH Units (7.32-7.45) 09/13/18 04:27 ABG pCO2 54 mmHg (35-45) H 09/13/18 04:27 ABG pO2 73 mmHg (85-104) L 09/13/18 04:27 ABG O2 Saturation 93 % (95-98) L 09/13/18 04:27 PT/INR, D-dimer PT 12.2 Seconds (9.4-12.1) H 09/12/18 16:53 Abnormal lab findings: Abnormal lab results Hgb 9.3 g/dL (11.5-15.4) L 09/13/18 01:24 Hct 31.8 % (35.3-44.9) L 09/13/18 01:24 MCV 71.8 fL (83.0-100.0) L 09/13/18 01:24 MCH 21.0 pg (28.0-33.3) L 09/13/18 01:24 MCHC 29.2 g/dL (31.6-35.5) L 09/13/18 01:24 RDW 18.1 % (11.5-14.5) H 09/13/18 01:24 Plt Count 125 K/mcL (140-400) L 09/13/18 01:24 Immature Gran % 4.3 % (0-4) H 09/11/18 04:10 8.0 % (0-4) H 09/10/18 05:39 0.4 K/mcL (0.6-4.6) L 09/09/18 01:49 Nucleated RBCs/100 WBC 0.2 /100 WBC (0) H 09/12/18 06:29 Slight Decrease (Normal) L 09/13/18 01:24 Present (Not Present) A 09/09/18 01:49 Immature Plt Fraction 11.4 % (1.1-6.1) H 09/13/18 01:24 1+ (Not Present) A 09/11/18 04:10 Present (Not Present) A 09/12/18 06:29 1+ (Not Present) A 09/10/18 05:39 1+ (Not Present) A 09/13/18 01:24 Present (Not Present) A 09/13/18 01:24 PT 12.2 Seconds (9.4-12.1) H 09/12/18 16:53 Heparin Anti-Xa, Unfract 1.03 IU/mL (0.30-0.70) H* 09/13/18 01:24 ABG pH 7.51 pH Units (7.32-7.45) H 09/11/18 02:13 ABG pCO2 54 mmHg (35-45) H 09/13/18 04:27 ABG pO2 73 mmHg (85-104) L 09/13/18 04:27 ABG HCO3 29 mEq/L (21-27) H 09/13/18 04:27 ABG Total CO2 30 mEq/L (20-26) H 09/13/18 04:27 ABG O2 Saturation 93 % (95-98) L 09/13/18 04:27 ABG Base Excess 4 mEq/L (-2 to 3) H 09/11/18 05:20 Sodium 133 mEq/L (136-145) L 09/08/18 17:08 Potassium 3.1 mEq/L (3.5-5.1) L 09/08/18 17:08 Chloride 96 mEq/L (98-107) L 09/08/18 17:08 Carbon Dioxide 22 mEq/L (23-29) L 09/09/18 14:05 BUN 36 mg/dL (8-23) H 09/13/18 01:24 Est GFR (Non-Af Amer) 54 (> 60) L 09/13/18 01:24 35 (6-26) H 09/13/18 01:24 Glucose 312 mg/dL (70-105) H 09/13/18 01:24 POC Glucose 264 mg/dL (70-99) H 09/12/18 23:17 306 (280-300) H 09/13/18 01:24 Calcium 8.5 mg/dL (8.6-10.3) L 09/13/18 01:24 0.2 mg/dL (0.3-1.0) L 09/09/18 14:05 18.65 ng/mL (< 0.04) H* 09/13/18 01:24 6.1 g/dL (6.4-8.9) L 09/09/18 14:05 6 Units/L (11-82) L 09/08/18 17:08 1.27 ng/mL (0.00-0.15) H 09/12/18 15:45 Ur Specific [place] < 1.005 (1.010-1.025) L 09/08/18 21:01 [place] 0.3 mEq/L (0.6-1.2) L 09/09/18 01:49 DETECTED (Not Detect) A 09/10/18 09:40 - Microbiology Findings Microbiology Findings: Microbiology, Last 48 Hours 09/08/18 17:08 Blood Culture - Final Peripheral Venipuncture No growth. Final report. 09/08/18 17:36 Blood Culture - Final Peripheral Venipuncture No growth. Final report. 09/12/18 16:47 Blood Culture - Preliminary Peripheral Venipuncture Culture is incubating and being continuously monitored for growth. Final report to follow. 09/12/18 16:47 Blood Culture - Preliminary Peripheral Venipuncture Culture is incubating and being continuously monitored for growth. Final report to follow. - Clinical Findings Intake & Output: Intake & Output 09/13/18 09/13/18 09/13/18 07:59 15:59 23:59 Intake Total 1152.6 / 2121.6 148 / 2121.6 821 / 2121.6 Output Total 425 / 1425 700 / 1425 300 / 1425 Balance 727.6 / 696.6 -552 / 696.6 521 / 696.6 Weight 71.8 kg - Attending Attestation - Attending Attestation I saw and evaluated this patient and my medical decision-making was reviewed with the Resident Physician. I agree with the documented findings, disposition and treatment plan as described except to the extent set forth below. We independently had [id number] contact with the patient I spent 35 minutes of Critical Care time with this patient. It involved decision making of high complexity to assess, manipulate, and support vital organ system failure and/or to prevent further life threatening deterioration of the patient's condition. The time involved in the performance of separately rep ortable procedures was not counted toward critical care time. Patient seen and examined at bedside Labs, radiology, chart personally reviewed. Management was reviewed during multidisciplinary critical care rounds. CLASSIFICATION AND TREATMENT DIRECTOR: Patient is not awake alert and following commands toxic/metabolic encephalopathy secondary to sepsis and also secondary to medication induced Pulm: Patient has right lower lobe pneumonia acceptable oxygenation and ventilation adjustment minute ventilation to aid in the low tidal volume strategy patient presented like ARDS like picture severe hypoxic respiratory failure patient compliance is better is significant improvement 6/ patient has right lower lobe pneumonia still with significant V/Q mismatch. The significant encephalopathy patient is not ready for his breathing trial Cards: Patient is hemodynamically stable FEN-GI: Diet according to dietary Renal: Labs and output reviewed ID: To cover with broad-spectrum antibiotics if patient spikes fever again will need allen CT scan will hold off CT scan for now to continue high grade fever can be due to adenovirus. Heme/Onc: Labs reviewed Endo: Glucose Monitored Integ/MSK: Skin Care per routine ICU Nursing Protocol to prevent ulcers. Lines: All lines examined without evidence of infection : Dispo: full code critically ill CODE:
[2018-09-14] MEDS: Artificial Tears SOLN 15 ML BOTTLE BOTH EYES SCH ×7 (00:42→23:34)
[2018-09-14] MEDS: MethylPREDNISolone 40 MG/ML VIAL IVP SCH ×4 (00:43→23:34)
[2018-09-14] MEDS: *HR* Metoprolol 5 MG/5 ML VIAL IVP SCH ×4 (00:47→20:06)
[2018-09-14] MEDS: Insulin LISPRO 300 UNITS/3 ML VIAL SQ SCH ×7 (00:59→23:35)
[2018-09-14] MEDS: Ipratropium/Albuterol Neb 3 ML IH SCH ×6 (03:36→23:29)
[2018-09-14 04:20] LABS: Basophils % 0.2 %; Hematocrit 31.3 % (35.3-44.9); Red Cell Distribution Width 18.3 % (11.5-14.5)
[2018-09-14 04:21] LABS: White Blood Count 12.5 K/mcL (4.3-11.1)
[2018-09-14 04:22] LABS: Hemoglobin 9.1 g/dL (11.5-15.4); Immature Granulocytes % 1.8 % (0-4); Immature Platelets 14.5 % (1.1-6.1); Lymphocytes # 1.1 K/mcL (0.6-4.6); Lymphocytes % 8.9 %; Mean Corpuscular HGB Conc 29.1 g/dL (31.6-35.5); Mean Corpuscular Hemoglobin 20.8 pg (28.0-33.3); Mean Corpuscular Volume 71.5 fL (83.0-100.0); Monocytes # 0.7 K/mcL (0.0-1.3); Monocytes % 5.5 %; Neutrophils # 10.5 K/mcL (1.6-8.9); Nucleated Red Blood Cells 0.4 /100 WBC (0); Platelet Count 227 K/mcL (140-400); Red Blood Count 4.38 M/mcL (3.82-4.97); Segmented Neutrophils % 83.6 %
[2018-09-14 04:40] LABS: BUN/Creatinine Ratio 58 (6-26); Blood Urea Nitrogen 49 mg/dL (8-23); Calcium 10.2 mg/dL (8.6-10.3); Carbon Dioxide 29 mEq/L (23-29); Chloride 107 mEq/L (98-107); Glucose 264 mg/dL (70-105); Osmolality,Calculated 322 (280-300); Potassium 4.4 mEq/L (3.5-5.1); Sodium 145 mEq/L (136-145); eGFR For African Americans > 60 (> 60); eGFR For Non-African Americans > 60 (> 60)
[2018-09-14 04:43] LABS: ABG Base Excess 6 mEq/L (-2 to 3); ABG HCO3 29 mEq/L (21-27); ABG Oxygen Saturation 96 % (95-98); ABG PCO2 37 mmHg (35-45); ABG PH 7.51 pH Units (7.32-7.45); ABG PO2 77 mmHg (85-104); ABG TCO2 30 mEq/L (20-26); Blood Gas Modality ASSIST CONTROL; Blood Gas PEEP 5 cm H2O; Blood Gas VT 380 cc
[2018-09-14] MEDS: Pantoprazole 40 MG VIAL IVP SCH (05:13)
[2018-09-14] MEDS: Piperacillin/Tazobactam 3.375 GM in 0.9 % Sodium Chloride Mini Bag 100 ML IVPB SCH ×3 (05:13→20:07)
[2018-09-14] MEDS: Heparin 25,000 UNIT/250 ML D5W 25,000 UNIT/250 ML IV.SOLN IVC SCH ×2 (05:16→20:02)
[2018-09-14] MEDS: FentaNYL (PF) 1,000 MCG in 0.9 % Sodium Chloride 80 ML IVC SCH ×2 (06:09→19:59)
[2018-09-14] MEDS: Budesonide/Formoterol 160/4.5 1 PUFF INH IH SCH ×2 (07:41→19:40)
--- NOTE | 2018-09-14 07:41 | Pulmonology Progress Note ---
<Aurelio Cole - Last Filed: 09/14/18 15:42> Date of Encounter: 09/14/18 Time of Encounter: 09:42 Assessment and Plan (1) Acute respiratory failure with hypoxia Current Visit: Yes Status: Acute - On 09/11/18, patient developed worsening respiratory distress with accessory muscle use and required intubation - Etiology is unknown at this time; likely secondary to pneumonia and adenovirus - Vent settings: Ventilator respiratory rate 12, TV 500, FiO2 60%, PEEP 8 Plan: - Continue antibiotic therapy with vancomycin and Zosyn and Solu-Medrol as documented below - Continue propofol and fentayl for sedation (2) RLL pneumonia Current Visit: Yes Status: Acute As demonstrated on imaging studies: - CXR 09/08: Acute RLL PNA - CT chest 09/10: RML PNA, trace reactive R pleural effusion, small RUL pulmonary nodules - CXR 09/11: Progressive airspace disease compared to prior study - CXR 09/13: Increasing airspace consolidation in RML and RLL - CXR 09/14: No interval change in R pleural effusion and R-sided airspace opacity - Causative organism is unknown at this time - White count is elevated this morning at 12.5 - Pro-calcitonin elevated at 1.27 - Respiratory infection panel was positive for adenovirus - Initially received Rocephin for a total of 5 days; antibiotic coverage was broadened to vancomycin and Zosyn after patient developed recurrent fevers Plan: - Blood cultures from 09/12 are currently pending; will follow cultures and tailor antibiotic therapy as appropriate - Continue IV vancomycin and Zosyn; (Day 3 of both) - Continue contact precautions - Solu-Medrol 40 mg Qualifiers: Pneumonia type: due to unspecified organism Qualified Code(s): J18.1 - Lobar pneumonia, unspecified organism (3) NSTEMI (non-ST elevated myocardial infarction) Current Visit: Yes Status: Acute - Initial troponin levels drawn on 09/09 were <0.03 - Troponin levels drawn on 09/12: 10.43, 13.64, 19.07, 18.65 - Patient was started on heparin drip and cardiology was consulted - TTE on 09/13/18: Ejection fraction 25-30%, severe global and segmental LV systolic dysfunction, mild LV diastolic dysfunction, mild mitral and tricuspid regurgitation - Cardiology is following; plan was initially to do LHC, but are holding off due to findings consistent with Takotsubo cardiomyopathy Plan: - Cardiology recommended starting patient on a low-dose beta merlyn - Would appreciate any further recommendations - Continue heparin drip (4) Fever Current Visit: Yes Status: Acute - Patient has had elevated temperature since 09/11 - Temperature at initially decreased after ice bath earlier in her stay - MAXIMUM TEMPERATURE in the last 24 hours is been 103.3 - We will consider obtaining CT scan of the abdomen and pelvis to look for alternate infection source if this does not resolve (5) HFrEF (heart failure with reduced ejection fraction) Current Visit: Yes Status: Acute - As demonstrated on echocardiogram - Cardiology following (6) COPD (chronic obstructive pulmonary disease) Current Visit: Yes Status: Chronic - Known history of COPD in the setting of acute respiratory failure - Plan as above Qualifiers: COPD type: COPD with acute exacerbation Qualified Code(s): J44.1 - Chronic obstructive pulmonary disease with (acute) exacerbation (7) Hypertension Current Visit: Yes Status: Chronic - PRN Lopressor Qualifiers: Hypertension type: essential hypertension Qualified Code(s): I10 - Essential (primary) hypertension (8) DVT prophylaxis Current Visit: Yes Status: Acute - SubQ heparin Subjective Interval history: Patient seen and examined at bedside. She is currently intubated and sedated. CT scan of the head this morning was ordered due to some neurologic changes with no corneal reflex; CT scan of the head showed no acute abnormalities. Sedation was increased. If this continues, we may consider a neurology consult. Patient has also continued to have elevated temperatures despite being on broad-spectrum antibiotic therapy. Her MAXIMUM TEMPERATURE the last 24 hours has been 103.3 degrees. We will consider obtaining a CT scan of the abdomen and pelvis to look for an alternative infection source if this does not improve. She is currently on propofol and fentanyl for sedation. Cardiology is following; would appreciate any further recommendations regarding her elevated troponin level. She is still on heparin drip. She does not exhibit any signs of distress or agitation at this time. Objective PUL Vital signs: Last Vital Signs Temp 98.2 F 09/14/18 03:13 Pulse 101 09/14/18 07:00 Resp 11 09/14/18 07:00 BP 114/82 09/14/18 07:00 Pulse Ox 90 09/14/18 07:00 General: Intubated and sedated; nonresponsive; no signs of acute agitation or distress Head: Dry mucous membranes noted; endotracheal tube in place Neck: No deformities noted Respiratory: Diminished breath sounds bilaterally; rales present bilaterally, right greater than left Cardiovascular: RRR, +S1/+S2; no murmurs, rubs, gallops Abdomen: Soft, nontender Extremities: No clubbing, edema, or cyanosis Neurological: Obtunded Psychiatric: Unable to assess Skin: Pale appearing Ventilator Settings Ventilator Settings: Ventilator Settings, Last 8 Hours Ventilator Tidal Volume 380 Setting Ventilator Tidal Volume 380 Setting Ventilator Tidal Volume 380 Setting Ventilator Tidal Volume 380 Setting Ventilator Tidal Volume 380 Setting Ventilator Tidal Volume 380 Setting Ventilator Tidal Volume 380 Setting Ventilator Tidal Volume 380 Setting Ventilator Tidal Volume 380 Setting Ventilator Tidal Volume 380 Setting Ventilator Tidal Volume 380 Setting Ventilator Respiratory Rate 18 Setting Ventilator Respiratory Rate 18 Setting Ventilator Respiratory Rate 18 Setting Ventilator Respiratory Rate 18 Setting Ventilator Respiratory Rate 18 Setting Ventilator Respiratory Rate 18 Setting Ventilator Respiratory Rate 18 Setting Ventilator Respiratory Rate 18 Setting Ventilator Respiratory Rate 18 Setting Ventilator Respiratory Rate 18 Setting Ventilator Respiratory Rate 18 Setting Actual Respiratory Rate 11 Actual Respiratory Rate 21 Actual Respiratory Rate 20 Actual Respiratory Rate 20 Actual Respiratory Rate 18 Actual Respiratory Rate 18 Actual Respiratory Rate 19 Actual Respiratory Rate 19 Actual Respiratory Rate 18 Actual Respiratory Rate 22 Actual Respiratory Rate 21 Positive End Expiratory 8 Pressure Positive End Expiratory 8 Pressure Positive End Expiratory 8 Pressure Positive End Expiratory 8 Pressure Positive End Expiratory 8 Pressure Positive End Expiratory 8 Pressure Positive End Expiratory 8 Pressure Positive End Expiratory 8 Pressure Positive End Expiratory 8 Pressure Positive End Expiratory 8 Pressure Positive End Expiratory 8 Pressure Peak Inspiratory Airway 15 Pressure Peak Inspiratory Airway 26 Pressure Peak Inspiratory Airway 28 Pressure Peak Inspiratory Airway 24 Pressure Peak Inspiratory Airway 23 Pressure Peak Inspiratory Airway 11 Pressure Peak Inspiratory Airway 22 Pressure Peak Inspiratory Airway 23 Pressure Peak Inspiratory Airway 23 Pressure Peak Inspiratory Airway 26 Pressure Results - Laboratory Findings CBC and BMP: 09/14/18 03:54 09/14/18 03:54 ABG ABG pH 7.51 pH Units (7.32-7.45) H 09/14/18 04:40 ABG pCO2 37 mmHg (35-45) 09/14/18 04:40 ABG pO2 77 mmHg (85-104) L 09/14/18 04:40 ABG O2 Saturation 96 % (95-98) 09/14/18 04:40 PT/INR, D-dimer PT 12.2 Seconds (9.4-12.1) H 09/12/18 16:53 Abnormal lab findings: Abnormal lab results WBC 12.5 K/mcL (4.3-11.1) H D 09/14/18 03:54 Hgb 9.1 g/dL (11.5-15.4) L 09/14/18 03:54 Hct 31.3 % (35.3-44.9) L 09/14/18 03:54 MCV 71.5 fL (83.0-100.0) L 09/14/18 03:54 MCH 20.8 pg (28.0-33.3) L 09/14/18 03:54 MCHC 29.1 g/dL (31.6-35.5) L 09/14/18 03:54 RDW 18.3 % (11.5-14.5) H 09/14/18 03:54 Plt Count 125 K/mcL (140-400) L 09/13/18 01:24 Immature Gran % 4.3 % (0-4) H 09/11/18 04:10 8.0 % (0-4) H 09/10/18 05:39 10.5 K/mcL (1.6-8.9) H 09/14/18 03:54 0.4 K/mcL (0.6-4.6) L 09/09/18 01:49 Nucleated RBCs/100 WBC 0.4 /100 WBC (0) H 09/14/18 03:54 Slight Decrease (Normal) L 09/13/18 01:24 Present (Not Present) A 09/09/18 01:49 Immature Plt Fraction 14.5 % (1.1-6.1) H 09/14/18 03:54 1+ (Not Present) A 09/11/18 04:10 Present (Not Present) A 09/12/18 06:29 1+ (Not Present) A 09/10/18 05:39 1+ (Not Present) A 09/13/18 01:24 Present (Not Present) A 09/13/18 01:24 PT 12.2 Seconds (9.4-12.1) H 09/12/18 16:53 Heparin Anti-Xa, Unfract 1.03 IU/mL (0.30-0.70) H* 09/13/18 01:24 ABG pH 7.51 pH Units (7.32-7.45) H 09/14/18 04:40 ABG pCO2 54 mmHg (35-45) H 09/13/18 04:27 ABG pO2 77 mmHg (85-104) L 09/14/18 04:40 ABG HCO3 29 mEq/L (21-27) H 09/14/18 04:40 ABG Total CO2 30 mEq/L (20-26) H 09/14/18 04:40 ABG O2 Saturation 93 % (95-98) L 09/13/18 04:27 ABG Base Excess 6 mEq/L (-2 to 3) H 09/14/18 04:40 Sodium 133 mEq/L (136-145) L 09/08/18 17:08 Potassium 3.1 mEq/L (3.5-5.1) L 09/08/18 17:08 Chloride 96 mEq/L (98-107) L 09/08/18 17:08 Carbon Dioxide 22 mEq/L (23-29) L 09/09/18 14:05 BUN 49 mg/dL (8-23) H 09/14/18 03:54 Est GFR (Non-Af Amer) 54 (> 60) L 09/13/18 01:24 58 (6-26) H 09/14/18 03:54 Glucose 264 mg/dL (70-105) H 09/14/18 03:54 POC Glucose 269 mg/dL (70-99) H 09/14/18 00:46 322 (280-300) H 09/14/18 03:54 Calcium 8.5 mg/dL (8.6-10.3) L 09/13/18 01:24 0.2 mg/dL (0.3-1.0) L 09/09/18 14:05 18.65 ng/mL (< 0.04) H* 09/13/18 01:24 6.1 g/dL (6.4-8.9) L 09/09/18 14:05 6 Units/L (11-82) L 09/08/18 17:08 1.27 ng/mL (0.00-0.15) H 09/12/18 15:45 Ur Specific [place] < 1.005 (1.010-1.025) L 09/08/18 21:01 [place] 0.3 mEq/L (0.6-1.2) L 09/09/18 01:49 DETECTED (Not Detect) A 09/10/18 09:40 - Microbiology Findings Microbiology Findings: Microbiology, Last 48 Hours 09/08/18 17:08 Blood Culture - Final Peripheral Venipuncture No growth. Final report. 09/08/18 17:36 Blood Culture - Final Peripheral Venipuncture No growth. Final report. 09/12/18 16:47 Blood Culture - Preliminary Peripheral Venipuncture Culture is incubating and being continuously monitored for growth. Final report to follow. 09/12/18 16:47 Blood Culture - Preliminary Peripheral Venipuncture Culture is incubating and being continuously monitored for growth. Final report to follow. - Clinical Findings Intake & Output: Intake & Output 09/13/18 09/13/18 09/14/18 15:59 23:59 07:59 Intake Total 148 / 2221.6 921 / 2221.6 856.1 / 856.1 Output Total 700 / 1675 300 / 1675 325 / 325 Balance -552 / 546.6 621 / 546.6 531.1 / 531.1 Weight 70.9 kg Consult Discharge Plan - Plan Referrals: Sayda Villagran MD [Primary Care Provider] - <Nely Cabral - Last Filed: 09/18/18 08:49> Date of Encounter: 09/14/18 Assessment and Plan (1) ARDS (adult respiratory distress syndrome) Current Visit: Yes Status: Acute (2) COPD (chronic obstructive pulmonary disease) Current Visit: Yes Status: Chronic Qualifiers: COPD type: COPD with acute exacerbation Qualified Code(s): J44.1 - Chronic obstructive pulmonary disease with (acute) exacerbation (3) Acute respiratory failure with hypoxia Current Visit: Yes Status: Acute Objective PUL Vital signs: Last Vital Signs Temp 98.7 F 09/14/18 07:20 Pulse 123 09/14/18 09:00 Resp 21 09/14/18 09:00 BP 124/100 09/14/18 09:00 Pulse Ox 95 09/14/18 09:36 Ventilator Settings Ventilator Settings: Ventilator Settings, Last 8 Hours Ventilator Tidal Volume 500 Setting Ventilator Tidal Volume 500 Setting Ventilator Tidal Volume 500 Setting Ventilator Tidal Volume 450 Setting Ventilator Tidal Volume 380 Setting Ventilator Tidal Volume 380 Setting Ventilator Tidal Volume 380 Setting Ventilator Tidal Volume 380 Setting Ventilator Tidal Volume 380 Setting Ventilator Tidal Volume 380 Setting Ventilator Tidal Volume 380 Setting Ventilator Respiratory Rate 12 Setting Ventilator Respiratory Rate 12 Setting Ventilator Respiratory Rate 12 Setting Ventilator Respiratory Rate 18 Setting Ventilator Respiratory Rate 18 Setting Ventilator Respiratory Rate 18 Setting Ventilator Respiratory Rate 18 Setting Ventilator Respiratory Rate 18 Setting Ventilator Respiratory Rate 18 Setting Ventilator Respiratory Rate 18 Setting Ventilator Respiratory Rate 18 Setting Actual Respiratory Rate 20 Actual Respiratory Rate 22 Actual Respiratory Rate 18 Actual Respiratory Rate 11 Actual Respiratory Rate 21 Actual Respiratory Rate 20 Actual Respiratory Rate 20 Actual Respiratory Rate 18 Actual Respiratory Rate 18 Actual Respiratory Rate 19 Positive End Expiratory 5 Pressure Positive End Expiratory 5 Pressure Positive End Expiratory 5 Pressure Positive End Expiratory 8 Pressure Positive End Expiratory 8 Pressure Positive End Expiratory 8 Pressure Positive End Expiratory 8 Pressure Positive End Expiratory 8 Pressure Positive End Expiratory 8 Pressure Positive End Expiratory 8 Pressure Positive End Expiratory 8 Pressure Peak Inspiratory Airway 32 Pressure Peak Inspiratory Airway 30 Pressure Peak Inspiratory Airway 14 Pressure Peak Inspiratory Airway 15 Pressure Peak Inspiratory Airway 26 Pressure Peak Inspiratory Airway 28 Pressure Peak Inspiratory Airway 24 Pressure Peak Inspiratory Airway 23 Pressure Peak Inspiratory Airway 11 Pressure Results - Laboratory Findings CBC and BMP: 09/18/18 04:22 09/18/18 04:22 ABG ABG pH 7.51 pH Units (7.32-7.45) H 09/14/18 04:40 ABG pCO2 37 mmHg (35-45) 09/14/18 04:40 ABG pO2 77 mmHg (85-104) L 09/14/18 04:40 ABG O2 Saturation 96 % (95-98) 09/14/18 04:40 PT/INR, D-dimer PT 12.2 Seconds (9.4-12.1) H 09/12/18 16:53 Abnormal lab findings: Abnormal lab results WBC 12.5 K/mcL (4.3-11.1) H D 09/14/18 03:54 Hgb 9.1 g/dL (11.5-15.4) L 09/14/18 03:54 Hct 31.3 % (35.3-44.9) L 09/14/18 03:54 MCV 71.5 fL (83.0-100.0) L 09/14/18 03:54 MCH 20.8 pg (28.0-33.3) L 09/14/18 03:54 MCHC 29.1 g/dL (31.6-35.5) L 09/14/18 03:54 RDW 18.3 % (11.5-14.5) H 09/14/18 03:54 Plt Count 125 K/mcL (140-400) L 09/13/18 01:24 Immature Gran % 4.3 % (0-4) H 09/11/18 04:10 8.0 % (0-4) H 09/10/18 05:39 10.5 K/mcL (1.6-8.9) H 09/14/18 03:54 0.4 K/mcL (0.6-4.6) L 09/09/18 01:49 Nucleated RBCs/100 WBC 0.4 /100 WBC (0) H 09/14/18 03:54 Slight Decrease (Normal) L 09/13/18 01:24 Present (Not Present) A 09/09/18 01:49 Immature Plt Fraction 14.5 % (1.1-6.1) H 09/14/18 03:54 1+ (Not Present) A 09/11/18 04:10 Present (Not Present) A 09/12/18 06:29 1+ (Not Present) A 09/10/18 05:39 1+ (Not Present) A 09/13/18 01:24 Present (Not Present) A 09/13/18 01:24 PT 12.2 Seconds (9.4-12.1) H 09/12/18 16:53 Heparin Anti-Xa, Unfract 1.03 IU/mL (0.30-0.70) H* 09/13/18 01:24 ABG pH 7.51 pH Units (7.32-7.45) H 09/14/18 04:40 ABG pCO2 54 mmHg (35-45) H 09/13/18 04:27 ABG pO2 77 mmHg (85-104) L 09/14/18 04:40 ABG HCO3 29 mEq/L (21-27) H 09/14/18 04:40 ABG Total CO2 30 mEq/L (20-26) H 09/14/18 04:40 ABG O2 Saturation 93 % (95-98) L 09/13/18 04:27 ABG Base Excess 6 mEq/L (-2 to 3) H 09/14/18 04:40 Sodium 133 mEq/L (136-145) L 09/08/18 17:08 Potassium 3.1 mEq/L (3.5-5.1) L 09/08/18 17:08 Chloride 96 mEq/L (98-107) L 09/08/18 17:08 Carbon Dioxide 22 mEq/L (23-29) L 09/09/18 14:05 BUN 49 mg/dL (8-23) H 09/14/18 03:54 Est GFR (Non-Af Amer) 54 (> 60) L 09/13/18 01:24 58 (6-26) H 09/14/18 03:54 Glucose 264 mg/dL (70-105) H 09/14/18 03:54 POC Glucose 269 mg/dL (70-99) H 09/14/18 00:46 322 (280-300) H 09/14/18 03:54 Calcium 8.5 mg/dL (8.6-10.3) L 09/13/18 01:24 0.2 mg/dL (0.3-1.0) L 09/09/18 14:05 18.65 ng/mL (< 0.04) H* 09/13/18 01:24 6.1 g/dL (6.4-8.9) L 09/09/18 14:05 6 Units/L (11-82) L 09/08/18 17:08 1.27 ng/mL (0.00-0.15) H 09/12/18 15:45 Ur Specific [place] < 1.005 (1.010-1.025) L 09/08/18 21:01 [place] 0.3 mEq/L (0.6-1.2) L 09/09/18 01:49 DETECTED (Not Detect) A 09/10/18 09:40 - Microbiology Findings Microbiology Findings: Microbiology, Last 48 Hours 09/08/18 17:08 Blood Culture - Final Peripheral Venipuncture No growth. Final report. 09/08/18 17:36 Blood Culture - Final Peripheral Venipuncture No growth. Final report. 09/12/18 16:47 Blood Culture - Preliminary Peripheral Venipuncture Culture is incubating and being continuously monitored for growth. Final report to follow. 09/12/18 16:47 Blood Culture - Preliminary Peripheral Venipuncture Culture is incubating and being continuously monitored for growth. Final report to follow. - Clinical Findings Intake & Output: Intake & Output 09/13/18 09/14/18 09/14/18 23:59 07:59 15:59 Intake Total 921 / 2221.6 856.1 / 856.1 0 / 856.1 Output Total 300 / 1675 525 / 525 Balance 621 / 546.6 331.1 / 331.1 0 / 331.1 Weight 70.9 kg - Attending Attestation I examined this patient and my medical decision-making was reviewed with the Resident Physician. I agree with the documented findings, disposition and treatment plan as described except to the extent set forth below. Patient seen and examined. Labs, radiology, chart personally reviewed. Agree with resident's history and physical, assessment, plan with following comments: REGISTERED NURSE STEP DOWN: Patient doesn't follows commands, Head CT done and it was negative. Will consider neurology consultation. Encephalopathy was not present during admiss ion. Pulmonary: Acceptable oxygenation and ventilation. Changed vent setting. I suspect this is be very difficult to get her off and liberate her from the mechanical ventilation due to her significant pulmonary disease. Continue bronchodilators and empiric antibiotics. Cardiovascular: Shank Threader is following up. I doubt there will be any intervention. However prognosis is poor. GI: Nutrition per dietary and GI prophylaxis per routine Heme: DVT prophylaxis per routine ID: Continue antibiotics and plan to de-escalation. Sepsis was not mentioned at admission, but my suspicion it was based on the history of pneumonia. Renal; urine out put and renal function reviewed Endorcine: blood glucose is monitored Lines: all lines checked and no evidence of infections Skin: skin care to prevent pressure ulcers per nursing routine care Dispo: ICU Code: Full which was changed to DNR-A. I had long discussion with the son and also her about her CODE STATUS and I have advised him at least to give her some time today and of the week to be reevaluated before withdrawing medical care. They understand and they agreed. Prognosis. overall is poor I spent 45 min of Critical Care time with this patient. It involved decision making of high complexity to assess, manipulate, and support vital organ system failure and/or to prevent further life threatening deterioration of the patient's condition. The time involved in the performance of separately reportable procedures was not counted toward critical care time.
[2018-09-14] MEDS: Chlorhexidine Rinse 15 ML MOUTHWASH MM SCH ×2 (07:48→20:07)
[2018-09-14] MEDS: clonazePAM 0.5 MG TABLET PO SCH (07:49)
[2018-09-14] MEDS: Aspirin Enteric Coated 325 MG Tablet PO SCH (07:49)
--- NOTE | 2018-09-14 08:51 | Electrocardiograph Report ---
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
--- NOTE | 2018-09-14 08:56 | Electrocardiograph Report ---
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
--- NOTE | 2018-09-14 08:59 | Electrocardiograph Report ---
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
--- NOTE | 2018-09-14 10:18 | Cardiology Progress Note ---
Date of Encounter: 09/14/18 Time of Encounter: 10:16 Assessment and Plan (1) NSTEMI (non-ST elevated myocardial infarction) Current Visit: Yes Status: Acute Troponin elevated up to 19.07 and trending down. Nstemi type I vs type II in the setting of respiratory failure. EKG with no acute ST changes. TTE shows severely reduced EF. EF 25-30%. Mild MR and mild TR. Discussed with Dr. 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 Continue heparin gtt. Emergent LHC was not recommended. Pt undergoing neurological work-up due to decreased responsiveness off sedation. Remains intubated. We will continue to follow. (2) ARDS (adult respiratory distress syndrome) Current Visit: Yes Status: Acute treatment per primary team Discussion w patient/family: The assessment and plan as outlined above was discussed with the patient and/or family members who expressed understanding and agreement. All questions were answered. Thank you for involving us in the care of your patient. Please call with any questions. Subjective Principal diagnosis: NSTEMI, CMP, respiratory failure Interval history: Ms. Grullon remains intubated. Sedation removed and noted to have decreased response to stimulation. Pt also noted to have agonal breathing. Neuro work-up pending. Objective Vital Signs, Last 4 Hours Temp Pulse Resp BP Pulse Ox 09/14/18 09:36 95 09/14/18 09:00 123 21 124/100 88 09/14/18 08:00 125 22 124/100 89 09/14/18 07:42 18 92 09/14/18 07:20 98.7 F 09/14/18 07:00 101 11 114/82 90 General: Other (Non-responsive ) HEENT: Atraumatic, Normocephaly, Mucus Membranes Moist, Other (ET tube intact) Cardiac: Reg Rate and Rhythm Lungs: Other (Corse rhonci throughout) Neuro: Other (Not responsive to tactile stimuli. Noted no blinking) Abdomen: Soft Skin: No rashes noted on visualized skin Musculoskeletal: No Chest Wall Tenderness Extremities: No Clubbing, No Cyanosis, No Edema, Normal Pulses Results 09/14/18 03:54 09/14/18 03:54 Lab Results 09/14/18 09/14/18 03:54 03:54 WBC 12.5 H D Hgb 9.1 L Hct 31.3 L Plt Count 227 D Sodium 145 Potassium 4.4 Chloride 107 Carbon Dioxide 29 BUN 49 H Creatinine 0.85 Glucose 264 H Calcium 10.2 - Imaging and Cardiology Echo: report reviewed - EKG Interpretation EKG results cardiology: personally reviewed Consult Discharge Plan - Plan Referrals: Sayda Villagran MD [Primary Care Provider] -
[2018-09-14] MEDS ORDERED: *HR* Midazolam HCl 2 MG/2 ML VIAL IVP ONE (10:35)
[2018-09-14 10:46] LABS: ABG Base Excess 2 mEq/L (-2 to 3); ABG HCO3 28 mEq/L (21-27); ABG Oxygen Saturation 86 % (95-98); ABG PCO2 47 mmHg (35-45); ABG PH 7.39 pH Units (7.32-7.45); ABG PO2 53 mmHg (85-104); ABG TCO2 29 mEq/L (20-26); Blood Gas Modality ASSIST CONTROL; Blood Gas PEEP 8 cm H2O; Blood Gas VT 500 cc
[2018-09-14] MEDS: Aspirin 81 MG TAB.CHEW PO SCH (12:11)
[2018-09-14] MEDS: Docusate Oral Soln 100 MG/10 ML UDC GTUBE SCH ×2 (12:11→20:06)
[2018-09-15] MEDS: *HR* Metoprolol 5 MG/5 ML VIAL IVP SCH ×4 (02:14→21:28)
[2018-09-15] MEDS: Ipratropium/Albuterol Neb 3 ML IH SCH ×6 (03:51→23:02)
[2018-09-15] MEDS: Artificial Tears SOLN 15 ML BOTTLE BOTH EYES SCH ×6 (03:52→23:46)
[2018-09-15] MEDS: Insulin LISPRO 300 UNITS/3 ML VIAL SQ SCH ×6 (03:52→23:46)
[2018-09-15 04:34] LABS: ABG Base Excess 4 mEq/L (-2 to 3); ABG HCO3 30 mEq/L (21-27); ABG Oxygen Saturation 88 % (95-98); ABG PCO2 53 mmHg (35-45); ABG PH 7.36 pH Units (7.32-7.45); ABG PO2 58 mmHg (85-104); ABG TCO2 32 mEq/L (20-26); Blood Gas Modality ASSIST CONTROL; Blood Gas PEEP 8 cm H2O; Blood Gas VT 500 cc
[2018-09-15] MEDS: Piperacillin/Tazobactam 3.375 GM in 0.9 % Sodium Chloride Mini Bag 100 ML IVPB SCH ×3 (05:52→21:26)
[2018-09-15] MEDS: Pantoprazole 40 MG VIAL IVP SCH (05:52)
[2018-09-15] MEDS: MethylPREDNISolone 40 MG/ML VIAL IVP SCH ×3 (07:49→23:46)
[2018-09-15] MEDS: Docusate Oral Soln 100 MG/10 ML UDC GTUBE SCH ×2 (07:49→21:28)
[2018-09-15] MEDS: Aspirin 81 MG TAB.CHEW PO SCH (07:49)
[2018-09-15] MEDS: Chlorhexidine Rinse 15 ML MOUTHWASH MM SCH ×2 (07:49→21:28)
[2018-09-15] MEDS: Budesonide/Formoterol 160/4.5 1 PUFF INH IH SCH ×2 (07:51→19:30)
[2018-09-15 07:54] LABS: Basophils % 0.2 %; Hemoglobin 9.1 g/dL (11.5-15.4); Segmented Neutrophils % 81.4 %
[2018-09-15 07:56] LABS: Hematocrit 31.6 % (35.3-44.9); Immature Granulocytes % 3.7 % (0-4); Immature Platelets 10.4 % (1.1-6.1); Lymphocytes # 0.8 K/mcL (0.6-4.6); Lymphocytes % 5.5 %; Mean Corpuscular HGB Conc 28.8 g/dL (31.6-35.5); Mean Corpuscular Hemoglobin 20.8 pg (28.0-33.3); Mean Corpuscular Volume 72.1 fL (83.0-100.0); Monocytes # 1.3 K/mcL (0.0-1.3); Monocytes % 9.2 %; Neutrophils # 11.8 K/mcL (1.6-8.9); Nucleated Red Blood Cells 1.9 /100 WBC (0); Platelet Count 265 K/mcL (140-400); Red Blood Count 4.38 M/mcL (3.82-4.97); Red Cell Distribution Width 18.6 % (11.5-14.5); White Blood Count 14.5 K/mcL (4.3-11.1)
[2018-09-15 08:11] LABS: Hypochromasia Present (Not Present)
--- NOTE | 2018-09-15 08:12 | Pulmonology Progress Note ---
<Aurelio Cole - Last Filed: 09/15/18 15:13> Date of Encounter: 09/15/18 Time of Encounter: 08:22 Assessment and Plan (1) Acute respiratory failure with hypoxia Current Visit: Yes Status: Acute - On 09/11/18, patient developed worsening respiratory distress with accessory muscle use and required intubation - Etiology is unknown at this time; likely secondary to pneumonia and adenovirus - Vent settings: Ventilator respiratory rate 12, TV 500, FiO2 60%, PEEP 8 Plan: - Continue antibiotic therapy with vancomycin and Zosyn for pneumonia - Solu-Medrol 40 mg IV - Continue propofol and fentayl for sedation - Due to persistent fevers and rising white count despite broad-spectrum antibiotic therapy, we will obtain CT scan of the chest, abdomen, and pelvis to rule out any additional infectious process not seen on previous imaging (2) RLL pneumonia Current Visit: Yes Status: Acute As demonstrated on imaging studies: - CXR 09/08: Acute RLL PNA - CT chest 09/10: RML PNA, trace reactive R pleural effusion, small RUL pulmonary nodules - CXR 09/11: Progressive airspace disease compared to prior study - CXR 09/13: Increasing airspace consolidation in RML and RLL - CXR 09/14: No interval change in R pleural effusion and R-sided airspace opacity - Causative organism is unknown at this time - Respiratory infection panel (+) for adenovirus - Initially received Rocephin for 5 days; antibiotic coverage broadened to vancomycin and Zosyn after patient developed recurrent fevers Plan: - Blood cultures from 09/12 are currently pending; will follow cultures and tailor antibiotic therapy as appropriate - Continue IV vancomycin and Zosyn; (Day 4 of both) - Continue contact precautions - Solu-Medrol 40 mg - Obtain imaging of chest and abdomen as noted above Qualifiers: Pneumonia type: due to unspecified organism Qualified Code(s): J18.1 - Lobar pneumonia, unspecified organism (3) NSTEMI (non-ST elevated myocardial infarction) Current Visit: Yes Status: Acute - Initial troponin levels drawn on 09/09 were <0.03 - Troponin levels drawn on 09/12: 10.43, 13.64, 19.07, 18.65 - Patient was started on heparin drip and cardiology was consulted - TTE on 09/13/18: Ejection fraction 25-30%, severe global and segmental LV systolic dysfunction, mild LV diastolic dysfunction, mild mitral and tricuspid regurgitation - Cardiology is following; plan was initially to do LHC, but are holding off due to findings consistent with Takotsubo cardiomyopathy Plan: - Cardiology recommended starting patient on a low-dose beta merlyn - Would appreciate any further recommendations - Continue heparin drip (4) Fever Current Visit: Yes Status: Acute - Patient has had elevated temperature since 09/11 - Temperature at initially decreased after ice bath earlier in her stay - MAXIMUM TEMPERATURE in the last 24 hours has been 103.3 - Plan as above Qualifiers: Qualified Code(s): R50.9 - Fever, unspecified (5) HFrEF (heart failure with reduced ejection fraction) Current Visit: Yes Status: Acute - As demonstrated on echocardiogram - Cardiology following Qualifiers: Qualified Code(s): I50.20 - Unspecified systolic (congestive) heart failure (6) COPD (chronic obstructive pulmonary disease) Current Visit: Yes Status: Chronic - Known history of COPD in the setting of acute respiratory failure - Plan as above Qualifiers: COPD type: COPD with acute exacerbation Qualified Code(s): J44.1 - Chronic obstructive pulmonary disease with (acute) exacerbation (7) Leukocytosis Current Visit: Yes Status: Acute - Patient has had an increasing white blood cell count with left shift since yesterday - This morning, patients white count is 14.5 - Likely multifactorial in the setting of pneumonia and IV steroids - Currently on vancomycin and Zosyn - Obtain imaging of chest, abdomen, and pelvis to rule out ultimate source of infection as documented above - Repeat CBC in the a.m. Qualifiers: Qualified Code(s): D72.829 - Elevated white blood cell count, unspecified (8) Hypertension Current Visit: Yes Status: Chronic - PRN Lopressor Qualifiers: Hypertension type: essential hypertension Qualified Code(s): I10 - Essential (primary) hypertension (9) DVT prophylaxis Current Visit: Yes Status: Acute - SubQ heparin Subjective Principal diagnosis: NSTEMI, CMP, respiratory failure Interval history: Patient seen and examined at bedside; demonstrated and sedated. Diffuse rales are present on physical examination. Does not appear to be in any acute distress. Patient has continued to have intermittent fevers despite being on vancomycin and Zosyn. We are currently treating for a right lower lobe pneumonia as demonstrated on previous imaging. This morning, patients temperature was 101.1. Plan is to obtain a CT scan of the chest, abdomen, and pelvis, to rule out the possibility of worsening pneumonia or intra-abdominal infection. Blood cultures are still pending 2. Patients glucose levels have been running high this morning; as a result we will add a basal insulin today. Objective PUL Vital signs: Last Vital Signs Temp 98.7 F 09/15/18 04:00 Pulse 119 09/15/18 07:00 Resp 19 09/15/18 07:00 BP 129/90 09/15/18 07:00 Pulse Ox 97 09/15/18 07:00 General: Intubated and sedated; nonresponsive; no signs of acute agitation or distress Head: Dry mucous membranes noted; endotracheal tube in place Neck: No deformities noted Respiratory: Diminished breath sounds bilaterally; rales present bilaterally, right greater than left Cardiovascular: RRR, +S1/+S2; no murmurs, rubs, gallops Abdomen: Soft, nontender Extremities: No clubbing, edema, or cyanosis Neurological: Obtunded Psychiatric: Unable to assess Skin: Pale appearing Ventilator Settings Ventilator Settings: Ventilator Settings, Last 8 Hours Ventilator Tidal Volume 500 Setting Ventilator Tidal Volume 500 Setting Ventilator Tidal Volume 500 Setting Ventilator Tidal Volume 500 Setting Ventilator Tidal Volume 500 Setting Ventilator Tidal Volume 500 Setting Ventilator Tidal Volume 500 Setting Ventilator Tidal Volume 500 Setting Ventilator Tidal Volume 500 Setting Ventilator Tidal Volume 500 Setting Ventilator Tidal Volume 500 Setting Ventilator Respiratory Rate 12 Setting Ventilator Respiratory Rate 12 Setting Ventilator Respiratory Rate 12 Setting Ventilator Respiratory Rate 12 Setting Ventilator Respiratory Rate 12 Setting Ventilator Respiratory Rate 12 Setting Ventilator Respiratory Rate 12 Setting Ventilator Respiratory Rate 12 Setting Ventilator Respiratory Rate 12 Setting Ventilator Respiratory Rate 12 Setting Ventilator Respiratory Rate 12 Setting Actual Respiratory Rate 19 Actual Respiratory Rate 19 Actual Respiratory Rate 18 Actual Respiratory Rate 18 Actual Respiratory Rate 17 Actual Respiratory Rate 17 Actual Respiratory Rate 19 Actual Respiratory Rate 18 Actual Respiratory Rate 19 Actual Respiratory Rate 18 Positive End Expiratory 8 Pressure Positive End Expiratory 8 Pressure Positive End Expiratory 8 Pressure Positive End Expiratory 8 Pressure Positive End Expiratory 8 Pressure Positive End Expiratory 8 Pressure Positive End Expiratory 8 Pressure Positive End Expiratory 8 Pressure Positive End Expiratory 8 Pressure Positive End Expiratory 8 Pressure Positive End Expiratory 8 Pressure Peak Inspiratory Airway 24 Pressure Peak Inspiratory Airway 25 Pressure Peak Inspiratory Airway 24 Pressure Peak Inspiratory Airway 23 Pressure Peak Inspiratory Airway 24 Pressure Peak Inspiratory Airway 25 Pressure Peak Inspiratory Airway 21 Pressure Peak Inspiratory Airway 20 Pressure Peak Inspiratory Airway 18 Pressure Peak Inspiratory Airway 17 Pressure Results - Laboratory Findings CBC and BMP: 09/15/18 07:26 09/14/18 03:54 ABG ABG pH 7.36 pH Units (7.32-7.45) 09/15/18 04:30 ABG pCO2 53 mmHg (35-45) H 09/15/18 04:30 ABG pO2 58 mmHg (85-104) L 09/15/18 04:30 ABG O2 Saturation 88 % (95-98) L 09/15/18 04:30 PT/INR, D-dimer PT 12.2 Seconds (9.4-12.1) H 09/12/18 16:53 Abnormal lab findings: Abnormal lab results WBC 14.5 K/mcL (4.3-11.1) H 09/15/18 07:26 Hgb 9.1 g/dL (11.5-15.4) L 09/15/18 07:26 Hct 31.6 % (35.3-44.9) L 09/15/18 07:26 MCV 72.1 fL (83.0-100.0) L 09/15/18 07:26 MCH 20.8 pg (28.0-33.3) L 09/15/18 07:26 MCHC 28.8 g/dL (31.6-35.5) L 09/15/18 07:26 RDW 18.6 % (11.5-14.5) H 09/15/18 07:26 Plt Count 125 K/mcL (140-400) L 09/13/18 01:24 Immature Gran % 4.3 % (0-4) H 09/11/18 04:10 8.0 % (0-4) H 09/10/18 05:39 11.8 K/mcL (1.6-8.9) H 09/15/18 07:26 0.4 K/mcL (0.6-4.6) L 09/09/18 01:49 Nucleated RBCs/100 WBC 1.9 /100 WBC (0) H 09/15/18 07:26 Slight Decrease (Normal) L 09/13/18 01:24 Present (Not Present) A 09/09/18 01:49 Immature Plt Fraction 10.4 % (1.1-6.1) H 09/15/18 07:26 1+ (Not Present) A 09/11/18 04:10 Present (Not Present) A 09/15/18 07:26 1+ (Not Present) A 09/10/18 05:39 1+ (Not Present) A 09/13/18 01:24 Present (Not Present) A 09/13/18 01:24 PT 12.2 Seconds (9.4-12.1) H 09/12/18 16:53 Heparin Anti-Xa, Unfract 0.28 IU/mL (0.30-0.70) L 09/14/18 19:15 ABG pH 7.51 pH Units (7.32-7.45) H 09/14/18 04:40 ABG pCO2 53 mmHg (35-45) H 09/15/18 04:30 ABG pO2 58 mmHg (85-104) L 09/15/18 04:30 ABG HCO3 30 mEq/L (21-27) H 09/15/18 04:30 ABG Total CO2 32 mEq/L (20-26) H 09/15/18 04:30 ABG O2 Saturation 88 % (95-98) L 09/15/18 04:30 ABG Base Excess 4 mEq/L (-2 to 3) H 09/15/18 04:30 Sodium 133 mEq/L (136-145) L 09/08/18 17:08 Potassium 3.1 mEq/L (3.5-5.1) L 09/08/18 17:08 Chloride 96 mEq/L (98-107) L 09/08/18 17:08 Carbon Dioxide 22 mEq/L (23-29) L 09/09/18 14:05 BUN 49 mg/dL (8-23) H 09/14/18 03:54 Est GFR (Non-Af Amer) 54 (> 60) L 09/13/18 01:24 58 (6-26) H 09/14/18 03:54 Glucose 264 mg/dL (70-105) H 09/14/18 03:54 POC Glucose 281 mg/dL (70-99) H 09/14/18 23:15 322 (280-300) H 09/14/18 03:54 Calcium 8.5 mg/dL (8.6-10.3) L 09/13/18 01:24 0.2 mg/dL (0.3-1.0) L 09/09/18 14:05 18.65 ng/mL (< 0.04) H* 09/13/18 01:24 6.1 g/dL (6.4-8.9) L 09/09/18 14:05 6 Units/L (11-82) L 09/08/18 17:08 1.27 ng/mL (0.00-0.15) H 09/12/18 15:45 Ur Specific [place] < 1.005 (1.010-1.025) L 09/08/18 21:01 Kaser 0.3 mEq/L (0.6-1.2) L 09/09/18 01:49 DETECTED (Not Detect) A 09/10/18 09:40 - Microbiology Findings Microbiology Findings: Microbiology, Last 48 Hours 09/14/18 12:07 Blood Culture - Preliminary Peripheral Venipuncture Culture is incubating and being continuously monitored for growth. Final report to follow. 09/14/18 12:00 Blood Culture - Preliminary Peripheral Venipuncture Culture is incubating and being continuously monitored for growth. Final report to follow. 09/08/18 17:08 Blood Culture - Final Peripheral Venipuncture No growth. Final report. 09/08/18 17:36 Blood Culture - Final Peripheral Venipuncture No growth. Final report. - Clinical Findings Intake & Output: Intake & Output 09/14/18 09/15/18 09/15/18 23:59 07:59 15:59 Intake Total 900.4 / 2015.5 990.2 / 990.2 Output Total 300 / 1400 550 / 550 Balance 600.4 / 615.5 440.2 / 440.2 Weight 70.6 kg Consult Discharge Plan - Plan Referrals: Sayda Villagran MD [Primary Care Provider] - <Nely Cabral - Last Filed: 09/20/18 06:30> Date of Encounter: 09/15/18 Assessment and Plan (1) ARDS (adult respiratory distress syndrome) Current Visit: Yes Status: Acute (2) COPD (chronic obstructive pulmonary disease) Current Visit: Yes Status: Chronic Qualifiers: COPD type: COPD with acute exacerbation Qualified Code(s): J44.1 - Chronic obstructive pulmonary disease with (acute) exacerbation (3) Acute respiratory failure with hypoxia Current Visit: Yes Status: Acute Objective PUL Vital signs: Last Vital Signs Temp 100.0 F H 09/15/18 15:49 Pulse 86 09/15/18 18:00 Resp 14 09/15/18 18:00 BP 121/84 09/15/18 18:00 Pulse Ox 98 09/15/18 18:00 Ventilator Settings Ventilator Settings: Ventilator Settings, Last 8 Hours Ventilator Tidal Volume 500 Setting Ventilator Tidal Volume 500 Setting Ventilator Tidal Volume 500 Setting Ventilator Tidal Volume 500 Setting Ventilator Tidal Volume 500 Setting Ventilator Tidal Volume 500 Setting Ventilator Tidal Volume 500 Setting Ventilator Tidal Volume 500 Setting Ventilator Tidal Volume 500 Setting Ventilator Tidal Volume 500 Setting Ventilator Tidal Volume 500 Setting Ventilator Tidal Volume 500 Setting Ventilator Respiratory Rate 12 Setting Ventilator Respiratory Rate 12 Setting Ventilator Respiratory Rate 12 Setting Ventilator Respiratory Rate 12 Setting Ventilator Respiratory Rate 12 Setting Ventilator Respiratory Rate 12 Setting Ventilator Respiratory Rate 12 Setting Ventilator Respiratory Rate 12 Setting Ventilator Respiratory Rate 12 Setting Ventilator Respiratory Rate 12 Setting Ventilator Respiratory Rate 12 Setting Ventilator Respiratory Rate 12 Setting Actual Respiratory Rate 14 Actual Respiratory Rate 14 Actual Respiratory Rate 14 Actual Respiratory Rate 16 Actual Respiratory Rate 15 Actual Respiratory Rate 16 Actual Respiratory Rate 16 Actual Respiratory Rate 15 Actual Respiratory Rate 16 Actual Respiratory Rate 16 Actual Respiratory Rate 17 Actual Respiratory Rate 17 Positive End Expiratory 8 Pressure Positive End Expiratory 8 Pressure Positive End Expiratory 8 Pressure Positive End Expiratory 8 Pressure Positive End Expiratory 8 Pressure Positive End Expiratory 8 Pressure Positive End Expiratory 8 Pressure Positive End Expiratory 8 Pressure Positive End Expiratory 8 Pressure Positive End Expiratory 8 Pressure Positive End Expiratory 8 Pressure Positive End Expiratory 8 Pressure Peak Inspiratory Airway 19 Pressure Peak Inspiratory Airway 19 Pressure Peak Inspiratory Airway 19 Pressure Peak Inspiratory Airway 19 Pressure Peak Inspiratory Airway 22 Pressure Peak Inspiratory Airway 19 Pressure Peak Inspiratory Airway 19 Pressure Peak Inspiratory Airway 19 Pressure Peak Inspiratory Airway 20 Pressure Peak Inspiratory Airway 21 Pressure Peak Inspiratory Airway 22 Pressure Peak Inspiratory Airway 28 Pressure Results - Laboratory Findings CBC and BMP: 09/20/18 04:21 09/20/18 04:21 ABG ABG pH 7.36 pH Units (7.32-7.45) 09/15/18 04:30 ABG pCO2 53 mmHg (35-45) H 09/15/18 04:30 ABG pO2 58 mmHg (85-104) L 09/15/18 04:30 ABG O2 Saturation 88 % (95-98) L 09/15/18 04:30 PT/INR, D-dimer PT 12.2 Seconds (9.4-12.1) H 09/12/18 16:53 Abnormal lab findings: Abnormal lab results WBC 14.5 K/mcL (4.3-11.1) H 09/15/18 07:26 Hgb 9.1 g/dL (11.5-15.4) L 09/15/18 07:26 Hct 31.6 % (35.3-44.9) L 09/15/18 07:26 MCV 72.1 fL (83.0-100.0) L 09/15/18 07:26 MCH 20.8 pg (28.0-33.3) L 09/15/18 07:26 MCHC 28.8 g/dL (31.6-35.5) L 09/15/18 07:26 RDW 18.6 % (11.5-14.5) H 09/15/18 07:26 Plt Count 125 K/mcL (140-400) L 09/13/18 01:24 Immature Gran % 4.3 % (0-4) H 09/11/18 04:10 8.0 % (0-4) H 09/10/18 05:39 11.8 K/mcL (1.6-8.9) H 09/15/18 07:26 0.4 K/mcL (0.6-4.6) L 09/09/18 01:49 Nucleated RBCs/100 WBC 1.9 /100 WBC (0) H 09/15/18 07:26 Slight Decrease (Normal) L 09/13/18 01:24 Present (Not Present) A 09/09/18 01:49 Immature Plt Fraction 10.4 % (1.1-6.1) H 09/15/18 07:26 1+ (Not Present) A 09/11/18 04:10 Present (Not Present) A 09/15/18 07:26 1+ (Not Present) A 09/10/18 05:39 1+ (Not Present) A 09/13/18 01:24 Present (Not Present) A 09/13/18 01:24 PT 12.2 Seconds (9.4-12.1) H 09/12/18 16:53 Heparin Anti-Xa, Unfract 0.28 IU/mL (0.30-0.70) L 09/14/18 19:15 ABG pH 7.51 pH Units (7.32-7.45) H 09/14/18 04:40 ABG pCO2 53 mmHg (35-45) H 09/15/18 04:30 ABG pO2 58 mmHg (85-104) L 09/15/18 04:30 ABG HCO3 30 mEq/L (21-27) H 09/15/18 04:30 ABG Total CO2 32 mEq/L (20-26) H 09/15/18 04:30 ABG O2 Saturation 88 % (95-98) L 09/15/18 04:30 ABG Base Excess 4 mEq/L (-2 to 3) H 09/15/18 04:30 Sodium 151 mEq/L (136-145) H 09/15/18 16:09 Potassium 3.1 mEq/L (3.5-5.1) L 09/08/18 17:08 Chloride 116 mEq/L (98-107) H 09/15/18 16:09 Carbon Dioxide 31 mEq/L (23-29) H 09/15/18 16:09 BUN 58 mg/dL (8-23) H 09/15/18 16:09 Est GFR (Non-Af Amer) 54 (> 60) L 09/13/18 01:24 67 (6-26) H 09/15/18 16:09 Glucose 259 mg/dL (70-105) H 09/15/18 16:09 POC Glucose 281 mg/dL (70-99) H 09/14/18 23:15 337 (280-300) H 09/15/18 16:09 Calcium 8.5 mg/dL (8.6-10.3) L 09/13/18 01:24 0.2 mg/dL (0.3-1.0) L 09/09/18 14:05 AST 289 Units/L (13-39) H 09/15/18 16:09 ALT 404 Units/L (7-52) H 09/15/18 16:09 18.65 ng/mL (< 0.04) H* 09/13/18 01:24 5.8 g/dL (6.4-8.9) L 09/15/18 16:09 2.9 g/dL (3.5-5.7) L 09/15/18 16:09 1.0 (1.1-2.2) L 09/15/18 16:09 6 Units/L (11-82) L 09/08/18 17:08 1.27 ng/mL (0.00-0.15) H 09/12/18 15:45 Ur Specific [place] < 1.005 (1.010-1.025) L 09/08/18 21:01 Kaser 0.3 mEq/L (0.6-1.2) L 09/09/18 01:49 DETECTED (Not Detect) A 09/10/18 09:40 - Microbiology Findings Microbiology Findings: Microbiology, Last 48 Hours 09/14/18 12:07 Blood Culture - Preliminary Peripheral Venipuncture Culture is incubating and being continuously monitored for growth. Final report to follow. 09/14/18 12:00 Blood Culture - Preliminary Peripheral Venipuncture Culture is incubating and being continuously monitored for growth. Final report to follow. 09/08/18 17:08 Blood Culture - Final Peripheral Venipuncture No growth. Final report. 09/08/18 17:36 Blood Culture - Final Peripheral Venipuncture No growth. Final report. - Clinical Findings Intake & Output: Intake & Output 09/15/18 09/15/18 09/15/18 07:59 15:59 23:59 Intake Total 990.2 / 2009.6 610.4 / 2010.6 410 / 2010.6 Output Total 550 / 1375 825 / 1375 Balance 440.2 / 635.6 -214.6 / 635.6 410 / 635.6 Weight 70.6 kg - Attending Attestation I examined this patient and my medical decision-making was reviewed with the Resident Physician. I agree with the documented findings, disposition and treatment plan as described except to the extent set forth below. Patient seen and examined. Labs, radiology, chart personally reviewed. 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 Will continue with lowering sedation as long as there is no evidence with vent dysynchrony. Pulmonary: Acceptable oxygenation and ventilation and not tolerating her SBT. I suspect with her underlying COPD, this situation is more complicated now and trying to minimize PEEPi with vent changing and trying different modality on the vent. Changing it from VC+ to VC didn't make significant changes. Shorten Ti and reviewed ABG. Cardiovascular: relatively stable GI: Nutrition per dietary and GI prophylaxis per routine Heme: DVT prophylaxis per routine ID: Continue antibiotics and plan to de-escalation and patient continue to have fever. Will check CT chest, abdomen and pelvis and consider ID consultation. Renal; urine out put and renal function reviewed Endorcine: blood glucose is monitored Lines: all lines checked and no evidence of infections Skin: skin care to prevent pressure ulcers per nursing routine care Dispo: ICU and I've updated the family Code: Full. DNR-! Prognosis. Poor I spent 35 min of Critical Care time with this patient. It involved decision making of high complexity to assess, manipulate, and support vital organ system failure and/or to prevent further life threatening deterioration of the patient's condition. The time involved in the performance of separately reportable procedures was not counted toward critical care time.
[2018-09-15] MEDS ORDERED: Insulin DETEMIR 100 UNIT/ML X5UNITS SQ ONE (10:45)
--- NOTE | 2018-09-15 11:03 | Cardiology Progress Note ---
Date of Encounter: 09/15/18 Time of Encounter: 11:01 Assessment and Plan (1) NSTEMI (non-ST elevated myocardial infarction) Current Visit: Yes Status: Acute Troponin elevated up to 19.07 and trending down. Nstemi type I vs type II in the setting of respiratory failure, ARDS, PNA, adeno virus, sepsis. EKG with no acute ST changes. TTE demonstrated severely reduced EF. EF 25-30%. Mild MR and mild TR. Discussed with Dr. Cabrera , Possible takostubo CMP, emergent LHC not indicated. Plan to assess patient once respiratory status improves and consider LHC. At this point she has poor prognosis. Now DNRCC per family request. Noted to have sinus tachycardia at times. Telemetry review does not show afib. Occasional runs SVT. Tachycardia likely due to sepsis, respiratory status. On IV metoprolol. Suspect HR will improve once respiratory status and sepsis improve. Continue heparin gtt. Change to DVT prophylaxis tomorrow. Continue asa and bb. Add statin. Cardiology will sign off for now. Re-consult when respiratory status improves to re-evaluate for LHC. (2) ARDS (adult respiratory distress syndrome) Current Visit: Yes Status: Acute Management per primary team. Discussion w patient/family: The assessment and plan as outlined above was discussed with the patient and/or family members who expressed understanding and agreement. All questions were answered. Thank you for involving us in the care of your patient. Please call with any questions. Subjective Principal diagnosis: NSTEMI, CMP, respiratory failure Interval history: Ms. Grullon remains intubated. Sedated on my exam. Patient weaned of sedation and did not tolerate. Noted to have sinus tachycardia. Agonal breathing improved but continues to have labored breathing over full vent support. Also has fever. Pt now DNRCCA. Objective Vital Signs, Last 4 Hours Temp Pulse Resp BP Pulse Ox 09/15/18 10:00 102 18 122/90 98 09/15/18 09:55 17 123/87 98 09/15/18 09:00 100 18 123/87 98 09/15/18 08:39 101.1 F H 09/15/18 08:00 101.0 F H 102 18 120/86 98 09/15/18 07:51 17 112/81 97 HEENT: Atraumatic, Normocephaly, Mucus Membranes Moist Neck: No JVD, Normal carotid pulses Cardiac: Reg Rate and Rhythm, Normal S1 and S2, No Murmur Lungs: Other (Diminished on vent support) Neuro: Other (sedated) Abdomen: Soft Skin: No rashes noted on visualized skin Musculoskeletal: No Chest Wall Tenderness Extremities: No Clubbing, No Cyanosis, No Edema, Normal Pulses Results 09/15/18 07:26 09/14/18 03:54 Lab Results 09/15/18 07:26 WBC 14.5 H Hgb 9.1 L Hct 31.6 L Plt Count 265 - Imaging and Cardiology Echo: report reviewed - EKG Interpretation EKG results cardiology: personally reviewed Consult Discharge Plan - Plan Referrals: Sayda Villagran MD [Primary Care Provider] -
[2018-09-15] MEDS: FentaNYL (PF) 1,000 MCG in 0.9 % Sodium Chloride 80 ML IVC SCH (11:13)
[2018-09-15 16:41] LABS: Alanine Aminotransferase 404 Units/L (7-52); Albumin 2.9 g/dL (3.5-5.7); Alkaline Phosphatase 40 Units/L (34-104); Aspartate Amino Transferase 289 Units/L (13-39); BUN/Creatinine Ratio 67 (6-26); Bilirubin,Direct 0.1 mg/dL (0.0-0.2); Bilirubin,Indirect 0.3 mg/dL (0.0-1.2); Bilirubin,Total 0.4 mg/dL (0.3-1.0); Blood Urea Nitrogen 58 mg/dL (8-23); Calcium 9.7 mg/dL (8.6-10.3); Carbon Dioxide 31 mEq/L (23-29); Chloride 116 mEq/L (98-107); Globulin 2.9 g/dL (2.4-3.5); Glucose 259 mg/dL (70-105); Osmolality,Calculated 337 (280-300); Potassium 4.8 mEq/L (3.5-5.1); Sodium 151 mEq/L (136-145); Total Protein 5.8 g/dL (6.4-8.9); eGFR For African Americans > 60 (> 60); eGFR For Non-African Americans > 60 (> 60)
[2018-09-15] MEDS: Doxycycline 100 MG in 0.9 % Sodium Chloride Mini Bag 100 ML IVPB SCH (18:17)
[2018-09-15] MEDS: D5% in Water 1,000 ML IVC SCH (18:41)
--- NOTE | 2018-09-15 19:42 | Anesthesia Progress Note ---
Date of Encounter: 09/11/18 Time of Encounter: 03:23 Anesthesia Note - Note Note: 09/11/2018 0323 Called to patient bedside stat for intubation of patient. Patient noted to be unconscious upon arrival. Unknown previous intubation attempts prior to arrival. Heme noted in mouth and airway upon laryngoscopy. ETT size 7.5 placed 1st attempt without difficulty. Ett secured 21cm at the lip. VSS upon passing care to dr. Maddox.
[2018-09-15 20:44] LABS: BUN/Creatinine Ratio 70 (6-26); Blood Urea Nitrogen 57 mg/dL (8-23); Calcium 10.2 mg/dL (8.6-10.3); Carbon Dioxide 30 mEq/L (23-29); Chloride 115 mEq/L (98-107); Glucose 252 mg/dL (70-105); Osmolality,Calculated 338 (280-300); Sodium 152 mEq/L (136-145); eGFR For African Americans > 60 (> 60); eGFR For Non-African Americans > 60 (> 60)
[2018-09-15] MEDS ORDERED: Insulin DETEMIR 100 UNIT/ML X5UNITS SQ SCH (21:00)
[2018-09-15] MEDS: Heparin 25,000 UNIT/250 ML D5W 25,000 UNIT/250 ML IV.SOLN IVC SCH (21:26)
[2018-09-16] MEDS: FentaNYL (PF) 1,000 MCG in 0.9 % Sodium Chloride 80 ML IVC SCH ×3 (00:46→23:20)
[2018-09-16] MEDS: *HR* Metoprolol 5 MG/5 ML VIAL IVP SCH ×4 (02:18→21:12)
[2018-09-16] MEDS: Ipratropium/Albuterol Neb 3 ML IH SCH ×6 (03:01→23:07)
[2018-09-16] MEDS: Insulin LISPRO 300 UNITS/3 ML VIAL SQ SCH ×6 (03:22→23:20)
[2018-09-16] MEDS: Artificial Tears SOLN 15 ML BOTTLE BOTH EYES SCH ×6 (03:22→23:21)
[2018-09-16 03:48] LABS: Hemoglobin 8.4 g/dL (11.5-15.4); Lymphocytes % 3.7 %
[2018-09-16 03:49] LABS: Basophils % 0.2 %; Hematocrit 30.5 % (35.3-44.9); Immature Granulocytes % 3.3 % (0-4); Lymphocytes # 0.6 K/mcL (0.6-4.6); Mean Corpuscular HGB Conc 27.5 g/dL (31.6-35.5); Mean Corpuscular Hemoglobin 20.5 pg (28.0-33.3); Mean Corpuscular Volume 74.4 fL (83.0-100.0); Mean Platelet Volume 12.6 fL (9.4-12.4); Neutrophils # 14.9 K/mcL (1.6-8.9); Platelet Count 281 K/mcL (140-400); Red Cell Distribution Width 18.8 % (11.5-14.5); Segmented Neutrophils % 86.8 %; White Blood Count 17.2 K/mcL (4.3-11.1)
[2018-09-16 03:50] LABS: BUN/Creatinine Ratio 81 (6-26); Blood Urea Nitrogen 54 mg/dL (8-23); Calcium 9.1 mg/dL (8.6-10.3); Carbon Dioxide 28 mEq/L (23-29); Chloride 117 mEq/L (98-107); Glucose 344 mg/dL (70-105); Osmolality,Calculated 340 (280-300); Potassium 4.2 mEq/L (3.5-5.1); Sodium 151 mEq/L (136-145); eGFR For African Americans > 60 (> 60); eGFR For Non-African Americans > 60 (> 60)
[2018-09-16 04:02] LABS: ABG Base Excess 5 mEq/L (-2 to 3); ABG HCO3 31 mEq/L (21-27); ABG Oxygen Saturation 92 % (95-98); ABG PCO2 55 mmHg (35-45); ABG PH 7.36 pH Units (7.32-7.45); ABG PO2 67 mmHg (85-104); ABG TCO2 33 mEq/L (20-26); Blood Gas Modality VC; Blood Gas PEEP 8 cm H2O; Blood Gas VT 500 cc
[2018-09-16 05:07] LABS: Anisocytosis 1+ (Not Present); Microcytosis Present (Not Present); Platelet Estimate Normal (Normal)
[2018-09-16 05:08] LABS: Hypochromasia Present (Not Present); Polychromasia 1+ (Not Present)
[2018-09-16] MEDS: Piperacillin/Tazobactam 3.375 GM in 0.9 % Sodium Chloride Mini Bag 100 ML IVPB SCH ×3 (05:55→20:53)
[2018-09-16] MEDS: Doxycycline 100 MG in 0.9 % Sodium Chloride Mini Bag 100 ML IVPB SCH ×2 (05:55→17:22)
[2018-09-16] MEDS: Pantoprazole 40 MG VIAL IVP SCH (06:56)
[2018-09-16] MEDS: Budesonide/Formoterol 160/4.5 1 PUFF INH IH SCH ×2 (07:15→19:39)
[2018-09-16] MEDS: Chlorhexidine Rinse 15 ML MOUTHWASH MM SCH ×2 (09:06→20:54)
[2018-09-16] MEDS: Aspirin 81 MG TAB.CHEW PO SCH (09:06)
[2018-09-16] MEDS: Furosemide 20 MG/2 ML VIAL IVP SCH ×2 (09:06→17:19)
[2018-09-16] MEDS: MethylPREDNISolone 40 MG/ML VIAL IVP SCH ×3 (09:06→23:19)
[2018-09-16] MEDS: Docusate Oral Soln 100 MG/10 ML UDC GTUBE SCH ×2 (09:06→20:54)
[2018-09-16] MEDS: Ibuprofen 400 MG TABLET PO PRN (09:11)
--- NOTE | 2018-09-16 10:30 | Pulmonology Progress Note ---
<Starla Colez - Last Filed: 09/16/18 16:41> Date of Encounter: 09/16/18 Time of Encounter: 07:45 Assessment and Plan (1) Acute respiratory failure with hypoxia Current Visit: Yes Status: Acute - On 09/11/18, patient developed worsening respiratory distress with accessory muscle use and required intubation - Etiology is unknown at this time; likely secondary to pneumonia and viral URI caused by adenovirus - Vent settings: Ventilator respiratory rate 12, TV 500, FiO2 60%, PEEP 8 - CT scan of the chest was performed yesterday, which demonstrated a right-sided pleural effusion - Spoke with interventional radiology yesterday, who reviewed the imaging; based on the fact that she is still intubated and sedated, the risks of a diagnostic/therapeutic thoracentesis far outweigh benefits; low suspicion for empyema at this time Plan: - Continue antibiotic therapy with vancomycin and Zosyn for pneumonia - Solu-Medrol 40 mg IV - Continue propofol and fentayl for sedation (2) RLL pneumonia Current Visit: Yes Status: Acute As demonstrated on imaging studies: - CXR 09/08: Acute RLL PNA - CT chest 09/10: RML PNA, trace reactive R pleural effusion, small RUL pulmonary nodules - CXR 09/11: Progressive airspace disease compared to prior study - CXR 09/13: Increasing airspace consolidation in RML and RLL - CXR 09/14: No interval change in R pleural effusion and R-sided airspace opacity - Causative organism unknown at this time; Respiratory infection panel (+) for adenovirus - She was initially treated with Rocephin; antibiotic coverage broadened to vancomycin and Zosyn after patient demonstrated no signs of improvement Plan: - Blood cultures x4 currently pending; will follow cultures and tailor antibiotic therapy as appropriate - Continue IV vancomycin and Zosyn; (Day 5 of both) - Continue contact precautions Qualifiers: Pneumonia type: due to unspecified organism Qualified Code(s): J18.1 - Lobar pneumonia, unspecified organism (3) NSTEMI (non-ST elevated myocardial infarction) Current Visit: Yes Status: Acute - Initial troponin levels drawn on 09/09 were <0.03 - Troponin levels drawn on 09/12: 10.43, 13.64, 19.07, 18.65 - Patient was started on heparin drip and cardiology was consulted - TTE 09/13: EF 25-30%, severe global and segmental LV systolic dysfunction, mild LV diastolic dysfunction, mild mitral and tricuspid regurgitation - Per cardiology, findings suggestive of Takotsubo cardiomyopathy Plan: - Discontinue heparin drip and switch to DVT prophylaxis per the recommendations of cardiology - Continue aspirin and beta merlyn, start statin - Cardiology has signed off; If respiratory status improves and she is successfully extubated, we will re-consult cardiology for possible LHC (4) Tick bite Current Visit: Yes Status: Acute - Patients son contacted us and informed us that patient had been bitten by a tick a few weeks ago - After this tick bite, patient began feeling nauseous and developed malaise with fevers and chills - He stated that the symptoms continued up to the point of admission to the hospital - Spoke with infectious disease yesterday, who recommended treating empirically for tick borne illness if index of suspicion is high - Obtained LFTs on the afternoon of 09/15; AST 289, ALT 404 - Etiology may be Ehrlichiosis, supported by presentation described by son, cyclical fevers, history of tick bite, and elevated LFTs Plan: - Doxycycline 100 mg IV Q12 (day 2) Qualifiers: Qualified Code(s): W57.XXXA - Bitten or stung by nonvenomous insect and other nonvenomous arthropods, initial encounter (5) Fever Current Visit: Yes Status: Acute - Patient has had intermittent fevers since 09/11 - Temperature had initially decreased after ice bath earlier in her stay - Etiology unknown; possibly secondary to tick borne illness, pneumonia - Patient has continued to spike fevers despite being on broad-spectrum antibiotics - As noted above, added doxycycline for possible tickborne illness - TMAX in the last 24 hours was 101.5, slightly improved from yesterdays TMAX of 103.3 Qualifiers: Qualified Code(s): R50.9 - Fever, unspecified (6) Leukocytosis Current Visit: Yes Status: Acute - Patient has leukocytosis at 17.2 with left shift - Etiology is likely multifactorial in the setting of pneumonia and IV Solu- Medrol use Plan: - Continue antibiotics as documented above - Repeat CBC in the a.m. Qualifiers: Qualified Code(s): D72.829 - Elevated white blood cell count, unspecified (7) HFrEF (heart failure with reduced ejection fraction) Current Visit: Yes Status: Acute - As demonstrated on echocardiogram - Cardiology following Qualifiers: Qualified Code(s): I50.20 - Unspecified systolic (congestive) heart failure (8) COPD (chronic obstructive pulmonary disease) Current Visit: Yes Status: Chronic - Known history of COPD in the setting of acute respiratory failure - Plan as above Qualifiers: COPD type: COPD with acute exacerbation Qualified Code(s): J44.1 - Chronic obstructive pulmonary disease with (acute) exacerbation (9) Hypertension Current Visit: Yes Status: Chronic - PRN Lopressor Qualifiers: Hypertension type: essential hypertension Qualified Code(s): I10 - Essential (primary) hypertension (10) DVT prophylaxis Current Visit: Yes Status: Acute - SubQ heparin Subjective Principal diagnosis: NSTEMI, CMP, respiratory failure Interval history: Patient seen and examined at bedside; no agitation or acute distress noted. Currently on propofol and fentanyl for sedation. She continues to spike fevers intermittently, with TMAX of 101.5 in the last 24 hours. Yesterday, patients son called and reported that his mom has been sick a few weeks prior to admission with fever and vomiting and found a tick embedded in her shoulder. He reported that she did not fully recover after this, even up to the point of admission. Spoke about this with ID yesterday, who said that if there is a high index of suspicion, the best option is to treat empirically for tick borne illness. LFTs demonstrated elevated AST (289) and ALT (404). Doxycycline 100 mg IV Q12 started yesterday. Chest CT obtained yesterday to r/o possibility of worsening infection. It demonstrated a R-sided pleural effusion. Spoke with IR, who reviewed the images. Per radiology, pleural effusion does not appear to represent empyema, and a diagnostic thoracentesis at this time remains a high risk given the fact that the patient remains intubated and sedated. She remains on vancomycin and Zosyn, day 5. White count continues to increase. Heparin drip will be discontinued today per the recommendations of cardiology, who ced mmended switching her to DVT prophylaxis. Once patient is successfully extubated, cardiology will be re-consulted for possible LHC. Objective PUL Vital signs: Last Vital Signs Temp 101.5 F H 09/16/18 07:56 Pulse 100 09/16/18 10:00 Resp 20 09/16/18 10:00 BP 107/75 09/16/18 10:00 Pulse Ox 95 09/16/18 10:00 General: Intubated and sedated; nonresponsive; no signs of acute agitation or distress Head: Dry mucous membranes noted; endotracheal tube in place Neck: No deformities noted Respiratory: Diminished breath sounds bilaterally; rales present bilaterally Cardiovascular: RRR, +S1/+S2; no murmurs, rubs, gallops Abdomen: Soft, nontender Extremities: No clubbing, edema, or cyanosis Neurological: Obtunded Psychiatric: Unable to assess Skin: Pale appearing Ventilator Settings Ventilator Settings: Ventilator Settings, Last 8 Hours Ventilator Tidal Volume 500 Setting Ventilator Tidal Volume 500 Setting Ventilator Tidal Volume 500 Setting Ventilator Tidal Volume 500 Setting Ventilator Tidal Volume 500 Setting Ventilator Tidal Volume 500 Setting Ventilator Tidal Volume 500 Setting Ventilator Tidal Volume 500 Setting Ventilator Tidal Volume 500 Setting Ventilator Tidal Volume 500 Setting Ventilator Respiratory Rate 12 Setting Ventilator Respiratory Rate 12 Setting Ventilator Respiratory Rate 12 Setting Ventilator Respiratory Rate 12 Setting Ventilator Respiratory Rate 12 Setting Ventilator Respiratory Rate 12 Setting Ventilator Respiratory Rate 12 Setting Ventilator Respiratory Rate 12 Setting Ventilator Respiratory Rate 12 Setting Ventilator Respiratory Rate 12 Setting Actual Respiratory Rate 19 Actual Respiratory Rate 19 Actual Respiratory Rate 20 Actual Respiratory Rate 21 Actual Respiratory Rate 19 Actual Respiratory Rate 20 Actual Respiratory Rate 19 Actual Respiratory Rate 19 Actual Respiratory Rate 19 Positive End Expiratory 8 Pressure Positive End Expiratory 8 Pressure Positive End Expiratory 8 Pressure Positive End Expiratory 8 Pressure Positive End Expiratory 8 Pressure Positive End Expiratory 8 Pressure Positive End Expiratory 8 Pressure Positive End Expiratory 8 Pressure Positive End Expiratory 8 Pressure Positive End Expiratory 8 Pressure Peak Inspiratory Airway 30 Pressure Peak Inspiratory Airway 30 Pressure Peak Inspiratory Airway 25 Pressure Peak Inspiratory Airway 25 Pressure Peak Inspiratory Airway 24 Pressure Peak Inspiratory Airway 25 Pressure Peak Inspiratory Airway 22 Pressure Peak Inspiratory Airway 20 Pressure Peak Inspiratory Airway 19 Pressure Results - Laboratory Findings CBC and BMP: 09/16/18 13:37 09/16/18 03:07 ABG ABG pH 7.36 pH Units (7.32-7.45) 09/16/18 03:59 ABG pCO2 55 mmHg (35-45) H 09/16/18 03:59 ABG pO2 67 mmHg (85-104) L 09/16/18 03:59 ABG O2 Saturation 92 % (95-98) L 09/16/18 03:59 PT/INR, D-dimer PT 12.2 Seconds (9.4-12.1) H 09/12/18 16:53 Abnormal lab findings: Abnormal lab results WBC 17.2 K/mcL (4.3-11.1) H 09/16/18 03:07 Hgb 8.4 g/dL (11.5-15.4) L 09/16/18 03:07 Hct 30.5 % (35.3-44.9) L 09/16/18 03:07 MCV 74.4 fL (83.0-100.0) L 09/16/18 03:07 MCH 20.5 pg (28.0-33.3) L 09/16/18 03:07 MCHC 27.5 g/dL (31.6-35.5) L 09/16/18 03:07 RDW 18.8 % (11.5-14.5) H 09/16/18 03:07 Plt Count 125 K/mcL (140-400) L 09/13/18 01:24 MPV 12.6 fL (9.4-12.4) H 09/16/18 03:07 Immature Gran % 4.3 % (0-4) H 09/11/18 04:10 8.0 % (0-4) H 09/10/18 05:39 14.9 K/mcL (1.6-8.9) H 09/16/18 03:07 0.4 K/mcL (0.6-4.6) L 09/09/18 01:49 Nucleated RBCs/100 WBC 2.0 /100 WBC (0) H 09/16/18 03:07 Slight Decrease (Normal) L 09/13/18 01:24 Present (Not Present) A 09/09/18 01:49 Immature Plt Fraction 10.4 % (1.1-6.1) H 09/15/18 07:26 1+ (Not Present) A 09/16/18 03:07 Present (Not Present) A 09/16/18 03:07 1+ (Not Present) A 09/10/18 05:39 1+ (Not Present) A 09/16/18 03:07 Present (Not Present) A 09/16/18 03:07 PT 12.2 Seconds (9.4-12.1) H 09/12/18 16:53 Heparin Anti-Xa, Unfract 0.28 IU/mL (0.30-0.70) L 09/14/18 19:15 ABG pH 7.51 pH Units (7.32-7.45) H 09/14/18 04:40 ABG pCO2 55 mmHg (35-45) H 09/16/18 03:59 ABG pO2 67 mmHg (85-104) L 09/16/18 03:59 ABG HCO3 31 mEq/L (21-27) H 09/16/18 03:59 ABG Total CO2 33 mEq/L (20-26) H 09/16/18 03:59 ABG O2 Saturation 92 % (95-98) L 09/16/18 03:59 ABG Base Excess 5 mEq/L (-2 to 3) H 09/16/18 03:59 Sodium 151 mEq/L (136-145) H 09/16/18 03:07 Potassium 3.1 mEq/L (3.5-5.1) L 09/08/18 17:08 Chloride 117 mEq/L (98-107) H 09/16/18 03:07 Carbon Dioxide 30 mEq/L (23-29) H 09/15/18 20:19 BUN 54 mg/dL (8-23) H 09/16/18 03:07 Est GFR (Non-Af Amer) 54 (> 60) L 09/13/18 01:24 81 (6-26) H 09/16/18 03:07 Glucose 344 mg/dL (70-105) H 09/16/18 03:07 POC Glucose 327 mg/dL (70-99) H 09/15/18 23:25 340 (280-300) H 09/16/18 03:07 Calcium 8.5 mg/dL (8.6-10.3) L 09/13/18 01:24 0.2 mg/dL (0.3-1.0) L 09/09/18 14:05 AST 289 Units/L (13-39) H 09/15/18 16:09 ALT 404 Units/L (7-52) H 09/15/18 16:09 18.65 ng/mL (< 0.04) H* 09/13/18 01:24 5.8 g/dL (6.4-8.9) L 09/15/18 16:09 2.9 g/dL (3.5-5.7) L 09/15/18 16:09 1.0 (1.1-2.2) L 09/15/18 16:09 6 Units/L (11-82) L 09/08/18 17:08 1.27 ng/mL (0.00-0.15) H 09/12/18 15:45 Ur Specific [place] < 1.005 (1.010-1.025) L 09/08/18 21:01 [place] 0.3 mEq/L (0.6-1.2) L 09/09/18 01:49 DETECTED (Not Detect) A 09/10/18 09:40 - Microbiology Findings Microbiology Findings: Microbiology, Last 48 Hours 09/14/18 12:07 Blood Culture - Preliminary Peripheral Venipuncture Culture is incubating and being continuously monitored for growth. Final report to follow. 09/14/18 12:00 Blood Culture - Preliminary Peripheral Venipuncture Culture is incubating and being continuously monitored for growth. Final report to follow. - Clinical Findings Intake & Output: Intake & Output 09/15/18 09/16/18 09/16/18 23:59 07:59 15:59 Intake Total 871.3 / 2612.9 1062 / 1578 516 / 1578 Output Total 275 / 1900 900 / 900 Balance 596.3 / 712.9 162 / 678 516 / 678 Weight 71.2 kg Consult Discharge Plan - Plan Referrals: Sayda Villagran MD [Primary Care Provider] - <Nely Cabral - Last Filed: 09/20/18 09:18> Date of Encounter: 09/16/18 Assessment and Plan (1) ARDS (adult respiratory distress syndrome) Current Visit: Yes Status: Acute (2) COPD (chronic obstructive pulmonary disease) Current Visit: Yes Status: Chronic Qualifiers: COPD type: COPD with acute exacerbation Qualified Code(s): J44.1 - Chronic obstructive pulmonary disease with (acute) exacerbation (3) Acute respiratory failure with hypoxia Current Visit: Yes Status: Acute Objective PUL Vital signs: Last Vital Signs Temp 99.2 F 09/16/18 15:47 Pulse 95 09/16/18 17:00 Resp 14 09/16/18 17:00 BP 112/80 09/16/18 17:00 Pulse Ox 96 09/16/18 17:00 Ventilator Settings Ventilator Settings: Ventilator Settings, Last 8 Hours Ventilator Tidal Volume 500 Setting Ventilator Tidal Volume 500 Setting Ventilator Tidal Volume 500 Setting Ventilator Tidal Volume 500 Setting Ventilator Tidal Volume 500 Setting Ventilator Tidal Volume 500 Setting Ventilator Tidal Volume 500 Setting Ventilator Tidal Volume 500 Setting Ventilator Tidal Volume 500 Setting Ventilator Tidal Volume 500 Setting Ventilator Respiratory Rate 12 Setting Ventilator Respiratory Rate 12 Setting Ventilator Respiratory Rate 12 Setting Ventilator Respiratory Rate 12 Setting Ventilator Respiratory Rate 12 Setting Ventilator Respiratory Rate 12 Setting Ventilator Respiratory Rate 12 Setting Ventilator Respiratory Rate 12 Setting Ventilator Respiratory Rate 12 Setting Ventilator Respiratory Rate 12 Setting Actual Respiratory Rate 14 Actual Respiratory Rate 14 Actual Respiratory Rate 15 Actual Respiratory Rate 14 Actual Respiratory Rate 16 Actual Respiratory Rate 18 Actual Respiratory Rate 17 Actual Respiratory Rate 17 Actual Respiratory Rate 16 Actual Respiratory Rate 19 Positive End Expiratory 8 Pressure Positive End Expiratory 8 Pressure Positive End Expiratory 8 Pressure Positive End Expiratory 8 Pressure Positive End Expiratory 8 Pressure Positive End Expiratory 8 Pressure Positive End Expiratory 8 Pressure Positive End Expiratory 8 Pressure Positive End Expiratory 8 Pressure Positive End Expiratory 8 Pressure Peak Inspiratory Airway 25 Pressure Peak Inspiratory Airway 25 Pressure Peak Inspiratory Airway 25 Pressure Peak Inspiratory Airway 30 Pressure Peak Inspiratory Airway 29 Pressure Peak Inspiratory Airway 30 Pressure Peak Inspiratory Airway 27 Pressure Peak Inspiratory Airway 31 Pressure Peak Inspiratory Airway 40 Pressure Peak Inspiratory Airway 30 Pressure Results - Laboratory Findings CBC and BMP: 09/20/18 04:21 09/20/18 04:21 ABG ABG pH 7.36 pH Units (7.32-7.45) 09/16/18 03:59 ABG pCO2 55 mmHg (35-45) H 09/16/18 03:59 ABG pO2 67 mmHg (85-104) L 09/16/18 03:59 ABG O2 Saturation 92 % (95-98) L 09/16/18 03:59 PT/INR, D-dimer PT 12.2 Seconds (9.4-12.1) H 09/12/18 16:53 Abnormal lab findings: Abnormal lab results WBC 17.2 K/mcL (4.3-11.1) H 09/16/18 03:07 Hgb 8.7 g/dL (11.5-15.4) L 09/16/18 16:49 Hct 31.5 % (35.3-44.9) L 09/16/18 16:49 MCV 74.4 fL (83.0-100.0) L 09/16/18 03:07 MCH 20.5 pg (28.0-33.3) L 09/16/18 03:07 MCHC 27.5 g/dL (31.6-35.5) L 09/16/18 03:07 RDW 18.8 % (11.5-14.5) H 09/16/18 03:07 Plt Count 125 K/mcL (140-400) L 09/13/18 01:24 MPV 12.6 fL (9.4-12.4) H 09/16/18 03:07 Immature Gran % 4.3 % (0-4) H 09/11/18 04:10 8.0 % (0-4) H 09/10/18 05:39 14.9 K/mcL (1.6-8.9) H 09/16/18 03:07 0.4 K/mcL (0.6-4.6) L 09/09/18 01:49 Nucleated RBCs/100 WBC 2.0 /100 WBC (0) H 09/16/18 03:07 Slight Decrease (Normal) L 09/13/18 01:24 Present (Not Present) A 09/09/18 01:49 Immature Plt Fraction 10.4 % (1.1-6.1) H 09/15/18 07:26 1+ (Not Present) A 09/16/18 03:07 Present (Not Present) A 09/16/18 03:07 1+ (Not Present) A 09/10/18 05:39 1+ (Not Present) A 09/16/18 03:07 Present (Not Present) A 09/16/18 03:07 PT 12.2 Seconds (9.4-12.1) H 09/12/18 16:53 Heparin Anti-Xa, Unfract 0.28 IU/mL (0.30-0.70) L 09/14/18 19:15 ABG pH 7.51 pH Units (7.32-7.45) H 09/14/18 04:40 ABG pCO2 55 mmHg (35-45) H 09/16/18 03:59 ABG pO2 67 mmHg (85-104) L 09/16/18 03:59 ABG HCO3 31 mEq/L (21-27) H 09/16/18 03:59 ABG Total CO2 33 mEq/L (20-26) H 09/16/18 03:59 ABG O2 Saturation 92 % (95-98) L 09/16/18 03:59 ABG Base Excess 5 mEq/L (-2 to 3) H 09/16/18 03:59 Sodium 151 mEq/L (136-145) H 09/16/18 03:07 Potassium 3.1 mEq/L (3.5-5.1) L 09/08/18 17:08 Chloride 117 mEq/L (98-107) H 09/16/18 03:07 Carbon Dioxide 30 mEq/L (23-29) H 09/15/18 20:19 BUN 54 mg/dL (8-23) H 09/16/18 03:07 Est GFR (Non-Af Amer) 54 (> 60) L 09/13/18 01:24 81 (6-26) H 09/16/18 03:07 Glucose 344 mg/dL (70-105) H 09/16/18 03:07 POC Glucose 327 mg/dL (70-99) H 09/15/18 23:25 340 (280-300) H 09/16/18 03:07 Calcium 8.5 mg/dL (8.6-10.3) L 09/13/18 01:24 0.2 mg/dL (0.3-1.0) L 09/09/18 14:05 AST 289 Units/L (13-39) H 09/15/18 16:09 ALT 404 Units/L (7-52) H 09/15/18 16:09 18.65 ng/mL (< 0.04) H* 09/13/18 01:24 5.8 g/dL (6.4-8.9) L 09/15/18 16:09 2.9 g/dL (3.5-5.7) L 09/15/18 16:09 1.0 (1.1-2.2) L 09/15/18 16:09 6 Units/L (11-82) L 09/08/18 17:08 1.27 ng/mL (0.00-0.15) H 09/12/18 15:45 Ur Specific [place] < 1.005 (1.010-1.025) L 09/08/18 21:01 Vancomycin Trough 11 mcg/mL (5-10) H 09/16/18 13:37 [place] 0.3 mEq/L (0.6-1.2) L 09/09/18 01:49 DETECTED (Not Detect) A 09/10/18 09:40 - Microbiology Findings Microbiology Findings: Microbiology, Last 48 Hours 09/14/18 12:07 Blood Culture - Preliminary Peripheral Venipuncture Culture is incubating and being continuously monitored for growth. Final report to follow. 09/14/18 12:00 Blood Culture - Preliminary Peripheral Venipuncture Culture is incubating and being continuously monitored for growth. Final report to follow. - Clinical Findings Intake & Output: Intake & Output 09/16/18 09/16/18 09/16/18 07:59 15:59 23:59 Intake Total 1062 / 2224 1124 / 2224 38 / 2224 Output Total 900 / 1525 625 / 1525 Balance 162 / 699 499 / 699 38 / 699 Weight 71.2 kg - Attending Attestation I examined this patient and my medical decision-making was reviewed with the Re sident Physician. I agree with the documented findings, disposition and treatment plan as described except to the extent set forth below. Patient seen and examined. Labs, radiology, chart personally reviewed. 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 Pulmonary: Acceptable oxygenation and ventilation and she still have significant PEEPi and changed vent setting again trying to lower this to help her breathing and ventilation. She has pleural effusion that I don't feel this is empyema and due to her been on vent there is a risk of pneumothorax that would be serious in her case. Bronchoscopy might not add anything to the treatment. Cardiovascular: relatively stable and agree with tipple greaser. GI: Nutrition per dietary and GI prophylaxis per routine Heme: DVT prophylaxis per routine ID: Continue antibiotics and plan to de-escalation and will get ID consult Renal; urine out put and renal function reviewed. For hypernatremia we will increase free water intake and diuresis since patient is significantly volume overloaded. Endorcine: blood glucose is monitored Lines: all lines checked and no evidence of infections Skin: skin care to prevent pressure ulcers per nursing routine care Dispo:ICU and again discussed with family about her progress and the fact she is not doing any better is concerning and I feel this is poor prognosis. Code: DNR a. Prognosis. poor. I spent 32 min of Critical Care time with this patient. It involved decision making of high complexity to assess, manipulate, and support vital organ system failure and/or to prevent further life threatening deterioration of the patient's condition. The time involved in the performance of separately reportable procedures was not counted toward critical care time.
[2018-09-16] MEDS ORDERED: Insulin DETEMIR 100 UNIT/ML X5UNITS SQ ONE (10:52)
[2018-09-16 13:59] LABS: Hematocrit 31.6 % (35.3-44.9); Hemoglobin 8.9 g/dL (11.5-15.4)
[2018-09-16 17:18] LABS: Hematocrit 31.5 % (35.3-44.9); Hemoglobin 8.7 g/dL (11.5-15.4)
[2018-09-16] MEDS: *HR* Heparin 5,000 UNIT/ML VIAL SQ SCH (17:20)
[2018-09-16] MEDS: D5% in Water 1,000 ML IVC SCH (19:35)
[2018-09-16] MEDS: Insulin DETEMIR 100 UNIT/ML X5UNITS SQ SCH (20:55)
[2018-09-16 23:06] LABS: Hematocrit 30.6 % (35.3-44.9); Hemoglobin 8.4 g/dL (11.5-15.4)
[2018-09-17] MEDS: Artificial Tears SOLN 15 ML BOTTLE BOTH EYES SCH ×5 (03:09→20:02)
[2018-09-17] MEDS: *HR* Metoprolol 5 MG/5 ML VIAL IVP SCH ×4 (03:09→20:01)
[2018-09-17] MEDS: Ipratropium/Albuterol Neb 3 ML IH SCH ×5 (03:14→19:59)
[2018-09-17 04:29] LABS: ABG Base Excess 10 mEq/L (-2 to 3); ABG HCO3 36 mEq/L (21-27); ABG Oxygen Saturation 85 % (95-98); ABG PCO2 53 mmHg (35-45); ABG PH 7.43 pH Units (7.32-7.45); ABG PO2 49 mmHg (85-104); ABG TCO2 37 mEq/L (20-26); Blood Gas Modality ASSIST CONTROL; Blood Gas PEEP 8 cm H2O; Blood Gas VT 500 cc
[2018-09-17 04:36] LABS: Mean Corpuscular Hemoglobin 20.8 pg (28.0-33.3)
[2018-09-17 04:38] LABS: Hematocrit 29.6 % (35.3-44.9); Hemoglobin 8.2 g/dL (11.5-15.4); Mean Corpuscular HGB Conc 27.7 g/dL (31.6-35.5); Mean Corpuscular Volume 74.9 fL (83.0-100.0); Nucleated Red Blood Cells 2.6 /100 WBC (0); Platelet Count 283 K/mcL (140-400); Red Blood Count 3.95 M/mcL (3.82-4.97); Red Cell Distribution Width 18.6 % (11.5-14.5); White Blood Count 18.9 K/mcL (4.3-11.1)
[2018-09-17 04:59] LABS: BUN/Creatinine Ratio 69 (6-26); Blood Urea Nitrogen 63 mg/dL (8-23); Calcium 9.6 mg/dL (8.6-10.3); Carbon Dioxide 32 mEq/L (23-29); Chloride 116 mEq/L (98-107); Glucose 334 mg/dL (70-105); Osmolality,Calculated 347 (280-300); Potassium 4.4 mEq/L (3.5-5.1); Sodium 153 mEq/L (136-145); eGFR For African Americans > 60 (> 60); eGFR For Non-African Americans > 60 (> 60)
[2018-09-17] MEDS: Insulin LISPRO 300 UNITS/3 ML VIAL SQ SCH ×2 (05:12→07:54)
[2018-09-17] MEDS: Doxycycline 100 MG in 0.9 % Sodium Chloride Mini Bag 100 ML IVPB SCH ×2 (05:13→17:08)
[2018-09-17] MEDS: *HR* Heparin 5,000 UNIT/ML VIAL SQ SCH ×2 (05:13→17:17)
[2018-09-17 05:16] LABS: Basophilic Stippling 1+ (Not Present); Lymphocytes # 0.4 K/mcL (0.6-4.6); Neutrophils # 18.5 K/mcL (1.6-8.9); Platelet Estimate Normal (Normal); Polychromasia 1+ (Not Present)
[2018-09-17 05:17] LABS: Anisocytosis 1+ (Not Present); Microcytosis Present (Not Present)
[2018-09-17] MEDS: Pantoprazole 40 MG VIAL IVP SCH (05:19)
[2018-09-17] MEDS: Piperacillin/Tazobactam 3.375 GM in 0.9 % Sodium Chloride Mini Bag 100 ML IVPB SCH ×3 (06:11→21:39)
--- NOTE | 2018-09-17 07:03 | Pulmonology Progress Note ---
<Aurelio Cole - Last Filed: 09/17/18 16:56> Date of Encounter: 09/17/18 Time of Encounter: 08:14 Assessment and Plan (1) Acute respiratory failure with hypoxia Current Visit: Yes Status: Acute Assessment: - On 09/11/18, patient developed worsening respiratory distress with accessory muscle use and required intubation - Etiology is unknown at this time; likely secondary to pneumonia and adenovirus - Chest CT 09/15 demonstrated a right-sided pleural effusion; imaging reviewed by IR - Based on patient still being intubated/sedated, risks of thoracentesis outweigh benefits at this time - Low suspicion for empyema at this time - Vent settings: Ventilator respiratory rate 12, TV 500, FiO2 40%, PEEP 8 Plan: - Continue antibiotic therapy with vancomycin and Zosyn for pneumonia (day 6) - Continue propofol and fentayl for sedation - Will administer 2 doses of Lasix 20 mg IV - IV Solu-Medrol 40 mg IV (2) Sepsis Current Visit: Yes Status: Acute Assessment: - Currently meets 2/4 SIRS criteria with tachycardia, leukocytosis; has also had intermittent fevers during stay in the ICU - Causative organism unknown; potential sources include PNA and tick-borne illness - History of a tick bite on the shoulder with subsequent flulike illness a few weeks prior to admission - Respiratory infection panel (+) for adenovirus - Blood CX from 09/08 are (-) x2 - Blood CX from 09/12 and 09/14 are pending - Strep/legionella antigen from 09/10 are (-) Plan: - IV Vancomycin (day 6), Zosyn (day 6), and doxycycline (day 3) - We will consult infectious disease for further recommendations on antibiotic therapy and further disgnostic studies Qualifiers: Qualified Code(s): A41.9 - Sepsis, unspecified organism (3) RLL pneumonia Current Visit: Yes Status: Acute As demonstrated on imaging studies: - CXR 09/08: Acute RLL PNA - CT chest 09/10: RML PNA, trace reactive R pleural effusion, small RUL pulmonary nodules - CXR 09/11: Progressive airspace disease compared to prior study - CXR 09/13: Increasing airspace consolidation in RML and RLL - CXR 09/14: No interval change in R pleural effusion and R-sided airspace opacity - Causative organism unknown at this time; Respiratory infection panel (+) for adenovirus Plan: - Continue IV vancomycin and Zosyn; (Day 6 of both) - Continue contact precautions - Solu-Medrol 40 mg - We will consult infectious disease for further recommendations regarding antibiotic therapy Qualifiers: Pneumonia type: due to unspecified organism Qualified Code(s): J18.1 - Lobar pneumonia, unspecified organism (4) NSTEMI (non-ST elevated myocardial infarction) Current Visit: Yes Status: Acute - Initial troponin levels drawn on 09/09 were <0.03 - Troponin levels drawn on 09/12: 10.43, 13.64, 19.07, 18.65 - Patient was started on heparin drip and cardiology was consulted - TTE on 09/13/18: EF 25-30%, severe global and segmental LV systolic dysfunction, mild LV diastolic dysfunction - Per cardiology, findings suggestive of Takotsubo cardiomyopathy Plan: - Heparin drip switched to DVT prophylaxis per the recommendations of cardiology - Continue aspirin and beta merlyn - Cardiology has signed off; If patients respiratory status improves and she is successfully extubated, will re-consult cardiology for a possible LHC (5) Tick bite Current Visit: Yes Status: Acute - Patients son contacted us and informed us that patient had been bitten by a tick a few weeks ago - After this tick bite, patient began feeling nauseous and developed malaise with fevers and chills - He stated that the symptoms continued up to the point of admission to the hospital - Spoke with infectious disease yesterday, who recommended treating empirically for tick borne illness if index of suspicion is high - Obtained LFTs on the afternoon of 09/15; AST 289, ALT 404 - Etiology may be Ehrlichiosis, supported by: cyclical fevers, history of tick bite, elevated LFTs - Continue Doxycycline 100 mg IV (day 3) Qualifiers: Qualified Code(s): W57.XXXA - Bitten or stung by nonvenomous insect and other nonvenomous arthropods, initial encounter (6) Fever Current Visit: Yes Status: Acute - Patient has had sporadically elevated temperature since 09/11 - Temperature at initially decreased after ice bath earlier in her stay - Etiology unknown; possibly secondary to tick borne illness, pneumonia - Patient had continued to spike fevers despite being on broad-spectrum antibiotics - Added doxycycline for possible tickborne illness - Appears to be improving; she has been afebrile in the last 24 hours, with an average temperature 90.8 Plan: - Continue vancomycin, Zosyn, and doxycycline as documented above Qualifiers: Qualified Code(s): R50.9 - Fever, unspecified (7) Leukocytosis Current Visit: Yes Status: Acute - Patient has leukocytosis at 18.9 with left shift - Etiology likely multifactorial: PNA, tick borne illness, IV steroids - Continue antibiotics as documented above - Repeat CBC in the a.m. Qualifiers: Qualified Code(s): D72.829 - Elevated white blood cell count, unspecified (8) HFrEF (heart failure with reduced ejection fraction) Current Visit: Yes Status: Acute - As demonstrated on echocardiogram - Cardiology following Qualifiers: Qualified Code(s): I50.20 - Unspecified systolic (congestive) heart failure (9) COPD (chronic obstructive pulmonary disease) Current Visit: Yes Status: Chronic - Known history of COPD in the setting of acute respiratory failure - Plan as above Qualifiers: COPD type: COPD with acute exacerbation Qualified Code(s): J44.1 - Chronic obstructive pulmonary disease with (acute) exacerbation (10) Hypertension Current Visit: Yes Status: Chronic - PRN Lopressor Qualifiers: Hypertension type: essential hypertension Qualified Code(s): I10 - Essential (primary) hypertension (11) DVT prophylaxis Current Visit: Yes Status: Acute - SubQ heparin Subjective Principal diagnosis: NSTEMI, CMP, respiratory failure Interval history: Patient was seen and examined at bedside this morning. She is still intubated and sedated. Her glucose remains elevated today in the 300s, despite her being on high-dose correction insulin sliding scale, and despite increasing her basal insulin yesterday. We will start an insulin drip today for that her glycemic control. We will also order 2 more doses of Lasix 20 mg IV. Her sodium remains elevated at 153. We will increase her free water from every 6 to every 4 hours. Her stay in the ICU has been complicated by intermittent fevers; this appears to be improving. Her average temperature in the last 24 hours has been 98. Her last fever was yesterday morning at 7:56 with a temp of 101.5. We are continuing doxycycline for suspected tickborne illness (Day 3), as well as vancomycin and Zosyn (Day 6) for possible pneumonia. Will consult infectious disease for further recommendations regarding antibiotic therapy. Objective PUL Vital signs: Last Vital Signs Temp 98.5 F 09/17/18 06:50 Pulse 98 09/17/18 06:00 Resp 17 09/17/18 06:00 BP 108/79 09/17/18 06:00 Pulse Ox 97 09/17/18 06:00 General: Intubated and sedated; nonresponsive; no signs of acute agitation or distress Head: Dry mucous membranes noted; endotracheal tube in place Neck: No deformities noted Respiratory: Diminished breath sounds bilaterally; rales present bilaterally Cardiovascular: RRR, +S1/+S2; no murmurs, rubs, gallops Abdomen: Soft, nondistended Extremities: No clubbing, edema, or cyanosis; ecchymosis present on dorsum of left hand Neurological: Obtunded Psychiatric: Unable to assess Skin: dry, intact Ventilator Settings Ventilator Settings: Ventilator Settings, Last 8 Hours Ventilator Tidal Volume 500 Setting Ventilator Tidal Volume 500 Setting Ventilator Tidal Volume 500 Setting Ventilator Tidal Volume 500 Setting Ventilator Tidal Volume 500 Setting Ventilator Tidal Volume 500 Setting Ventilator Tidal Volume 500 Setting Ventilator Tidal Volume 500 Setting Ventilator Tidal Volume 500 Setting Ventilator Tidal Volume 500 Setting Ventilator Tidal Volume 500 Setting Ventilator Tidal Volume 500 Setting Ventilator Respiratory Rate 12 Setting Ventilator Respiratory Rate 12 Setting Ventilator Respiratory Rate 12 Setting Ventilator Respiratory Rate 12 Setting Ventilator Respiratory Rate 12 Setting Ventilator Respiratory Rate 12 Setting Ventilator Respiratory Rate 12 Setting Ventilator Respiratory Rate 12 Setting Ventilator Respiratory Rate 12 Setting Ventilator Respiratory Rate 12 Setting Ventilator Respiratory Rate 12 Setting Ventilator Respiratory Rate 12 Setting Actual Respiratory Rate 18 Actual Respiratory Rate 16 Actual Respiratory Rate 13 Actual Respiratory Rate 13 Actual Respiratory Rate 18 Actual Respiratory Rate 18 Actual Respiratory Rate 18 Actual Respiratory Rate 16 Actual Respiratory Rate 16 Actual Respiratory Rate 15 Actual Respiratory Rate 14 Positive End Expiratory 8 Pressure Positive End Expiratory 8 Pressure Positive End Expiratory 8 Pressure Positive End Expiratory 8 Pressure Positive End Expiratory 8 Pressure Positive End Expiratory 8 Pressure Positive End Expiratory 8 Pressure Positive End Expiratory 8 Pressure Positive End Expiratory 8 Pressure Positive End Expiratory 8 Pressure Positive End Expiratory 8 Pressure Positive End Expiratory 8 Pressure Peak Inspiratory Airway 24 Pressure Peak Inspiratory Airway 23 Pressure Peak Inspiratory Airway 23 Pressure Peak Inspiratory Airway 23 Pressure Peak Inspiratory Airway 24 Pressure Peak Inspiratory Airway 24 Pressure Peak Inspiratory Airway 22 Pressure Peak Inspiratory Airway 21 Pressure Peak Inspiratory Airway 23 Pressure Peak Inspiratory Airway 25 Pressure Peak Inspiratory Airway 23 Pressure Results - Laboratory Findings CBC and BMP: 09/17/18 04:14 09/17/18 04:14 ABG ABG pH 7.43 pH Units (7.32-7.45) 09/17/18 04:19 ABG pCO2 53 mmHg (35-45) H 09/17/18 04:19 ABG pO2 49 mmHg (85-104) L* 09/17/18 04:19 ABG O2 Saturation 85 % (95-98) L 09/17/18 04:19 PT/INR, D-dimer PT 12.2 Seconds (9.4-12.1) H 09/12/18 16:53 Abnormal lab findings: Abnormal lab results WBC 18.9 K/mcL (4.3-11.1) H 09/17/18 04:14 Hgb 8.2 g/dL (11.5-15.4) L 09/17/18 04:14 Hct 29.6 % (35.3-44.9) L 09/17/18 04:14 MCV 74.9 fL (83.0-100.0) L 09/17/18 04:14 MCH 20.8 pg (28.0-33.3) L 09/17/18 04:14 MCHC 27.7 g/dL (31.6-35.5) L 09/17/18 04:14 RDW 18.6 % (11.5-14.5) H 09/17/18 04:14 Plt Count 125 K/mcL (140-400) L 09/13/18 01:24 MPV 12.6 fL (9.4-12.4) H 09/16/18 03:07 Immature Gran % 4.3 % (0-4) H 09/11/18 04:10 8.0 % (0-4) H 09/10/18 05:39 18.5 K/mcL (1.6-8.9) H 09/17/18 04:14 0.4 K/mcL (0.6-4.6) L 09/17/18 04:14 Nucleated RBCs/100 WBC 2.6 /100 WBC (0) H 09/17/18 04:14 Slight Decrease (Normal) L 09/13/18 01:24 Present (Not Present) A 09/09/18 01:49 Immature Plt Fraction 10.4 % (1.1-6.1) H 09/15/18 07:26 1+ (Not Present) A 09/17/18 04:14 Present (Not Present) A 09/16/18 03:07 1+ (Not Present) A 09/10/18 05:39 1+ (Not Present) A 09/17/18 04:14 1+ (Not Present) A 09/17/18 04:14 Present (Not Present) A 09/17/18 04:14 PT 12.2 Seconds (9.4-12.1) H 09/12/18 16:53 Heparin Anti-Xa, Unfract 0.28 IU/mL (0.30-0.70) L 09/14/18 19:15 ABG pH 7.51 pH Units (7.32-7.45) H 09/14/18 04:40 ABG pCO2 53 mmHg (35-45) H 09/17/18 04:19 ABG pO2 49 mmHg (85-104) L* 09/17/18 04:19 ABG HCO3 36 mEq/L (21-27) H 09/17/18 04:19 ABG Total CO2 37 mEq/L (20-26) H 09/17/18 04:19 ABG O2 Saturation 85 % (95-98) L 09/17/18 04:19 ABG Base Excess 10 mEq/L (-2 to 3) H 09/17/18 04:19 Sodium 153 mEq/L (136-145) H 09/17/18 04:14 Potassium 3.1 mEq/L (3.5-5.1) L 09/08/18 17:08 Chloride 116 mEq/L (98-107) H 09/17/18 04:14 Carbon Dioxide 32 mEq/L (23-29) H 09/17/18 04:14 BUN 63 mg/dL (8-23) H 09/17/18 04:14 Est GFR (Non-Af Amer) 54 (> 60) L 09/13/18 01:24 69 (6-26) H 09/17/18 04:14 Glucose 334 mg/dL (70-105) H 09/17/18 04:14 POC Glucose 290 mg/dL (70-99) H 09/16/18 23:18 347 (280-300) H 09/17/18 04:14 Calcium 8.5 mg/dL (8.6-10.3) L 09/13/18 01:24 0.2 mg/dL (0.3-1.0) L 09/09/18 14:05 AST 289 Units/L (13-39) H 09/15/18 16:09 ALT 404 Units/L (7-52) H 09/15/18 16:09 18.65 ng/mL (< 0.04) H* 09/13/18 01:24 5.8 g/dL (6.4-8.9) L 09/15/18 16:09 2.9 g/dL (3.5-5.7) L 09/15/18 16:09 1.0 (1.1-2.2) L 09/15/18 16:09 6 Units/L (11-82) L 09/08/18 17:08 1.27 ng/mL (0.00-0.15) H 09/12/18 15:45 Ur Specific [place] < 1.005 (1.010-1.025) L 09/08/18 21:01 Vancomycin Trough 11 mcg/mL (5-10) H 09/16/18 13:37 [place] 0.3 mEq/L (0.6-1.2) L 09/09/18 01:49 DETECTED (Not Detect) A 09/10/18 09:40 - Clinical Findings Intake & Output: Intake & Output 09/16/18 09/16/18 09/17/18 15:59 23:59 07:59 Intake Total 1124 / 3332 1146 / 3332 918 / 918 Output Total 625 / 2725 1200 / 2725 710 / 710 Balance 499 / 607 -54 / 607 208 / 208 Weight 72.5 kg Consult Discharge Plan - Plan Referrals: Sayda Villagran MD [Primary Care Provider] - <Nely Cabral - Last Filed: 09/17/18 23:45> Date of Encounter: 09/17/18 Assessment and Plan (1) ARDS (adult respiratory distress syndrome) Current Visit: Yes Status: Acute (2) COPD (chronic obstructive pulmonary disease) Current Visit: Yes Status: Chronic Qualifiers: COPD type: COPD with acute exacerbation Qualified Code(s): J44.1 - Chronic obstructive pulmonary disease with (acute) exacerbation (3) Acute respiratory failure with hypoxia Current Visit: Yes Status: Acute Objective PUL Vital signs: Last Vital Signs Temp 98.2 F 09/17/18 16:00 Pulse 102 09/17/18 16:00 Resp 13 09/17/18 16:00 BP 112/74 09/17/18 16:00 Pulse Ox 96 09/17/18 16:00 Ventilator Settings Ventilator Settings: Ventilator Settings, Last 8 Hours Ventilator Tidal Volume 550 Setting Ventilator Tidal Volume 550 Setting Ventilator Tidal Volume 550 Setting Ventilator Tidal Volume 550 Setting Ventilator Tidal Volume 550 Setting Ventilator Tidal Volume 550 Setting Ventilator Tidal Volume 550 Setting Ventilator Tidal Volume 550 Setting Ventilator Tidal Volume 550 Setting Ventilator Tidal Volume 550 Setting Ventilator Respiratory Rate 10 Setting Ventilator Respiratory Rate 10 Setting Ventilator Respiratory Rate 10 Setting Ventilator Respiratory Rate 10 Setting Ventilator Respiratory Rate 10 Setting Ventilator Respiratory Rate 10 Setting Ventilator Respiratory Rate 10 Setting Ventilator Respiratory Rate 10 Setting Ventilator Respiratory Rate 10 Setting Ventilator Respiratory Rate 10 Setting Actual Respiratory Rate 18 Actual Respiratory Rate 16 Actual Respiratory Rate 17 Positive End Expiratory 5 Pressure Positive End Expiratory 5 Pressure Positive End Expiratory 5 Pressure Positive End Expiratory 5 Pressure Positive End Expiratory 5 Pressure Positive End Expiratory 5 Pressure Positive End Expiratory 5 Pressure Positive End Expiratory 5 Pressure Positive End Expiratory 5 Pressure Positive End Expiratory 5 Pressure Peak Inspiratory Airway 39 Pressure Peak Inspiratory Airway 20 Pressure Peak Inspiratory Airway 18 Pressure Peak Inspiratory Airway 21 Pressure Peak Inspiratory Airway 22 Pressure Peak Inspiratory Airway 22 Pressure Peak Inspiratory Airway 23 Pressure Peak Inspiratory Airway 24 Pressure Peak Inspiratory Airway 23 Pressure Peak Inspiratory Airway 25 Pressure Results - Laboratory Findings CBC and BMP: 09/17/18 04:14 09/17/18 04:14 ABG ABG pH 7.43 pH Units (7.32-7.45) 09/17/18 04:19 ABG pCO2 53 mmHg (35-45) H 09/17/18 04:19 ABG pO2 49 mmHg (85-104) L* 09/17/18 04:19 ABG O2 Saturation 85 % (95-98) L 09/17/18 04:19 PT/INR, D-dimer PT 12.2 Seconds (9.4-12.1) H 09/12/18 16:53 Abnormal lab findings: Abnormal lab results WBC 18.9 K/mcL (4.3-11.1) H 09/17/18 04:14 Hgb 8.2 g/dL (11.5-15.4) L 09/17/18 04:14 Hct 29.6 % (35.3-44.9) L 09/17/18 04:14 MCV 74.9 fL (83.0-100.0) L 09/17/18 04:14 MCH 20.8 pg (28.0-33.3) L 09/17/18 04:14 MCHC 27.7 g/dL (31.6-35.5) L 09/17/18 04:14 RDW 18.6 % (11.5-14.5) H 09/17/18 04:14 Plt Count 125 K/mcL (140-400) L 09/13/18 01:24 MPV 12.6 fL (9.4-12.4) H 09/16/18 03:07 Immature Gran % 4.3 % (0-4) H 09/11/18 04:10 8.0 % (0-4) H 09/10/18 05:39 18.5 K/mcL (1.6-8.9) H 09/17/18 04:14 0.4 K/mcL (0.6-4.6) L 09/17/18 04:14 Nucleated RBCs/100 WBC 2.6 /100 WBC (0) H 09/17/18 04:14 Slight Decrease (Normal) L 09/13/18 01:24 Present (Not Present) A 09/09/18 01:49 Immature Plt Fraction 10.4 % (1.1-6.1) H 09/15/18 07:26 1+ (Not Present) A 09/17/18 04:14 Present (Not Present) A 09/16/18 03:07 1+ (Not Present) A 09/10/18 05:39 1+ (Not Present) A 09/17/18 04:14 1+ (Not Present) A 09/17/18 04:14 Present (Not Present) A 09/17/18 04:14 PT 12.2 Seconds (9.4-12.1) H 09/12/18 16:53 Heparin Anti-Xa, Unfract 0.28 IU/mL (0.30-0.70) L 09/14/18 19:15 ABG pH 7.51 pH Units (7.32-7.45) H 09/14/18 04:40 ABG pCO2 53 mmHg (35-45) H 09/17/18 04:19 ABG pO2 49 mmHg (85-104) L* 09/17/18 04:19 ABG HCO3 36 mEq/L (21-27) H 09/17/18 04:19 ABG Total CO2 37 mEq/L (20-26) H 09/17/18 04:19 ABG O2 Saturation 85 % (95-98) L 09/17/18 04:19 ABG Base Excess 10 mEq/L (-2 to 3) H 09/17/18 04:19 Sodium 153 mEq/L (136-145) H 09/17/18 04:14 Potassium 3.1 mEq/L (3.5-5.1) L 09/08/18 17:08 Chloride 116 mEq/L (98-107) H 09/17/18 04:14 Carbon Dioxide 32 mEq/L (23-29) H 09/17/18 04:14 BUN 63 mg/dL (8-23) H 09/17/18 04:14 Est GFR (Non-Af Amer) 54 (> 60) L 09/13/18 01:24 69 (6-26) H 09/17/18 04:14 Glucose 334 mg/dL (70-105) H 09/17/18 04:14 POC Glucose 290 mg/dL (70-99) H 09/16/18 23:18 347 (280-300) H 09/17/18 04:14 Calcium 8.5 mg/dL (8.6-10.3) L 09/13/18 01:24 0.2 mg/dL (0.3-1.0) L 09/09/18 14:05 AST 289 Units/L (13-39) H 09/15/18 16:09 ALT 404 Units/L (7-52) H 09/15/18 16:09 18.65 ng/mL (< 0.04) H* 09/13/18 01:24 5.8 g/dL (6.4-8.9) L 09/15/18 16:09 2.9 g/dL (3.5-5.7) L 09/15/18 16:09 1.0 (1.1-2.2) L 09/15/18 16:09 6 Units/L (11-82) L 09/08/18 17:08 1.27 ng/mL (0.00-0.15) H 09/12/18 15:45 Ur Specific [place] < 1.005 (1.010-1.025) L 09/08/18 21:01 Vancomycin Trough 16 mcg/mL (5-10) H 09/17/18 16:11 [place] 0.3 mEq/L (0.6-1.2) L 09/09/18 01:49 DETECTED (Not Detect) A 09/10/18 09:40 - Microbiology Findings Microbiology Findings: Microbiology, Last 48 Hours 09/12/18 16:47 Blood Culture - Final Peripheral Venipuncture No growth. Final report. 09/12/18 16:47 Blood Culture - Final Peripheral Venipuncture No growth. Final report. - Clinical Findings Intake & Output: Intake & Output 09/17/18 09/17/18 09/17/18 07:59 15:59 23:59 Intake Total 918 / 2257.0 1339.0 / 2257.0 Output Total 710 / 1810 1100 / 1810 Balance 208 / 447.0 239.0 / 447.0 Weight 72.5 kg - Attending Attestation I examined this patient and my medical decision-making was reviewed with the Resident Physician. I agree with the documented findings, disposition and treatment plan as described except to the extent set forth below. Patient seen and examined. Labs, radiology, chart personally reviewed. Agree with resident's history and physical, assessment, plan with following comments: [employer]OR: Patient doesn't follows commands, unfortunately patient is not making any significant progress and at this time the sedation only to help her work of breathing and for vent synchrony. Pulmonary: Acceptable oxygenation and ventilation, however there still significant PEEPi which is related to her underlying COPD and she is on bronchodilators and treatment for COPD, however not much improvement. Continue to change vent setting to help her to be liberated from the ventilator without success. Cardiovascular: relatively stable GI: Nutrition per dietary and GI prophylaxis per routine Heme: DVT prophylaxis per routine ID: Continue antibiotics and plan to de-escalation and will consult ID to make sure there is nothing else to add since she has already been on antibiotics and still no significant improvement. Renal; urine out put and renal function reviewed. Focus on diuresis to help her to liberate from the vent and at the same time increase her free water to correct her hypernatremia more aggressively. Endorcine: blood glucose is monitored Lines: all lines checked and no evidence of infections Skin: skin care to prevent pressure ulcers per nursing routine care Dispo: ICU Code: DNR-A Prognosis. Poor and I discussed with the family regarding our initial plan to revisit this at the end of this week and unfortunately patient is not making significant progress. and son wants to wait until early next week which is reasonable. I spent 35 min of Critical Care time with this patient. It involved decision making of high complexity to assess, manipulate, and support vital organ system failure and/or to prevent further life threatening deterioration of the patient's condition. The time involved in the performance of separately reportable procedures was not counted toward critical care time.
[2018-09-17] MEDS: Budesonide/Formoterol 160/4.5 1 PUFF INH IH SCH ×2 (07:19→19:59)
[2018-09-17] MEDS: Docusate Oral Soln 100 MG/10 ML UDC GTUBE SCH ×2 (07:53→20:01)
[2018-09-17] MEDS: Aspirin 81 MG TAB.CHEW PO SCH (07:53)
[2018-09-17] MEDS: Insulin DETEMIR 100 UNIT/ML X5UNITS SQ SCH (07:53)
[2018-09-17] MEDS: Chlorhexidine Rinse 15 ML MOUTHWASH MM SCH ×2 (07:53→20:01)
[2018-09-17] MEDS: MethylPREDNISolone 40 MG/ML VIAL IVP SCH ×2 (07:53→16:13)
[2018-09-17] MEDS ORDERED: *HR* Dextrose 50 % in Water (Syg) 50 ML SYRINGE IVP PRN ×2 (07:58→15:25)
[2018-09-17] MEDS: D5% in Water 1,000 ML IVC SCH (08:17)
[2018-09-17] MEDS: Insulin Human Regular 100 UNIT in 0.9 % Sodium Chloride 100 ML IVC SCH (08:43)
[2018-09-17] MEDS: Furosemide 20 MG/2 ML VIAL IVP SCH ×2 (08:43→16:17)
[2018-09-17] MEDS: FentaNYL (PF) 1,000 MCG in 0.9 % Sodium Chloride 80 ML IVC SCH ×2 (08:49→19:41)
[2018-09-17] MEDS ORDERED: Bisacodyl 10 MG RECTAL SUPPOSITORY RC PRN (10:29)
[2018-09-17] MEDS ORDERED: Bisacodyl 10 MG RECTAL SUPPOSITORY RC ONE (10:29)
[2018-09-17] MEDS ORDERED: D5% in Water 1,000 ML IVC PRN (15:25)
[2018-09-17] MEDS ORDERED: Dextrose Gel 15 GM/37.5 ML TUBE PO PRN ×2 (15:25)
[2018-09-17] MEDS ORDERED: Insulin LISPRO 300 UNITS/3 ML VIAL SQ SCH (16:30)
[2018-09-18] MEDS: MethylPREDNISolone 40 MG/ML VIAL IVP SCH ×3 (00:12→18:06)
[2018-09-18] MEDS: Ipratropium/Albuterol Neb 3 ML IH SCH ×7 (00:14→23:28)
[2018-09-18] MEDS: Artificial Tears SOLN 15 ML BOTTLE BOTH EYES SCH ×6 (00:19→20:05)
[2018-09-18] MEDS: *HR* Metoprolol 5 MG/5 ML VIAL IVP SCH ×4 (01:20→21:09)
[2018-09-18 04:54] LABS: ABG Base Excess 14 mEq/L (-2 to 3); ABG HCO3 40 mEq/L (21-27); ABG Oxygen Saturation 100 % (95-98); ABG PCO2 58 mmHg (35-45); ABG PH 7.45 pH Units (7.32-7.45); ABG PO2 173 mmHg (85-104); ABG TCO2 42 mEq/L (20-26); Blood Gas Modality ASSIST CONTROL; Blood Gas PEEP 5 cm H2O; Blood Gas VT 550 cc
[2018-09-18] MEDS ORDERED: *HR* Metoprolol 5 MG/5 ML VIAL IVP ONE (04:54)
[2018-09-18 05:17] LABS: Hematocrit 33.4 % (35.3-44.9); Hemoglobin 9.1 g/dL (11.5-15.4); Mean Corpuscular HGB Conc 27.2 g/dL (31.6-35.5); Mean Corpuscular Hemoglobin 20.3 pg (28.0-33.3); Mean Corpuscular Volume 74.6 fL (83.0-100.0); Nucleated Red Blood Cells 2.1 /100 WBC (0); Platelet Count 383 K/mcL (140-400); Red Blood Count 4.48 M/mcL (3.82-4.97); Red Cell Distribution Width 19.5 % (11.5-14.5); White Blood Count 25.3 K/mcL (4.3-11.1)
[2018-09-18 05:30] LABS: BUN/Creatinine Ratio 80 (6-26); Blood Urea Nitrogen 59 mg/dL (8-23); Calcium 9.9 mg/dL (8.6-10.3); Carbon Dioxide 35 mEq/L (23-29); Chloride 113 mEq/L (98-107); Glucose 169 mg/dL (70-105); Osmolality,Calculated 344 (280-300); Potassium 4.6 mEq/L (3.5-5.1); Sodium 157 mEq/L (136-145); eGFR For African Americans > 60 (> 60); eGFR For Non-African Americans > 60 (> 60)
[2018-09-18] MEDS: *HR* Heparin 5,000 UNIT/ML VIAL SQ SCH ×2 (05:38→18:06)
[2018-09-18] MEDS: Pantoprazole 40 MG VIAL IVP SCH (05:38)
[2018-09-18] MEDS: Doxycycline 100 MG in 0.9 % Sodium Chloride Mini Bag 100 ML IVPB SCH (05:40)
[2018-09-18] MEDS: FentaNYL (PF) 1,000 MCG in 0.9 % Sodium Chloride 80 ML IVC SCH ×3 (06:07→22:32)
[2018-09-18 06:23] LABS: Lymphocytes # 1.3 K/mcL (0.6-4.6); Polychromasia 1+ (Not Present)
[2018-09-18 06:24] LABS: Anisocytosis 2+ (Not Present); Basophilic Stippling 1+ (Not Present); Hypochromasia Present (Not Present); Platelet Estimate Normal (Normal); Smudge Cells Present (Not Present)
[2018-09-18] MEDS: Piperacillin/Tazobactam 3.375 GM in 0.9 % Sodium Chloride Mini Bag 100 ML IVPB SCH ×3 (06:53→20:05)
[2018-09-18] MEDS: Insulin Human Regular 100 UNIT in 0.9 % Sodium Chloride 100 ML IVC SCH (07:00)
--- NOTE | 2018-09-18 07:43 | Pulmonology Progress Note ---
<WhitLuigi W - Last Filed: 09/18/18 11:31> Date of Encounter: 09/18/18 Objective PUL Vital signs: Last Vital Signs Temp 102.2 F H 09/18/18 07:27 Pulse 85 09/18/18 11:00 Resp 21 09/18/18 11:01 BP 100/68 09/18/18 11:00 Pulse Ox 95 09/18/18 11:01 Ventilator Settings Ventilator Settings: Ventilator Settings, Last 8 Hours Ventilator Tidal Volume 460 Setting Ventilator Tidal Volume 460 Setting Ventilator Tidal Volume 460 Setting Ventilator Tidal Volume 460 Setting Ventilator Tidal Volume 460 Setting Ventilator Tidal Volume 460 Setting Ventilator Tidal Volume 550 Setting Ventilator Tidal Volume 550 Setting Ventilator Tidal Volume 550 Setting Ventilator Tidal Volume 550 Setting Ventilator Tidal Volume 550 Setting Ventilator Tidal Volume 550 Setting Ventilator Tidal Volume 550 Setting Ventilator Respiratory Rate 10 Setting Ventilator Respiratory Rate 10 Setting Ventilator Respiratory Rate 10 Setting Ventilator Respiratory Rate 10 Setting Ventilator Respiratory Rate 10 Setting Ventilator Respiratory Rate 10 Setting Ventilator Respiratory Rate 10 Setting Ventilator Respiratory Rate 10 Setting Ventilator Respiratory Rate 10 Setting Ventilator Respiratory Rate 10 Setting Ventilator Respiratory Rate 10 Setting Ventilator Respiratory Rate 10 Setting Ventilator Respiratory Rate 10 Setting Actual Respiratory Rate 21 Actual Respiratory Rate 25 Actual Respiratory Rate 21 Actual Respiratory Rate 21 Actual Respiratory Rate 20 Actual Respiratory Rate 21 Actual Respiratory Rate 19 Positive End Expiratory 5 Pressure Positive End Expiratory 5 Pressure Positive End Expiratory 5 Pressure Positive End Expiratory 5 Pressure Positive End Expiratory 5 Pressure Positive End Expiratory 5 Pressure Positive End Expiratory 5 Pressure Positive End Expiratory 5 Pressure Positive End Expiratory 5 Pressure Positive End Expiratory 5 Pressure Positive End Expiratory 5 Pressure Positive End Expiratory 5 Pressure Positive End Expiratory 5 Pressure Peak Inspiratory Airway 23 Pressure Peak Inspiratory Airway 18 Pressure Peak Inspiratory Airway 29 Pressure Peak Inspiratory Airway 35 Pressure Peak Inspiratory Airway 35 Pressure Peak Inspiratory Airway 30 Pressure Peak Inspiratory Airway 38 Pressure Peak Inspiratory Airway 32 Pressure Peak Inspiratory Airway 32 Pressure Peak Inspiratory Airway 29 Pressure Peak Inspiratory Airway 30 Pressure Peak Inspiratory Airway 25 Pressure Results - Laboratory Findings CBC and BMP: 09/18/18 04:22 09/18/18 04:22 ABG ABG pH 7.45 pH Units (7.32-7.45) 09/18/18 04:51 ABG pCO2 58 mmHg (35-45) H 09/18/18 04:51 ABG pO2 173 mmHg (85-104) H 09/18/18 04:51 ABG O2 Saturation 100 % (95-98) H 09/18/18 04:51 PT/INR, D-dimer PT 12.2 Seconds (9.4-12.1) H 09/12/18 16:53 Abnormal lab findings: Abnormal lab results WBC 25.3 K/mcL (4.3-11.1) H 09/18/18 04:22 Hgb 9.1 g/dL (11.5-15.4) L 09/18/18 04:22 Hct 33.4 % (35.3-44.9) L 09/18/18 04:22 MCV 74.6 fL (83.0-100.0) L 09/18/18 04:22 MCH 20.3 pg (28.0-33.3) L 09/18/18 04:22 MCHC 27.2 g/dL (31.6-35.5) L 09/18/18 04:22 RDW 19.5 % (11.5-14.5) H 09/18/18 04:22 Plt Count 125 K/mcL (140-400) L 09/13/18 01:24 MPV 12.6 fL (9.4-12.4) H 09/16/18 03:07 Immature Gran % 4.3 % (0-4) H 09/11/18 04:10 8.0 % (0-4) H 09/10/18 05:39 4.0 % (0) H 09/18/18 04:22 23.0 K/mcL (1.6-8.9) H 09/18/18 04:22 0.4 K/mcL (0.6-4.6) L 09/17/18 04:14 Nucleated RBCs/100 WBC 2.1 /100 WBC (0) H 09/18/18 04:22 Present (Not Present) A 09/18/18 04:22 Slight Decrease (Normal) L 09/13/18 01:24 Present (Not Present) A 09/09/18 01:49 Immature Plt Fraction 10.4 % (1.1-6.1) H 09/15/18 07:26 1+ (Not Present) A 09/18/18 04:22 Present (Not Present) A 09/18/18 04:22 1+ (Not Present) A 09/10/18 05:39 1+ (Not Present) A 09/18/18 04:22 2+ (Not Present) A 09/18/18 04:22 Present (Not Present) A 09/17/18 04:14 PT 12.2 Seconds (9.4-12.1) H 09/12/18 16:53 Heparin Anti-Xa, Unfract 0.28 IU/mL (0.30-0.70) L 09/14/18 19:15 ABG pH 7.51 pH Units (7.32-7.45) H 09/14/18 04:40 ABG pCO2 58 mmHg (35-45) H 09/18/18 04:51 ABG pO2 173 mmHg (85-104) H 09/18/18 04:51 ABG HCO3 40 mEq/L (21-27) H 09/18/18 04:51 ABG Total CO2 42 mEq/L (20-26) H 09/18/18 04:51 ABG O2 Saturation 100 % (95-98) H 09/18/18 04:51 ABG Base Excess 14 mEq/L (-2 to 3) H 09/18/18 04:51 Sodium 157 mEq/L (136-145) H 09/18/18 04:22 Potassium 3.1 mEq/L (3.5-5.1) L 09/08/18 17:08 Chloride 113 mEq/L (98-107) H 09/18/18 04:22 Carbon Dioxide 35 mEq/L (23-29) H 09/18/18 04:22 BUN 59 mg/dL (8-23) H 09/18/18 04:22 Est GFR (Non-Af Amer) 54 (> 60) L 09/13/18 01:24 80 (6-26) H 09/18/18 04:22 Glucose 169 mg/dL (70-105) H 09/18/18 04:22 POC Glucose 155 mg/dL (70-99) H 09/18/18 00:10 344 (280-300) H 09/18/18 04:22 Calcium 8.5 mg/dL (8.6-10.3) L 09/13/18 01:24 0.2 mg/dL (0.3-1.0) L 09/09/18 14:05 AST 289 Units/L (13-39) H 09/15/18 16:09 ALT 404 Units/L (7-52) H 09/15/18 16:09 585 Units/L (140-271) H 09/18/18 08:21 18.65 ng/mL (< 0.04) H* 09/13/18 01:24 5.0 g/dL (6.4-8.9) L 09/18/18 08:21 2.9 g/dL (3.5-5.7) L 09/15/18 16:09 1.0 (1.1-2.2) L 09/15/18 16:09 6 Units/L (11-82) L 09/08/18 17:08 1.27 ng/mL (0.00-0.15) H 09/12/18 15:45 Ur Specific [place] < 1.005 (1.010-1.025) L 09/08/18 21:01 Vancomycin Trough 16 mcg/mL (5-10) H 09/17/18 16:11 Bystrom 0.3 mEq/L (0.6-1.2) L 09/09/18 01:49 DETECTED (Not Detect) A 09/10/18 09:40 - Microbiology Findings Microbiology Findings: Microbiology, Last 48 Hours 09/12/18 16:47 Blood Culture - Final Peripheral Venipuncture No growth. Final report. 09/12/18 16:47 Blood Culture - Final Peripheral Venipuncture No growth. Final report. - Clinical Findings Intake & Output: Intake & Output 09/17/18 09/18/18 09/18/18 23:59 07:59 15:59 Intake Total 1473.9 / 3732.9 1374.4 / 1659.4 285 / 1659.4 Output Total 1300 / 3110 750 / 750 Balance 173.9 / 622.9 624.4 / 909.4 285 / 909.4 Weight 72.1 kg Consult Discharge Plan - Plan Referrals: Sayda Villagran MD [Primary Care Provider] - - Attending Attestation I examined this patient and my medical decision-making was reviewed with the Resident Physician. I agree with the documented findings, disposition and treatment plan as described except to the extent set forth below. We independently had [id number] contact with the patient I spent 36min of Critical Care time with this patient. It involved decision mariam ing of high complexity to assess, manipulate, and support vital organ system failure and/or to prevent further life threatening deterioration of the patient's condition. The time involved in the performance of separately reportable procedures was not counted toward critical care time. Patient seen and examined at bedside Labs, radiology, chart personally reviewed. Management was reviewed during multidisciplinary critical care rounds. TOBACCO SAMPLER: Remains encephalopathic which is likely secondary to sepsis and metabolic derangements including hypernatremia head CT without acute process Pulm: Hypoxic Respiratory failure with PNA and AECOPD. On vent. Alkalotic today and adjusted it appears the tidal volume and been increased to help accommodate for her hunger -unfortunately has not been successful in decreasing respiratory rate or ventilator dyssynchrony with resultant increase in intrinsic PEEP. Unfo rtunately the patient will not be a candidate for spontaneous breathing trial a day and with progressive worsening overall her clinical status we have deeply sedated her to improve respiratory mechanics and facilitate ongoing therapies. Cards: Blood pressure monitored she has been persistently tachycardic and hypertensive today which is likely secondary to ongoing infectious process as well as discomfort while on vent planted more deeply sedated and will titrate beta merlyn GI: GI prophylaxis given Nutrition: Enteral nutrition per dietary recommendations Renal: Hypernatremia is worsening hold diuretic increased free water through orogastric tube and will start slow infusion of D5 with frequent monitoring UOP Monitored, Cont to Trend sCr and monitor Electrolytes. ID: Patient has a worsening pneumonia with and is at risk for atypical infections she is on broad-spectrum antibiotics including atypical coverage infectious disease has been consulted I have some concern for complicated parapneumonic process/effusion and will consult to interventional radiology for thoracentesis/guided chest tube placement for this reason and will send the fluid for analysis Heme/Onc: DVT prophylaxis given Endo: Glucose Monitored Integ/MSK: Skin Care per routine ICU Nursing Protocol to prevent ulcers. Lines: All lines examined without evidence of infection : Dispo: Monitor in ICU prognosis guarded CODE:[id number] <Orlando Vences - Last Filed: 09/18/18 15:28> Date of Encounter: 09/18/18 Time of Encounter: 07:30 Assessment and Plan (1) Acute respiratory failure with hypoxia Current Visit: Yes Status: Acute Assessment: On 09/11/18, patient developed worsening respiratory distress with accessory muscle use and required intubation Etiology unknown at this time; likely secondary to pneumonia, and adenovirus Chest CT on 09/15 demonstrated right-sided pleural effusion Plan: - Consult IR for evaluation for thoracentesis at this time as patient has not been improving on antibiotic therapy - Continue propofol and fentanyl for sedation. Increase as needed. May add Precedex if needed. - Continue IV Solu-Medrol 40 mg at this time (2) Hypernatremia Current Visit: Yes Status: Acute Sodium has been increasing over the past 4 days with peaked at 157 today Free water pushes were increased yesterday to 200 mL every 4 hours. These were increased to 400 mL every 4 hours today. Also started D5 and free water at a rate of 50 mL an hour Serial sodium checks (3) Hypertension Current Visit: Yes Status: Chronic Transition, 5 mg Lopressor pushes to 25 mg by mouth metoprolol 3 times a day as needed Qualifiers: Hypertension type: essential hypertension Qualified Code(s): I10 - Essential (primary) hypertension (4) Sepsis Current Visit: Yes Status: Acute - Currently meets 3 out of 4 sets grew to tachycardia, tachypnea, leukocytosis; has also had intermittent fevers during stay in ICU - Causative organism unknown; potential sources include pneumonia, pleural e ffusion, and tickborne illness - Reported history of a tick bite on the shoulder approximately 2 weeks ago with subsequent flulike illness - Respiratory infection panel positive for adenovirus - Blood cultures 2 from 09/08 are negative - Blood cultures 2 from 09/12 are negative - Blood cultures 2 from 09/14 are pending Plan: - Infectious disease consulted, appreciate recommendations - Plan to continue IV vancomycin and Zosyn (day 7), and doxycycline (day 4) at this time Qualifiers: Sepsis type: sepsis due to unspecified organism Qualified Code(s): A41.9 - Sepsis, unspecified organism (5) RLL pneumonia Current Visit: Yes Status: Acute As seen on chest x-ray and chest CTs Plan as above Qualifiers: Pneumonia type: due to unspecified organism Qualified Code(s): J18.1 - Lobar pneumonia, unspecified organism (6) NSTEMI (non-ST elevated myocardial infarction) Current Visit: Yes Status: Acute Initial troponin on 09/09 was less than 0.03 Subsequent troponins drawn on 09/12 were 10.43, 13.64, 19.07, 18.65 At that time the patient was started on a heparin drip and cardiology was consulted CT on 09/13/18 showed EF 25-30%, severe global and segmental LV systolic dysfunction, mild LV diastolic dysfunction Per cardiology, findings suggestive of Takotsubo cardiomyopathy Plan: - Heparin drip switched to DVT prophylaxis per the recommendations of cardiology - Continue aspirin and beta merlyn - Cardiology has signed off; If patients respiratory status improves and she is successfully extubated, will re-consult cardiology for a possible LHC (7) HFrEF (heart failure with reduced ejection fraction) Current Visit: Yes Status: Acute As seen on echo Cardiology following Qualifiers: Heart failure chronicity: unspecified Qualified Code(s): I50.20 - Unspecified systolic (congestive) heart failure (8) Tick bite Current Visit: Yes Status: Acute Patient reported to have tick bite approximately 2 weeks ago with a subsequent flulike symptoms of fever or myalgias Qualifiers: Encounter type: initial encounter Qualified Code(s): W57.XXXA - Bitten or stung by nonvenomous insect and other nonvenomous arthropods, initial encounter Subjective Principal diagnosis: NSTEMI, CMP, respiratory failure Interval history: Patient seen and examined at bedside. Patient sedated and remains intubated. She did have episodes of tachycardia and hypertension overnight which required multiple doses of Lopressor. Objective PUL Vital signs: Last Vital Signs Temp 102.2 F H 09/18/18 07:27 Pulse 119 09/18/18 07:00 Resp 24 09/18/18 07:00 BP 146/106 09/18/18 07:00 Pulse Ox 94 09/18/18 07:00 General appearance: no acute distress, asleep Eyes: nonicteric ENT: oropharynx dry Effort: normal Auscultation: bilateral: rales (Bases) Cardiovascular: other (Regular tachycardic) Gastrointestinal: soft, tender Integumentary: normal Extremities: no cyanosis, pink and warm, pulses normal, anasarca Musculoskeletal: no deformities unable to assess due to mental status Ventilator Settings Ventilator Settings: Ventilator Settings, Last 8 Hours Ventilator Tidal Volume 550 Setting Ventilator Tidal Volume 550 Setting Ventilator Tidal Volume 550 Setting Ventilator Tidal Volume 550 Setting Ventilator Tidal Volume 550 Setting Ventilator Tidal Volume 550 Setting Ventilator Tidal Volume 550 Setting Ventilator Tidal Volume 550 Setting Ventilator Tidal Volume 550 Setting Ventilator Tidal Volume 550 Setting Ventilator Tidal Volume 550 Setting Ventilator Tidal Volume 550 Setting Ventilator Tidal Volume 550 Setting Ventilator Respiratory Rate 10 Setting Ventilator Respiratory Rate 10 Setting Ventilator Respiratory Rate 10 Setting Ventilator Respiratory Rate 10 Setting Ventilator Respiratory Rate 10 Setting Ventilator Respiratory Rate 10 Setting Ventilator Respiratory Rate 10 Setting Ventilator Respiratory Rate 10 Setting Ventilator Respiratory Rate 10 Setting Ventilator Respiratory Rate 10 Setting Ventilator Respiratory Rate 10 Setting Ventilator Respiratory Rate 10 Setting Ventilator Respiratory Rate 10 Setting Actual Respiratory Rate 21 Actual Respiratory Rate 21 Actual Respiratory Rate 20 Actual Respiratory Rate 21 Actual Respiratory Rate 19 Actual Respiratory Rate 19 Actual Respiratory Rate 18 Actual Respiratory Rate 18 Actual Respiratory Rate 19 Actual Respiratory Rate 17 Actual Respiratory Rate 17 Positive End Expiratory 5 Pressure Positive End Expiratory 5 Pressure Positive End Expiratory 5 Pressure Positive End Expiratory 5 Pressure Positive End Expiratory 5 Pressure Positive End Expiratory 5 Pressure Positive End Expiratory 5 Pressure Positive End Expiratory 5 Pressure Positive End Expiratory 5 Pressure Positive End Expiratory 5 Pressure Positive End Expiratory 5 Pressure Positive End Expiratory 5 Pressure Positive End Expiratory 5 Pressure Peak Inspiratory Airway 38 Pressure Peak Inspiratory Airway 32 Pressure Peak Inspiratory Airway 32 Pressure Peak Inspiratory Airway 29 Pressure Peak Inspiratory Airway 30 Pressure Peak Inspiratory Airway 25 Pressure Peak Inspiratory Airway 24 Pressure Peak Inspiratory Airway 24 Pressure Peak Inspiratory Airway 24 Pressure Peak Inspiratory Airway 25 Pressure Peak Inspiratory Airway 23 Pressure Peak Inspiratory Airway 22 Pressure Results - Laboratory Findings CBC and BMP: 09/18/18 04:22 09/18/18 12:12 ABG ABG pH 7.45 pH Units (7.32-7.45) 09/18/18 04:51 ABG pCO2 58 mmHg (35-45) H 09/18/18 04:51 ABG pO2 173 mmHg (85-104) H 09/18/18 04:51 ABG O2 Saturation 100 % (95-98) H 09/18/18 04:51 PT/INR, D-dimer PT 12.2 Seconds (9.4-12.1) H 09/12/18 16:53 Abnormal lab findings: Abnormal lab results WBC 25.3 K/mcL (4.3-11.1) H 09/18/18 04:22 Hgb 9.1 g/dL (11.5-15.4) L 09/18/18 04:22 Hct 33.4 % (35.3-44.9) L 09/18/18 04:22 MCV 74.6 fL (83.0-100.0) L 09/18/18 04:22 MCH 20.3 pg (28.0-33.3) L 09/18/18 04:22 MCHC 27.2 g/dL (31.6-35.5) L 09/18/18 04:22 RDW 19.5 % (11.5-14.5) H 09/18/18 04:22 Plt Count 125 K/mcL (140-400) L 09/13/18 01:24 MPV 12.6 fL (9.4-12.4) H 09/16/18 03:07 Immature Gran % 4.3 % (0-4) H 09/11/18 04:10 8.0 % (0-4) H 09/10/18 05:39 4.0 % (0) H 09/18/18 04:22 23.0 K/mcL (1.6-8.9) H 09/18/18 04:22 0.4 K/mcL (0.6-4.6) L 09/17/18 04:14 Nucleated RBCs/100 WBC 2.1 /100 WBC (0) H 09/18/18 04:22 Present (Not Present) A 09/18/18 04:22 Slight Decrease (Normal) L 09/13/18 01:24 Present (Not Present) A 09/09/18 01:49 Immature Plt Fraction 10.4 % (1.1-6.1) H 09/15/18 07:26 1+ (Not Present) A 09/18/18 04:22 Present (Not Present) A 09/18/18 04:22 1+ (Not Present) A 09/10/18 05:39 1+ (Not Present) A 09/18/18 04:22 2+ (Not Present) A 09/18/18 04:22 Present (Not Present) A 09/17/18 04:14 PT 12.2 Seconds (9.4-12.1) H 09/12/18 16:53 Heparin Anti-Xa, Unfract 0.28 IU/mL (0.30-0.70) L 09/14/18 19:15 ABG pH 7.51 pH Units (7.32-7.45) H 09/14/18 04:40 ABG pCO2 58 mmHg (35-45) H 09/18/18 04:51 ABG pO2 173 mmHg (85-104) H 09/18/18 04:51 ABG HCO3 40 mEq/L (21-27) H 09/18/18 04:51 ABG Total CO2 42 mEq/L (20-26) H 09/18/18 04:51 ABG O2 Saturation 100 % (95-98) H 09/18/18 04:51 ABG Base Excess 14 mEq/L (-2 to 3) H 09/18/18 04:51 Sodium 157 mEq/L (136-145) H 09/18/18 04:22 Potassium 3.1 mEq/L (3.5-5.1) L 09/08/18 17:08 Chloride 113 mEq/L (98-107) H 09/18/18 04:22 Carbon Dioxide 35 mEq/L (23-29) H 09/18/18 04:22 BUN 59 mg/dL (8-23) H 09/18/18 04:22 Est GFR (Non-Af Amer) 54 (> 60) L 09/13/18 01:24 80 (6-26) H 09/18/18 04:22 Glucose 169 mg/dL (70-105) H 09/18/18 04:22 POC Glucose 155 mg/dL (70-99) H 09/18/18 00:10 344 (280-300) H 09/18/18 04:22 Calcium 8.5 mg/dL (8.6-10.3) L 09/13/18 01:24 0.2 mg/dL (0.3-1.0) L 09/09/18 14:05 AST 289 Units/L (13-39) H 09/15/18 16:09 ALT 404 Units/L (7-52) H 09/15/18 16:09 18.65 ng/mL (< 0.04) H* 09/13/18 01:24 5.8 g/dL (6.4-8.9) L 09/15/18 16:09 2.9 g/dL (3.5-5.7) L 09/15/18 16:09 1.0 (1.1-2.2) L 09/15/18 16:09 6 Units/L (11-82) L 09/08/18 17:08 1.27 ng/mL (0.00-0.15) H 09/12/18 15:45 Ur Specific [place] < 1.005 (1.010-1.025) L 09/08/18 21:01 Vancomycin Trough 16 mcg/mL (5-10) H 09/17/18 16:11 [place] 0.3 mEq/L (0.6-1.2) L 09/09/18 01:49 DETECTED (Not Detect) A 09/10/18 09:40 - Microbiology Findings Microbiology Findings: Microbiology, Last 48 Hours 09/12/18 16:47 Blood Culture - Final Peripheral Venipuncture No growth. Final report. 09/12/18 16:47 Blood Culture - Final Peripheral Venipuncture No growth. Final report. - Clinical Findings Intake & Output: Intake & Output 09/17/18 09/17/18 09/18/18 15:59 23:59 07:59 Intake Total 1341.0 / 3732.9 1473.9 / 3732.9 974.4 / 974.4 Output Total 1100 / 3110 1300 / 3110 750 / 750 Balance 241.0 / 622.9 173.9 / 622.9 224.4 / 224.4 Weight 72.1 kg
[2018-09-18] MEDS: Budesonide/Formoterol 160/4.5 1 PUFF INH IH SCH ×2 (07:44→19:56)
[2018-09-18] MEDS ORDERED: D5% in Water 1,000 ML IVC ONE (08:08)
[2018-09-18] MEDS: Aspirin 81 MG TAB.CHEW PO SCH (08:16)
[2018-09-18] MEDS: Docusate Oral Soln 100 MG/10 ML UDC GTUBE SCH ×2 (08:16→20:05)
[2018-09-18] MEDS: Chlorhexidine Rinse 15 ML MOUTHWASH MM SCH ×2 (08:17→20:06)
[2018-09-18] MEDS: D5% in Water 1,000 ML IVC SCH (08:45)
--- NOTE | 2018-09-18 09:38 | Infectious Disease Consult ---
Infectious Disease-Consult - Encounter Date/Time Date of Encounter: 09/18/18 Time of Encounter: 09:24 - Data of Consult Patient: new to practice Reason for consult: Intermittent fevers and persistent leukocytosis in the setting of sepsis, pneumonia, and possible tick-borne illness; on vancomycin, zosyn, and doxycycline; requesting recommendations on antibiotic therapy and further workup Consult date: 09/18/18 Requesting Physician: Joey Tinajero, Primary Care Provider: Sayda Villagran MD - HPI HPI: Ms. Grullon is a 68-year-old female with a past medical history of COPD, CVA, hyperlipidemia, hypertension, anxiety, depression, and bipolar disorder. The patient was admitted to the hospital 09/08/18 for community-acquired pneumonia. We are consulted 09/18/18 for further workup and treatment recommendations for intermittent fevers with persistent leukocytosis in the setting of sepsis pneumonia possible tickborne illness. Briefly, the patient is a 68-year-old female with a past medical history as stated above. The patient presented to the emergency department on the day of admission with complaints of fever, malaise, nausea, vomiting, cough, and fatigue. Upon arrival, she was febrile. She was otherwise hemodynamically stable. Laboratory studies revealed a normal white blood cell count, renal function, lactic acid, LFTs, and lipase. Urinalysis was negative for pyuria. She had a chest x-ray showed a right lower lobe pneumonia. Blood cultures were obtained 2 sets and were negative. She was started empirically on steroids, Rocephin, and Zithromax and was admitted to the hospital for further evaluation. Since admission, the patient has had a prolonged complicated hospital course. She had a CT of the chest 09/10/18 that showed a right middle lobe pneumonia and small right upper lobe pulmonary nodules. She required emergent intubation on 09/11/18 and has thus far been unable to be extubated. Her IV antibiotics were escalated to vancomycin and Zosyn on 09/12/18. Troponins came back elevated at 10.43, 13.64, 19.07, and 18.65. Cardiology was consulted who felt that this was likely to have considerable cardiomyopathy. She had transthoracic echo that showed an EF of 25-30%. Procalcitonin was mildly elevated at 1.27. On 09/14/18 she developed leukocytosis that has been persistently worsening. She had a CT of the head on 09/14/18 it was negative. Repeat blood cultures on 09/14/18 are no growth to date [address] of the chest, abdomen, and pelvis on 09/15/18 that showed stable right middle lobe pneumonia, moderate right pleural effusion, trace ascites, borderline mediastinal lymphadenopathy, and emphysematous changes. The ICU team was notified on 09/15/18 the patient had a previous tick bite so doxycycline was added to her antibiotic regimen. This morning, her WBC is up to 25,000 with 90% segmented neutrophils. Renal function remains normal. She has had persistent fevers with a MAXIMUM TEMPERATURE of 102.2 in the last 24 hours. She remains intubated and sedated. Currently, she is on vancomycin, Zosyn, and doxycycline. We have asked to evaluate and make further recommendations. During my exam today, the patient is unable to provide me with any review of systems information. No family is at the bedside so all of the information is obtained from nursing and the medical record. She is evaluated with nursing at the bedside. Garza is patent with clear yellow urine. She is having bowel movements. Tolerating tube feed. - ROS Review of Systems: Review of systems unobtainable from the patient due to sedation. - Results CBC & Chem 7: 09/18/18 04:22 09/18/18 12:12 - Exam Vitals: Temp Pulse Resp BP Pulse Ox 102.2 F H 96 25 112/76 95 09/18/18 07:27 09/18/18 08:54 09/18/18 08:54 09/18/18 08:54 09/18/18 08:54 Exam: Head: Atraumatic, normal inspection, normocephalic. Eye: Pupils are reactive, but sluggish and equal bilaterally, no scleral icterus noted. ENT: Mucous membranes dry. No odontogenic infection noted. Limited due to presence of ET tube. Neck: Normal inspection, no meningismus. Respiratory: Clear/diminished to auscultation. No rales, respiratory distress, rhonchi, or wheezes noted. Cardiovascular: Regular rate and rhythm, S1 and S2 audible. No murmurs, rubs, o r gallops. GI: Soft, nondistended, normal bowel sounds. NG tube with tube feeds infusing. Garza catheter draining clear yellow urine. Extremities:No joint swelling or tenderness noted. 1+ edema noted to the bilateral upper and bilateral lower extremities. Neurological: Sedated. Does not open eyes or follow commands. Skin: Dry, intact, warm. Normal color. No rashes. Aspirin [Ecotrin] 325 mg PO DAILY 09/08/18 [History] Budesonide/Formoterol 160/4.5 [Symbicort 160/4.5] 2 puff IH BIDR 09/08/18 [History] Ergocalciferol (VITAMIN D2) [Vitamin D2] 50,000 unit PO TUSA 09/08/18 [History] [place] Carbonate ER [Eskalith] 450 mg PO HS 09/08/18 [History] Omeprazole [PriLOSEC] 40 mg PO DAILY 09/08/18 [History] Paroxetine [Paxil] 20 mg PO DAILY 09/08/18 [History] Simvastatin [Zocor] 10 mg PO HS 09/08/18 [History] Tiotropium [place] [Spiriva Respimat] 2 puff IH DAILY 09/08/18 [History] Verapamil [Isoptin] 40 mg PO TID 09/08/18 [History] clonazePAM [Clonazepam] 0.25 mg PO QAM 09/08/18 [History] clonazePAM [Clonazepam] 0.5 mg PO HS 09/08/18 [History] hydroCHLOROthiazide [Hydrochlorothiazide] 25 mg PO DAILY 09/08/18 [History] traZODone [TraZODone] 25 mg PO HS 09/08/18 [History] Allergy/AdvReac Type Severity Reaction Status Date / Time acetaminophen Allergy Nausea Verified 08/14/17 11:05 [From Darvocet-N] Erythromycin Base Allergy Nausea Verified 08/14/17 11:05 propoxyphene Allergy Nausea Verified 08/14/17 11:05 [From Darvocet-N] - Assessment and Plan (1) Sepsis Current Visit: Yes Status: Acute The patient has to sepsis criteria including leukocytosis and fever. Likely secondary to right middle lobe pneumonia concerning for a bacterial component superimposed on viral illness. She may have also aspirated during emergent intubation. Worsening leukocytosis and persistent fevers. The patient is on steroids which could explain the patient's worsening leukocytosis, but not the fevers. Procalcitonin elevated at 1.27. Blood cultures drawn 09/12/18 are negative 2 sets. Repeat blood cultures drawn 09/14/18 are no growth to date [address] chest shows stable right middle lobe pneumonia. Review of the images concerning for bacterial component. CT abdomen and pelvis showed trace ascites, but no obvious acute infectious thalia ology. Qualifiers: Sepsis type: sepsis due to unspecified organism Qualified Code(s): A41.9 - Sepsis, unspecified organism SNOMED Code(s): 57234844 (2) CAP (community acquired pneumonia) Current Visit: Yes Status: Acute Causative organism: Adenovirus plus possible bacterial component as well. Location: Right middle lobe. Strep pneumococcal and legionella urinary antigens negative. MRSA screen was not obtained since this was a community-acquired pneumonia. Respiratory infectious panel positive as stated above. CT of the chest 09/15/18 showed a stable right middle lobe pneumonia. Review of the images revealed this is likely some sort of bacterial component as well based on the fact that it is very consolidated. Currently on vancomycin, Zosyn, and doxycycline. Qualifiers: Laterality: right Lung location: lower lobe of lung Qualified Code(s): J18.1 - Lobar pneumonia, unspecified organism SNOMED Code(s): 934822285 (3) Acute respiratory failure with hypoxia Current Visit: Yes Status: Acute Likely secondary to PNA and COPD. Intubated 09/11/18. Failed CPAP multiple times due to apnea. Pulmonology consulted and following. SNOMED Code(s): 55613984, 979015907 (4) ARDS (adult respiratory distress syndrome) Current Visit: Yes Status: Acute Per pulmonology, clinical picture concerning for ARDS. Management per the pulmonology team. SNOMED Code(s): 80129199, 69678560 (5) NSTEMI (non-ST elevated myocardial infarction) Current Visit: Yes Status: Acute Troponin peaked at 18. Cardiology consulted. Likely Takotsubo cardiomyopathy. SNOMED Code(s): 37339564 (6) HFrEF (heart failure with reduced ejection fraction) Current Visit: Yes Status: Acute TTE showed an EF of 25-30%. Cardiology consulted. Qualifiers: Heart failure chronicity: unspecified Qualified Code(s): I50.20 - Unspecified systolic (congestive) heart failure SNOMED Code(s): 064499540 (7) Tick bite Current Visit: Yes Status: Acute Per family report, patient had an embedded tick a few weeks prior to admission. Reported generalized fatigue and malaise and fevers. Low index of suspicion for tick borne illness at this point given that the nilda foote did not have a leukopenia and her LFTs were normal upon admission to the hospital. Currently on doxycycline and continues to have fevers and leukocytosis. Qualifiers: Encounter type: initial encounter Qualified Code(s): W57.XXXA - Bitten or stung by nonvenomous insect and other nonvenomous arthropods, initial encounter SNOMED Code(s): 58596659, 343297633 (8) Hypernatremia Current Visit: Yes Status: Acute Etiology: Unclear. Management per the pulmonary/critical care team. Consider nephrology to evaluate. SNOMED Code(s): 694839753 (9) Hypertension Current Visit: Yes Status: Chronic Qualifiers: Hypertension type: essential hypertension Qualified Code(s): I10 - Essential (primary) hypertension SNOMED Code(s): 38523738 (10) COPD (chronic obstructive pulmonary disease) Current Visit: Yes Status: Chronic Qualifiers: COPD type: COPD with acute exacerbation Qualified Code(s): J44.1 - Chronic obstructive pulmonary disease with (acute) exacerbation SNOMED Code(s): 85200451 - Recommendations Recommendations: Repeat blood cultures 2 sets now. Check amylase, lipase, and LFTs. Check peripheral smear. Consider IR consultation for drainage of the pleural effusion. Consider tapering steroids if okay with the pulmonology team to see if this helps with leukocytosis. Consider nephrology to evaluate and assist with hypernatremia management. Discontinue doxycycline. Continue vancomycin IV. Pharmacy to dose. Goal trough approximately 15. Continue Zosyn 3.375 g IV every 8 hours. Duration of treatment depends on the clinical picture. Monitor renal function and for drug toxicity and dose adjust antibiotics. Contact and droplet precautions per CDC recommendations. Past Med Surg Social Fam HX - Past Medical History Medical history: arthritis, COPD, CVA, hyperlipidemia, hypertension Psychiatric history: anxiety, bipolar, depression, panic disorder - Past Surgical History Surgical History: appendectomy, , orthopedic, other Additional surgical history: cyst on ovary. right foot bunion - Social History Smoking Status: Current every day smoker Packs per day: 1.5 Smokeless Tobacco Status: No Alcohol use: none Drug use: none - Family History Mother History Unknown: Yes Father History Unknown: Yes Consult Discharge Plan - Plan Referrals: Sayda Villagran MD [Primary Care Provider] - - Attending Attestation I have personally performed a face to face evaluation on this patient. I have reviewed and agree with the care plan. History and Exam by me shows: This is an addendum to original report dictated by Ellyn Montemayor CNP. Please r efer to Ellyn's note for full detail. Patient is a 68-year-old woman who presented with acute respiratory failure secondary to viral pneumonia. Patient eventually went into respiratory distress possible ARDS and now has also a consolidative pneumonia likely a superimposed bacterial on viral. Patient's family also stated that she had a tick bite but there was no signs of tick bite illness. There was no elevated LFTs or thrombocytopenia or rash. Patient was started empirically on doxycycline and she was on vancomycin and Zosyn. We were evaluating the patient for further recommendations. Patient currently is sedated and intubated. She is not requiring any pressors. Rest of the review of system includes no residuals on tube feeding. No bedsores. Assessment and plan Sepsis Community acquired pneumonia causative organism not clear Acute respiratory failure with hypoxia ARDS Non-ST elevation ME with Takotsubo cardiomyopathy Recommendations Repeat blood cultures 2 sets now. Check amylase, lipase, and LFTs. Check peripheral smear. Consider IR consultation for drainage of the pleural effusion. Consider tapering steroids if okay with the pulmonology team to see if this helps with leukocytosis. Consider nephrology to evaluate and assist with hypernatremia management. Discontinue doxycycline. Continue vancomycin IV. Pharmacy to dose. Goal trough approximately 15. Continue Zosyn 3.375 g IV every 8 hours. Duration of treatment depends on the clinical picture. Monitor renal function and for drug toxicity and dose adjust antibiotics. Contact and droplet precautions per CDC recommendations.
[2018-09-18 10:31] LABS: Lactate Dehydrogenase 585 Units/L (140-271)
[2018-09-18 12:41] LABS: BUN/Creatinine Ratio 72 (6-26); Blood Urea Nitrogen 55 mg/dL (8-23); Calcium 9.1 mg/dL (8.6-10.3); Carbon Dioxide 36 mEq/L (23-29); Chloride 116 mEq/L (98-107); Glucose 140 mg/dL (70-105); Osmolality,Calculated 337 (280-300); Potassium 4.3 mEq/L (3.5-5.1); Sodium 155 mEq/L (136-145); eGFR For African Americans > 60 (> 60); eGFR For Non-African Americans > 60 (> 60)
[2018-09-18 14:16] LABS: Albumin 2.6 g/dL (3.5-5.7); Albumin/Globulin Ratio 1.2 (1.1-2.2); Bilirubin,Direct 0.2 mg/dL (0.0-0.2); Bilirubin,Indirect 0.3 mg/dL (0.0-1.2); Bilirubin,Total 0.5 mg/dL (0.3-1.0); Globulin 2.2 g/dL (2.4-3.5); Total Protein 4.8 g/dL (6.4-8.9)
[2018-09-18 16:11] LABS: Appearance of Pleural Fl Hazy (Clear)
[2018-09-18 16:16] LABS: RBC,Pleural Fluid 0.004 M/mcL
[2018-09-18 16:49] LABS: Glucose,Pleural Fluid 163 mg/dL (No Ref Range); LDH,Pleural Fluid 560 Units/L (No Ref Range); Total Protein,Pleural Fluid < 3.0 g/dL
[2018-09-19] MEDS: Artificial Tears SOLN 15 ML BOTTLE BOTH EYES SCH ×6 (00:33→20:03)
[2018-09-19] MEDS: Insulin Human Regular 100 UNIT in 0.9 % Sodium Chloride 100 ML IVC SCH (01:00)
[2018-09-19] MEDS: *HR* Metoprolol 5 MG/5 ML VIAL IVP SCH ×3 (01:15→13:43)
[2018-09-19 04:05] LABS: Red Cell Distribution Width 19.3 % (11.5-14.5)
[2018-09-19 04:07] LABS: Basophils % 0.1 %; Hematocrit 31.3 % (35.3-44.9); Hemoglobin 8.4 g/dL (11.5-15.4); Immature Granulocytes % 4.3 % (0-4); Lymphocytes # 0.5 K/mcL (0.6-4.6); Lymphocytes % 2.6 %; Mean Corpuscular HGB Conc 26.8 g/dL (31.6-35.5); Mean Corpuscular Hemoglobin 20.5 pg (28.0-33.3); Mean Corpuscular Volume 76.5 fL (83.0-100.0); Monocytes # 1.5 K/mcL (0.0-1.3); Monocytes % 7.3 %; Neutrophils # 17.3 K/mcL (1.6-8.9); Nucleated Red Blood Cells 0.9 /100 WBC (0); Platelet Count 327 K/mcL (140-400); Red Blood Count 4.09 M/mcL (3.82-4.97); Segmented Neutrophils % 85.7 %; White Blood Count 20.2 K/mcL (4.3-11.1)
[2018-09-19] MEDS: Ipratropium/Albuterol Neb 3 ML IH SCH ×5 (04:13→19:44)
[2018-09-19 04:16] LABS: Alanine Aminotransferase 321 Units/L (7-52); Albumin 2.9 g/dL (3.5-5.7); Albumin/Globulin Ratio 1.2 (1.1-2.2); Alkaline Phosphatase 47 Units/L (34-104); Aspartate Amino Transferase 104 Units/L (13-39); BUN/Creatinine Ratio 76 (6-26); Bilirubin,Total 0.5 mg/dL (0.3-1.0); Blood Urea Nitrogen 42 mg/dL (8-23); Calcium 9.3 mg/dL (8.6-10.3); Carbon Dioxide 34 mEq/L (23-29); Chloride 110 mEq/L (98-107); Globulin 2.4 g/dL (2.4-3.5); Glucose 108 mg/dL (70-105); Osmolality,Calculated 321 (280-300); Potassium 4.7 mEq/L (3.5-5.1); Sodium 150 mEq/L (136-145); Total Protein 5.3 g/dL (6.4-8.9); eGFR For African Americans > 60 (> 60); eGFR For Non-African Americans > 60 (> 60)
[2018-09-19 04:27] LABS: Anisocytosis 1+ (Not Present); Hypochromasia Present (Not Present); Large Platelets Present (Not Present); Platelet Estimate Normal (Normal)
[2018-09-19] MEDS: D5% in Water 1,000 ML IVC SCH (05:08)
[2018-09-19] MEDS: Piperacillin/Tazobactam 3.375 GM in 0.9 % Sodium Chloride Mini Bag 100 ML IVPB SCH ×3 (05:09→20:02)
[2018-09-19] MEDS: Pantoprazole 40 MG VIAL IVP SCH (05:11)
[2018-09-19] MEDS: MethylPREDNISolone 40 MG/ML VIAL IVP SCH ×2 (05:11→16:56)
[2018-09-19 05:12] LABS: ABG Base Excess 12 mEq/L (-2 to 3); ABG HCO3 39 mEq/L (21-27); ABG Oxygen Saturation 89 % (95-98); ABG PCO2 67 mmHg (35-45); ABG PH 7.37 pH Units (7.32-7.45); ABG PO2 60 mmHg (85-104); ABG TCO2 41 mEq/L (20-26); Blood Gas Modality ASSIST CONTROL; Blood Gas PEEP 5 cm H2O; Blood Gas VT 460 cc
[2018-09-19] MEDS: *HR* Heparin 5,000 UNIT/ML VIAL SQ SCH (06:13)
[2018-09-19] MEDS: FentaNYL (PF) 1,000 MCG in 0.9 % Sodium Chloride 80 ML IVC SCH ×3 (06:34→23:08)
[2018-09-19] MEDS: Budesonide/Formoterol 160/4.5 1 PUFF INH IH SCH ×2 (07:30→19:44)
--- NOTE | 2018-09-19 08:41 | Pulmonology Progress Note ---
<WhitLuigi W - Last Filed: 09/19/18 10:24> Date of Encounter: 09/19/18 Objective PUL Vital signs: Last Vital Signs Temp 98.9 F 09/19/18 07:15 Pulse 107 09/19/18 09:00 Resp 17 09/19/18 09:15 BP 135/75 09/19/18 09:15 Pulse Ox 92 09/19/18 09:15 Ventilator Settings Ventilator Settings: Ventilator Settings, Last 8 Hours Ventilator Tidal Volume 460 Setting Ventilator Tidal Volume 460 Setting Ventilator Tidal Volume 460 Setting Ventilator Tidal Volume 460 Setting Ventilator Tidal Volume 460 Setting Ventilator Tidal Volume 460 Setting Ventilator Tidal Volume 460 Setting Ventilator Tidal Volume 460 Setting Ventilator Tidal Volume 460 Setting Ventilator Tidal Volume 460 Setting Ventilator Tidal Volume 460 Setting Ventilator Tidal Volume 460 Setting Ventilator Respiratory Rate 16 Setting Ventilator Respiratory Rate 10 Setting Ventilator Respiratory Rate 10 Setting Ventilator Respiratory Rate 10 Setting Ventilator Respiratory Rate 10 Setting Ventilator Respiratory Rate 10 Setting Ventilator Respiratory Rate 10 Setting Ventilator Respiratory Rate 10 Setting Ventilator Respiratory Rate 10 Setting Ventilator Respiratory Rate 10 Setting Ventilator Respiratory Rate 10 Setting Ventilator Respiratory Rate 10 Setting Ventilator Respiratory Rate 10 Setting Actual Respiratory Rate 17 Actual Respiratory Rate 20 Actual Respiratory Rate 20 Actual Respiratory Rate 20 Actual Respiratory Rate 20 Actual Respiratory Rate 18 Actual Respiratory Rate 18 Actual Respiratory Rate 17 Actual Respiratory Rate 17 Actual Respiratory Rate 17 Actual Respiratory Rate 17 Positive End Expiratory 5 Pressure Positive End Expiratory 5 Pressure Positive End Expiratory 5 Pressure Positive End Expiratory 5 Pressure Positive End Expiratory 5 Pressure Positive End Expiratory 5 Pressure Positive End Expiratory 5 Pressure Positive End Expiratory 5 Pressure Positive End Expiratory 5 Pressure Positive End Expiratory 5 Pressure Positive End Expiratory 5 Pressure Positive End Expiratory 5 Pressure Peak Inspiratory Airway 22 Pressure Peak Inspiratory Airway 21 Pressure Peak Inspiratory Airway 26 Pressure Peak Inspiratory Airway 23 Pressure Peak Inspiratory Airway 23 Pressure Peak Inspiratory Airway 19 Pressure Peak Inspiratory Airway 20 Pressure Peak Inspiratory Airway 18 Pressure Peak Inspiratory Airway 18 Pressure Peak Inspiratory Airway 19 Pressure Peak Inspiratory Airway 18 Pressure Results - Laboratory Findings CBC and BMP: 09/19/18 03:23 09/19/18 03:23 ABG ABG pH 7.37 pH Units (7.32-7.45) 09/19/18 05:09 ABG pCO2 67 mmHg (35-45) H 09/19/18 05:09 ABG pO2 60 mmHg (85-104) L 09/19/18 05:09 ABG O2 Saturation 89 % (95-98) L 09/19/18 05:09 PT/INR, D-dimer PT 12.2 Seconds (9.4-12.1) H 09/12/18 16:53 Abnormal lab findings: Abnormal lab results WBC 20.2 K/mcL (4.3-11.1) H 09/19/18 03:23 Hgb 8.4 g/dL (11.5-15.4) L 09/19/18 03:23 Hct 31.3 % (35.3-44.9) L 09/19/18 03:23 MCV 76.5 fL (83.0-100.0) L 09/19/18 03:23 MCH 20.5 pg (28.0-33.3) L 09/19/18 03:23 MCHC 26.8 g/dL (31.6-35.5) L 09/19/18 03:23 RDW 19.3 % (11.5-14.5) H 09/19/18 03:23 Plt Count 125 K/mcL (140-400) L 09/13/18 01:24 MPV 12.6 fL (9.4-12.4) H 09/16/18 03:07 Immature Gran % 4.3 % (0-4) H 09/19/18 03:23 8.0 % (0-4) H 09/10/18 05:39 4.0 % (0) H 09/18/18 04:22 17.3 K/mcL (1.6-8.9) H 09/19/18 03:23 0.5 K/mcL (0.6-4.6) L 09/19/18 03:23 1.5 K/mcL (0.0-1.3) H 09/19/18 03:23 Nucleated RBCs/100 WBC 0.9 /100 WBC (0) H 09/19/18 03:23 Present (Not Present) A 09/18/18 04:22 Slight Decrease (Normal) L 09/13/18 01:24 Present (Not Present) A 09/19/18 03:23 Immature Plt Fraction 10.4 % (1.1-6.1) H 09/15/18 07:26 1+ (Not Present) A 09/18/18 04:22 Present (Not Present) A 09/19/18 03:23 1+ (Not Present) A 09/10/18 05:39 1+ (Not Present) A 09/18/18 04:22 1+ (Not Present) A 09/19/18 03:23 Present (Not Present) A 09/17/18 04:14 PT 12.2 Seconds (9.4-12.1) H 09/12/18 16:53 Heparin Anti-Xa, Unfract 0.28 IU/mL (0.30-0.70) L 09/14/18 19:15 ABG pH 7.51 pH Units (7.32-7.45) H 09/14/18 04:40 ABG pCO2 67 mmHg (35-45) H 09/19/18 05:09 ABG pO2 60 mmHg (85-104) L 09/19/18 05:09 ABG HCO3 39 mEq/L (21-27) H 09/19/18 05:09 ABG Total CO2 41 mEq/L (20-26) H 09/19/18 05:09 ABG O2 Saturation 89 % (95-98) L 09/19/18 05:09 ABG Base Excess 12 mEq/L (-2 to 3) H 09/19/18 05:09 Sodium 150 mEq/L (136-145) H 09/19/18 03:23 Potassium 3.1 mEq/L (3.5-5.1) L 09/08/18 17:08 Chloride 110 mEq/L (98-107) H 09/19/18 03:23 Carbon Dioxide 34 mEq/L (23-29) H 09/19/18 03:23 BUN 42 mg/dL (8-23) H 09/19/18 03:23 0.55 mg/dL (0.60-1.20) L 09/19/18 03:23 Est GFR (Non-Af Amer) 54 (> 60) L 09/13/18 01:24 76 (6-26) H 09/19/18 03:23 Glucose 108 mg/dL (70-105) H 09/19/18 03:23 POC Glucose 172 mg/dL (70-99) H 09/19/18 00:14 321 (280-300) H 09/19/18 03:23 Calcium 8.5 mg/dL (8.6-10.3) L 09/13/18 01:24 0.2 mg/dL (0.3-1.0) L 09/09/18 14:05 AST 104 Units/L (13-39) H 09/19/18 03:23 ALT 321 Units/L (7-52) H 09/19/18 03:23 585 Units/L (140-271) H 09/18/18 08:21 18.65 ng/mL (< 0.04) H* 09/13/18 01:24 5.3 g/dL (6.4-8.9) L 09/19/18 03:23 2.9 g/dL (3.5-5.7) L 09/19/18 03:23 2.2 g/dL (2.4-3.5) L 09/18/18 13:35 1.0 (1.1-2.2) L 09/15/18 16:09 6 Units/L (11-82) L 09/08/18 17:08 1.27 ng/mL (0.00-0.15) H 09/12/18 15:45 Ur Specific [place] < 1.005 (1.010-1.025) L 09/08/18 21:01 Pleural Appearance Hazy (Clear) A 09/18/18 08:20 Pleural RBC 0.004 M/mcL (0.000-0.002) H 09/18/18 08:20 Vancomycin Trough 16 mcg/mL (5-10) H 09/17/18 16:11 Epworth 0.3 mEq/L (0.6-1.2) L 09/09/18 01:49 DETECTED (Not Detect) A 09/10/18 09:40 - Microbiology Findings Microbiology Findings: Microbiology, Last 48 Hours 09/18/18 08:20 Body Fluid Culture - Preliminary Pleural Fluid 09/18/18 13:44 Blood Culture - Preliminary Peripheral Venipuncture Culture is incubating and being continuously monitored for growth. Final report to follow. 09/18/18 13:35 Blood Culture - Preliminary Peripheral Venipuncture Culture is incubating and being continuously monitored for growth. Final report to follow. 09/12/18 16:47 Blood Culture - Final Peripheral Venipuncture No growth. Final report. 09/12/18 16:47 Blood Culture - Final Peripheral Venipuncture No growth. Final report. - Clinical Findings Intake & Output: Intake & Output 09/18/18 09/19/18 09/19/18 23:59 07:59 15:59 Intake Total 1728.1 / 4667.4 2567.6 / 3389.6 822.0 / 3389.6 Output Total 1165 / 2115 600 / 600 Balance 563.1 / 2552.4 1967.6 / 2789.6 822.0 / 2789.6 Weight 75.6 kg Consult Discharge Plan - Plan Referrals: Sayda Villagran MD [Primary Care Provider] - - Attending Attestation I examined this patient and my medical decision-making was reviewed with the Resident Physician. I agree with the documented findings, disposition and treatment plan as described except to the extent set forth below. We independently had [id number] contact with the patient I spent 33min of Critical Care time with this patient. It involved decision making of high complexity to assess, manipulate, and support vital organ system failure and/or to prevent further life threatening deterioration of the patient's condition. The time involved in the performance of separately reportable procedures was not counted toward critical care time. Patient seen and examined at bedside Labs, radiology, chart personally reviewed. Management was reviewed during multidisciplinary critical care rounds. 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 Plan to repeat Head CT today and if nothing acute => MRI. Consider Neuro consult based upon findings. Will cont deeper sedation to maximize vent synchrony Pulm: Acute hypoxic Hypercapnic Respiratory failure s/t PNA/AECOPD complicated by hydrostatic pulmonary edema. Additionally patient has right parapneumonic effusion s/p Thoracentesis. ABG today notable for worsening gas exchange likley s/t worsening edema (diuresis on hold for hypernatremia) or possibly infection. She is not a candidate for SBT/CPAP today because of respiratory/neurological status. Cont Steroids and Bronchodilators for AECOPD. Cards: NSTEMI seen by Cardiology felt likely (Stress induced cardiomyopathy) conservative mangament for now. Cont Statin and BB. GI: GI propylaxis given cont bowel regimen Nutrition: Cont enteral nutrition per Dietary recs Renal: Hypernatremia improving. Stop D5W and cont free H20 flushes through OGT. Ideally can resatrt diuretic in next 24 hours for respiratory status UOP Monitored, Cont to Trend sCr and monitor Electrolytes. ID: Treating for PNA. Cultures negative thus far. She has also been recently exposed to tick bite and is being covered for potential tick born illnesses. Appreciate ID consultation. Encouragingly WBC count is lower today for first time. Will cont broad specturm ABx for now. Heme/Onc: Mild anemia stable. Plts stable. cont DVT prophylaxis Endo: Glucose Monitored and acceptable cont bolus dosing per protocol Integ/MSK: Skin Care per routine ICU Nursing Protocol to prevent ulcers. Lines: All lines examined without evidence of infection : Dispo: Cont to monitor in ICU for critical illness CODE: DNAR. Prognosis poor. Son Updated at bedside today. All questions answered <Orlando Vences - Last Filed: 09/19/18 11:34> Date of Encounter: 09/19/18 Time of Encounter: 08:38 Assessment and Plan (1) Acute respiratory failure with hypoxia Current Visit: Yes Status: Acute Assessment: On 09/11/18, patient developed worsening respiratory distress with accessory muscle use and required intubation Etiology unknown at this time; likely secondary to pneumonia, and adenovirus Chest CT on 09/15 demonstrated right-sided pleural effusion - Underwent diagnostic thoracentesis with IR yesterday which revealed exudative pleural effusion. Culture pending - Infectious disease is on board to assist with management of antibiotics Plan: - Continue propofol and fentanyl for sedation. Increase as needed. May add Precedex if needed. - Continue IV Solu-Medrol 40 mg at this time (2) Hypernatremia Current Visit: Yes Status: Acute Improved at 150 today Free water pushes 400 mL every 4 hours Stop D5 and water Serial sodium checks (3) Hypertension Current Visit: Yes Status: Chronic Transition, 5 mg Lopressor pushes to 25 mg by mouth metoprolol 3 times a day as needed Qualifiers: Hypertension type: essential hypertension Qualified Code(s): I10 - Essential (primary) hypertension (4) Sepsis Current Visit: Yes Status: Acute - Currently meets 3 out of 4 sets grew to tachycardia, tachypnea, leukocytosis; has also had intermittent fevers during stay in ICU - Causative organism unknown; potential sources include pneumonia, pleural effusion, and tickborne illness - Reported history of a tick bite on the shoulder approximately 2 weeks ago with subsequent flulike illness - Non-thrombocytopenic. LFTs wnl. Tick borne illness less likely - Respiratory infection panel positive for adenovirus - Blood cultures 2 from 09/08 are negative - Blood cultures 2 from 09/12 are negative - Blood cultures 2 from 09/14 are pending Plan: - Infectious disease consulted, appreciate recommendations - Plan to continue IV vancomycin and Zosyn (day 7) Qualifiers: Sepsis type: sepsis due to unspecified organism Qualified Code(s): A41.9 - Sepsis, unspecified organism (5) RLL pneumonia Current Visit: Yes Status: Acute As seen on chest x-ray and chest CTs Plan as above Qualifiers: Pneumonia type: due to unspecified organism Qualified Code(s): J18.1 - Lobar pneumonia, unspecified organism (6) NSTEMI (non-ST elevated myocardial infarction) Current Visit: Yes Status: Acute Initial troponin on 09/09 was less than 0.03 Subsequent troponins drawn on 09/12 were 10.43, 13.64, 19.07, 18.65 At that time the patient was started on a heparin drip and cardiology was consulted CT on 09/13/18 showed EF 25-30%, severe global and segmental LV systolic dysf unction, mild LV diastolic dysfunction Per cardiology, findings suggestive of Takotsubo cardiomyopathy Plan: - Heparin drip switched to DVT prophylaxis per the recommendations of cardiology - Continue aspirin and beta merlyn - Cardiology has signed off; If patients respiratory status improves and she is successfully extubated, will re-consult cardiology for a possible LHC (7) HFrEF (heart failure with reduced ejection fraction) Current Visit: Yes Status: Acute As seen on echo Cardiology following Qualifiers: Heart failure chronicity: unspecified Qualified Code(s): I50.20 - Unspecified systolic (congestive) heart failure (8) Tick bite Current Visit: Yes Status: Acute Patient reported to have tick bite approximately 2 weeks ago with a subsequent flulike symptoms of fever or myalgias Qualifiers: Encounter type: initial encounter Qualified Code(s): W57.XXXA - Bitten or stung by nonvenomous insect and other nonvenomous arthropods, initial encounter Subjective Principal diagnosis: NSTEMI, CMP, respiratory failure Interval history: Patient seen and examined at bedside. Patient sedated and remains intubated. No acute events overnight Objective PUL Vital signs: Last Vital Signs Temp 98.9 F 09/19/18 07:15 Pulse 101 09/19/18 08:00 Resp 20 09/19/18 08:00 BP 134/79 09/19/18 08:00 Pulse Ox 91 09/19/18 08:00 General appearance: no acute distress, asleep Eyes: nonicteric ENT: oropharynx moist Effort: normal Auscultation: right: diminished breath sounds, rales (base) Cardiovascular: regular rate and rhythm Gastrointestinal: soft, non-tender, non-distended Integumentary: normal Extremities: no cyanosis, no edema, no clubbing, pink and warm, pulses normal, no ischemia or petechiae Musculoskeletal: no deformities unable to assess due to mental status Ventilator Settings Ventilator Settings: Ventilator Settings, Last 8 Hours Ventilator Tidal Volume 460 Setting Ventilator Tidal Volume 460 Setting Ventilator Tidal Volume 460 Setting Ventilator Tidal Volume 460 Setting Ventilator Tidal Volume 460 Setting Ventilator Tidal Volume 460 Setting Ventilator Tidal Volume 460 Setting Ventilator Tidal Volume 460 Setting Ventilator Tidal Volume 460 Setting Ventilator Tidal Volume 460 Setting Ventilator Tidal Volume 460 Setting Ventilator Respiratory Rate 10 Setting Ventilator Respiratory Rate 10 Setting Ventilator Respiratory Rate 10 Setting Ventilator Respiratory Rate 10 Setting Ventilator Respiratory Rate 10 Setting Ventilator Respiratory Rate 10 Setting Ventilator Respiratory Rate 10 Setting Ventilator Respiratory Rate 10 Setting Ventilator Respiratory Rate 10 Setting Ventilator Respiratory Rate 10 Setting Ventilator Respiratory Rate 10 Setting Actual Respiratory Rate 20 Actual Respiratory Rate 20 Actual Respiratory Rate 18 Actual Respiratory Rate 18 Actual Respiratory Rate 17 Actual Respiratory Rate 17 Actual Respiratory Rate 17 Actual Respiratory Rate 17 Actual Respiratory Rate 17 Actual Respiratory Rate 18 Positive End Expiratory 5 Pressure Positive End Expiratory 5 Pressure Positive End Expiratory 5 Pressure Positive End Expiratory 5 Pressure Positive End Expiratory 5 Pressure Positive End Expiratory 5 Pressure Positive End Expiratory 5 Pressure Positive End Expiratory 5 Pressure Positive End Expiratory 5 Pressure Positive End Expiratory 5 Pressure Positive End Expiratory 5 Pressure Peak Inspiratory Airway 26 Pressure Peak Inspiratory Airway 23 Pressure Peak Inspiratory Airway 19 Pressure Peak Inspiratory Airway 20 Pressure Peak Inspiratory Airway 18 Pressure Peak Inspiratory Airway 18 Pressure Peak Inspiratory Airway 19 Pressure Peak Inspiratory Airway 18 Pressure Peak Inspiratory Airway 16 Pressure Peak Inspiratory Airway 16 Pressure Results - Laboratory Findings CBC and BMP: 09/19/18 03:23 09/19/18 03:23 ABG ABG pH 7.37 pH Units (7.32-7.45) 09/19/18 05:09 ABG pCO2 67 mmHg (35-45) H 09/19/18 05:09 ABG pO2 60 mmHg (85-104) L 09/19/18 05:09 ABG O2 Saturation 89 % (95-98) L 09/19/18 05:09 PT/INR, D-dimer PT 12.2 Seconds (9.4-12.1) H 09/12/18 16:53 Abnormal lab findings: Abnormal lab results WBC 20.2 K/mcL (4.3-11.1) H 09/19/18 03:23 Hgb 8.4 g/dL (11.5-15.4) L 09/19/18 03:23 Hct 31.3 % (35.3-44.9) L 09/19/18 03:23 MCV 76.5 fL (83.0-100.0) L 09/19/18 03:23 MCH 20.5 pg (28.0-33.3) L 09/19/18 03:23 MCHC 26.8 g/dL (31.6-35.5) L 09/19/18 03:23 RDW 19.3 % (11.5-14.5) H 09/19/18 03:23 Plt Count 125 K/mcL (140-400) L 09/13/18 01:24 MPV 12.6 fL (9.4-12.4) H 09/16/18 03:07 Immature Gran % 4.3 % (0-4) H 09/19/18 03:23 8.0 % (0-4) H 09/10/18 05:39 4.0 % (0) H 09/18/18 04:22 17.3 K/mcL (1.6-8.9) H 09/19/18 03:23 0.5 K/mcL (0.6-4.6) L 09/19/18 03:23 1.5 K/mcL (0.0-1.3) H 09/19/18 03:23 Nucleated RBCs/100 WBC 0.9 /100 WBC (0) H 09/19/18 03:23 Present (Not Present) A 09/18/18 04:22 Slight Decrease (Normal) L 09/13/18 01:24 Present (Not Present) A 09/19/18 03:23 Immature Plt Fraction 10.4 % (1.1-6.1) H 09/15/18 07:26 1+ (Not Present) A 09/18/18 04:22 Present (Not Present) A 09/19/18 03:23 1+ (Not Present) A 09/10/18 05:39 1+ (Not Present) A 09/18/18 04:22 1+ (Not Present) A 09/19/18 03:23 Present (Not Present) A 09/17/18 04:14 PT 12.2 Seconds (9.4-12.1) H 09/12/18 16:53 Heparin Anti-Xa, Unfract 0.28 IU/mL (0.30-0.70) L 09/14/18 19:15 ABG pH 7.51 pH Units (7.32-7.45) H 09/14/18 04:40 ABG pCO2 67 mmHg (35-45) H 09/19/18 05:09 ABG pO2 60 mmHg (85-104) L 09/19/18 05:09 ABG HCO3 39 mEq/L (21-27) H 09/19/18 05:09 ABG Total CO2 41 mEq/L (20-26) H 09/19/18 05:09 ABG O2 Saturation 89 % (95-98) L 09/19/18 05:09 ABG Base Excess 12 mEq/L (-2 to 3) H 09/19/18 05:09 Sodium 150 mEq/L (136-145) H 09/19/18 03:23 Potassium 3.1 mEq/L (3.5-5.1) L 09/08/18 17:08 Chloride 110 mEq/L (98-107) H 09/19/18 03:23 Carbon Dioxide 34 mEq/L (23-29) H 09/19/18 03:23 BUN 42 mg/dL (8-23) H 09/19/18 03:23 0.55 mg/dL (0.60-1.20) L 09/19/18 03:23 Est GFR (Non-Af Amer) 54 (> 60) L 09/13/18 01:24 76 (6-26) H 09/19/18 03:23 Glucose 108 mg/dL (70-105) H 09/19/18 03:23 POC Glucose 172 mg/dL (70-99) H 09/19/18 00:14 321 (280-300) H 09/19/18 03:23 Calcium 8.5 mg/dL (8.6-10.3) L 09/13/18 01:24 0.2 mg/dL (0.3-1.0) L 09/09/18 14:05 AST 104 Units/L (13-39) H 09/19/18 03:23 ALT 321 Units/L (7-52) H 09/19/18 03:23 585 Units/L (140-271) H 09/18/18 08:21 18.65 ng/mL (< 0.04) H* 09/13/18 01:24 5.3 g/dL (6.4-8.9) L 09/19/18 03:23 2.9 g/dL (3.5-5.7) L 09/19/18 03:23 2.2 g/dL (2.4-3.5) L 09/18/18 13:35 1.0 (1.1-2.2) L 09/15/18 16:09 6 Units/L (11-82) L 09/08/18 17:08 1.27 ng/mL (0.00-0.15) H 09/12/18 15:45 Ur Specific [place] < 1.005 (1.010-1.025) L 09/08/18 21:01 Pleural Appearance Hazy (Clear) A 09/18/18 08:20 Pleural RBC 0.004 M/mcL (0.000-0.002) H 09/18/18 08:20 Vancomycin Trough 16 mcg/mL (5-10) H 09/17/18 16:11 Epworth 0.3 mEq/L (0.6-1.2) L 09/09/18 01:49 DETECTED (Not Detect) A 09/10/18 09:40 - Microbiology Findings Microbiology Findings: Microbiology, Last 48 Hours 09/18/18 08:20 Body Fluid Culture - Preliminary Pleural Fluid 09/18/18 13:44 Blood Culture - Preliminary Peripheral Venipuncture Culture is incubating and being continuously mo nitored for growth. Final report to follow. 09/18/18 13:35 Blood Culture - Preliminary Peripheral Venipuncture Culture is incubating and being continuously monitored for growth. Final report to follow. 09/12/18 16:47 Blood Culture - Final Peripheral Venipuncture No growth. Final report. 09/12/18 16:47 Blood Culture - Final Peripheral Venipuncture No growth. Final report. - Diagnostic Findings Chest x-ray: report reviewed, image reviewed - Clinical Findings Intake & Output: Intake & Output 09/18/18 09/19/18 09/19/18 23:59 07:59 15:59 Intake Total 1728.1 / 4667.4 2567.6 / 2967.6 400 / 2967.6 Output Total 1165 / 2115 600 / 600 Balance 563.1 / 2552.4 1967.6 / 2367.6 400 / 2367.6 Weight 75.6 kg
[2018-09-19] MEDS ORDERED: D5% in Water 1,000 ML IVC SCH (08:45)
[2018-09-19] MEDS: Docusate Oral Soln 100 MG/10 ML UDC GTUBE SCH ×2 (08:50→20:02)
[2018-09-19] MEDS: Chlorhexidine Rinse 15 ML MOUTHWASH MM SCH ×2 (08:50→20:02)
[2018-09-19] MEDS: Aspirin 81 MG TAB.CHEW PO SCH (08:51)
--- NOTE | 2018-09-19 11:39 | Event Note ---
Date of Encounter: 09/19/18 Time of Encounter: 11:35 CT head was obtained for agonal breathing with ventilator. Results were called to this provider by radiologist Dr Toledo. CT head showed left infarct in the territory of the MCA with no mass effect. Also hyperdensity which may represent motion artifact vs subarachnoid hemorrhage. Made a phone call to pt's son Jona at 11:22, along with Maria Teresa JEFFERSON and Dr Sherman. Discussed the results of the head CT and poor prognosis. Jona reported he is leaning towards a palliative approach at this time, but would like evaluation by neurologist. Consult placed.
[2018-09-19 12:59] LABS: BUN/Creatinine Ratio 73 (6-26); Blood Urea Nitrogen 43 mg/dL (8-23); Calcium 9.1 mg/dL (8.6-10.3); Carbon Dioxide 33 mEq/L (23-29); Chloride 110 mEq/L (98-107); Glucose 150 mg/dL (70-105); Osmolality,Calculated 314 (280-300); Sodium 145 mEq/L (136-145); eGFR For African Americans > 60 (> 60); eGFR For Non-African Americans > 60 (> 60)
--- NOTE | 2018-09-19 13:52 | Neurology - Consult Note ---
Date of Encounter: 09/19/18 Time of Encounter: 13:41 Assessment and Plan (1) Cerebral infarction, left hemisphere Current Visit: Yes Status: Acute Patient has unfortunately experienced a left cerebral hemispheric infarct. Presumably this is due to cardioembolic event due to her low ejection fraction with possible clot formation in the left ventricle. She likely also has metabolic encephalopathy due to poor respiratory function, and sepsis. At this time family is contemplating palliative care. Considering her current medical condition along with the new left cerebral infarct should be further debilitated, will likely have speech and language difficulty, and mobile poor rehabilitation candidate. Further stroke workup will be completed pending the family's decision for aggressive intervention versus palliative care. History of Present Illness HPI: The chart was reviewed, patient was seen and examined. Patient is a 68-year-old woman who was admitted to [facility] on 09/07/2018 secondary to respiratory difficulty. Ultimately she has been diagnosed with adult respiratory distress syndrome, and NSTEMI, with a 25% ejection fraction. She has been increasingly less responsive and is currently intubated. CT scan of the brain was ordered and reveals an area of what appears to be acute infarct in the left cerebral hemisphere, in the territory of the middle cerebral artery. There is also questionable hemorrhagic transformation. Neurology is requested for further input and prognostication. Past Med Surg Social Fam HX - Past Medical History Medical history: arthritis, COPD, CVA, hyperlipidemia, hypertension Psychiatric history: anxiety, bipolar, depression, panic disorder - Past Surgical History Surgical History: appendectomy, , orthopedic, other Additional surgical history: cyst on ovary. right foot bunion - Social History Smoking Status: Current every day smoker Packs per day: 1.5 Smokeless Tobacco Status: No Alcohol use: none Drug use: none - Family History Mother History Unknown: Yes Father History Unknown: Yes Medications and Allergies Aspirin [Ecotrin] 325 mg PO DAILY 09/08/18 [History] Budesonide/Formoterol 160/4.5 [Symbicort 160/4.5] 2 puff IH BIDR 09/08/18 [History] Ergocalciferol (VITAMIN D2) [Vitamin D2] 50,000 unit PO TUSA 09/08/18 [History] [place] Carbonate ER [Eskalith] 450 mg PO HS 09/08/18 [History] Omeprazole [PriLOSEC] 40 mg PO DAILY 09/08/18 [History] Paroxetine [Paxil] 20 mg PO DAILY 09/08/18 [History] Simvastatin [Zocor] 10 mg PO HS 09/08/18 [History] Tiotropium [place] [Spiriva Respimat] 2 puff IH DAILY 09/08/18 [History] Verapamil [Isoptin] 40 mg PO TID 09/08/18 [History] clonazePAM [Clonazepam] 0.25 mg PO QAM 09/08/18 [History] clonazePAM [Clonazepam] 0.5 mg PO HS 09/08/18 [History] hydroCHLOROthiazide [Hydrochlorothiazide] 25 mg PO DAILY 09/08/18 [History] traZODone [TraZODone] 25 mg PO HS 09/08/18 [History] Allergy/AdvReac Type Severity Reaction Status Date / Time acetaminophen Allergy Nausea Verified 08/14/17 11:05 [From Darvocet-N] Erythromycin Base Allergy Nausea Verified 08/14/17 11:05 propoxyphene Allergy Nausea Verified 08/14/17 11:05 [From Darvocet-N] ROS unobtainable: due to mental status All Systems: The remainder of the systems were reviewed and are negative Physical Examination - Vital Signs Vital Signs: Initial Vital Signs Temp Pulse Resp BP Pulse Ox 100.6 F H 72 18 127/75 93 09/08/18 16:59 09/08/18 16:59 09/08/18 16:59 09/08/18 16:59 09/08/18 16:59 - Exam Exam: General Examination: *CONSTITUTIONAL: Patient intubated *GENERAL APPEARANCE OF PATIENT patient currently intubated in the intensive care unit. *EYES: pupils equal, round, reactive to light and accommodation, conju nctiva clear without masses or ulcerations, fundi normal. *CARDIOVASCULAR no peripheral edema, distal temperature normal, dorsalis pedis pulses normal. Refer to vital signs Musculoskeletal: *GAIT AND STATION patient currently comatose *ASSESSMENT OF MUSCLE STRENGTH IN THE UPPER AND LOWER EXTREMITIES is flaccid tone in all 4 extremities, however the right leg is externally rotated. There are no spontaneous movements identified. No involuntary movements are present. *MUSCLE TONE IN THE UPPER AND LOWER EXTREMITIES normal. No abnormal movements, fasciculations or atrophy identified. Neurological: *ORIENTATION patient comatose *CN II optic fundi were normal, no papilledema noted. *CN III,IV, PERRLA doll's eyes are present symmetrically *CN V corneal reflexes are intact symmetrically *CN VII patient is intubated. *CN VIII shows no significant hearing loss on examination in the office. *CN IX,,X patient is minimally assisting the ventilator. *SENSORY EXAMINATION pinprick sensation intact, and light touch(vibration sense). *REFLEXES: deep tendon reflexes were absent throughout. No clonus or Babinski are identified. Results - Laboratory Findings CBC and BMP: 09/19/18 03:23 09/19/18 12:22 Abnormal lab findings: Abnormal lab results WBC 20.2 K/mcL (4.3-11.1) H 09/19/18 03:23 Hgb 8.4 g/dL (11.5-15.4) L 09/19/18 03:23 Hct 31.3 % (35.3-44.9) L 09/19/18 03:23 MCV 76.5 fL (83.0-100.0) L 09/19/18 03:23 MCH 20.5 pg (28.0-33.3) L 09/19/18 03:23 MCHC 26.8 g/dL (31.6-35.5) L 09/19/18 03:23 RDW 19.3 % (11.5-14.5) H 09/19/18 03:23 Plt Count 125 K/mcL (140-400) L 09/13/18 01:24 MPV 12.6 fL (9.4-12.4) H 09/16/18 03:07 Immature Gran % 4.3 % (0-4) H 09/19/18 03:23 8.0 % (0-4) H 09/10/18 05:39 4.0 % (0) H 09/18/18 04:22 17.3 K/mcL (1.6-8.9) H 09/19/18 03:23 0.5 K/mcL (0.6-4.6) L 09/19/18 03:23 1.5 K/mcL (0.0-1.3) H 09/19/18 03:23 Nucleated RBCs/100 WBC 0.9 /100 WBC (0) H 09/19/18 03:23 Present (Not Present) A 09/18/18 04:22 Slight Decrease (Normal) L 09/13/18 01:24 Present (Not Present) A 09/19/18 03:23 Immature Plt Fraction 10.4 % (1.1-6.1) H 09/15/18 07:26 1+ (Not Present) A 09/18/18 04:22 Present (Not Present) A 09/19/18 03:23 1+ (Not Present) A 09/10/18 05:39 1+ (Not Present) A 09/18/18 04:22 1+ (Not Present) A 09/19/18 03:23 Present (Not Present) A 09/17/18 04:14 PT 12.2 Seconds (9.4-12.1) H 09/12/18 16:53 Heparin Anti-Xa, Unfract 0.28 IU/mL (0.30-0.70) L 09/14/18 19:15 ABG pH 7.51 pH Units (7.32-7.45) H 09/14/18 04:40 ABG pCO2 67 mmHg (35-45) H 09/19/18 05:09 ABG pO2 60 mmHg (85-104) L 09/19/18 05:09 ABG HCO3 39 mEq/L (21-27) H 09/19/18 05:09 ABG Total CO2 41 mEq/L (20-26) H 09/19/18 05:09 ABG O2 Saturation 89 % (95-98) L 09/19/18 05:09 ABG Base Excess 12 mEq/L (-2 to 3) H 09/19/18 05:09 Sodium 150 mEq/L (136-145) H 09/19/18 03:23 Potassium 3.1 mEq/L (3.5-5.1) L 09/08/18 17:08 Chloride 110 mEq/L (98-107) H 09/19/18 12:22 Carbon Dioxide 33 mEq/L (23-29) H 09/19/18 12:22 BUN 43 mg/dL (8-23) H 09/19/18 12:22 0.59 mg/dL (0.60-1.20) L 09/19/18 12:22 Est GFR (Non-Af Amer) 54 (> 60) L 09/13/18 01:24 73 (6-26) H 09/19/18 12:22 Glucose 150 mg/dL (70-105) H 09/19/18 12:22 POC Glucose 172 mg/dL (70-99) H 09/19/18 00:14 314 (280-300) H 09/19/18 12:22 Calcium 8.5 mg/dL (8.6-10.3) L 09/13/18 01:24 0.2 mg/dL (0.3-1.0) L 09/09/18 14:05 AST 104 Units/L (13-39) H 09/19/18 03:23 ALT 321 Units/L (7-52) H 09/19/18 03:23 585 Units/L (140-271) H 09/18/18 08:21 18.65 ng/mL (< 0.04) H* 09/13/18 01:24 5.3 g/dL (6.4-8.9) L 09/19/18 03:23 2.9 g/dL (3.5-5.7) L 09/19/18 03:23 2.2 g/dL (2.4-3.5) L 09/18/18 13:35 1.0 (1.1-2.2) L 09/15/18 16:09 6 Units/L (11-82) L 09/08/18 17:08 1.27 ng/mL (0.00-0.15) H 09/12/18 15:45 Ur Specific [place] < 1.005 (1.010-1.025) L 09/08/18 21:01 Pleural Appearance Hazy (Clear) A 09/18/18 08:20 Pleural RBC 0.004 M/mcL (0.000-0.002) H 09/18/18 08:20 Vancomycin Trough 16 mcg/mL (5-10) H 09/17/18 16:11 [place] 0.3 mEq/L (0.6-1.2) L 09/09/18 01:49 DETECTED (Not Detect) A 09/10/18 09:40 Consult Discharge Plan - Plan Referrals: Sayda Villagran MD [Primary Care Provider] -
[2018-09-19 16:49] LABS: Sodium 146 mEq/L (136-145)
[2018-09-19 17:18] LABS: BUN/Creatinine Ratio 74 (6-26); Blood Urea Nitrogen 43 mg/dL (8-23); Calcium 9.2 mg/dL (8.6-10.3); Carbon Dioxide 33 mEq/L (23-29); Chloride 108 mEq/L (98-107); Glucose 156 mg/dL (70-105); Osmolality,Calculated 316 (280-300); Potassium 4.9 mEq/L (3.5-5.1); eGFR For African Americans > 60 (> 60); eGFR For Non-African Americans > 60 (> 60)
[2018-09-20] MEDS: Artificial Tears SOLN 15 ML BOTTLE BOTH EYES SCH ×5 (00:09→15:58)
[2018-09-20] MEDS: Ipratropium/Albuterol Neb 3 ML IH SCH ×5 (00:41→15:58)
[2018-09-20 02:39] LABS: A.galactomannan Ag Index 0.05
[2018-09-20] MEDS: Piperacillin/Tazobactam 3.375 GM in 0.9 % Sodium Chloride Mini Bag 100 ML IVPB SCH ×2 (03:59→12:10)
[2018-09-20 04:37] LABS: Hematocrit 30.5 % (35.3-44.9); Hemoglobin 8.5 g/dL (11.5-15.4); Mean Corpuscular HGB Conc 27.9 g/dL (31.6-35.5); Mean Corpuscular Hemoglobin 20.9 pg (28.0-33.3); Mean Corpuscular Volume 75.1 fL (83.0-100.0); Platelet Count 302 K/mcL (140-400); Red Blood Count 4.06 M/mcL (3.82-4.97); Red Cell Distribution Width 19.3 % (11.5-14.5); White Blood Count 18.7 K/mcL (4.3-11.1)
[2018-09-20 04:56] LABS: BUN/Creatinine Ratio 87 (6-26); Blood Urea Nitrogen 41 mg/dL (8-23); Calcium 9.1 mg/dL (8.6-10.3); Carbon Dioxide 35 mEq/L (23-29); Chloride 112 mEq/L (98-107); Glucose 164 mg/dL (70-105); Osmolality,Calculated 324 (280-300); Potassium 4.5 mEq/L (3.5-5.1); Sodium 150 mEq/L (136-145); eGFR For African Americans > 60 (> 60); eGFR For Non-African Americans > 60 (> 60)
[2018-09-20 05:24] LABS: ABG Base Excess 11 mEq/L (-2 to 3); ABG HCO3 39 mEq/L (21-27); ABG Oxygen Saturation 86 % (95-98); ABG PCO2 72 mmHg (35-45); ABG PH 7.34 pH Units (7.32-7.45); ABG PO2 58 mmHg (85-104); ABG TCO2 41 mEq/L (20-26); Blood Gas Modality ASSIST CONTROL; Blood Gas PEEP 5 cm H2O; Blood Gas VT 460 cc
[2018-09-20] MEDS: MethylPREDNISolone 40 MG/ML VIAL IVP SCH ×2 (06:01→17:52)
[2018-09-20] MEDS: FentaNYL (PF) 1,000 MCG in 0.9 % Sodium Chloride 80 ML IVC SCH ×4 (06:01→20:41)
[2018-09-20] MEDS: Pantoprazole 40 MG VIAL IVP SCH (06:01)
[2018-09-20] MEDS: Budesonide/Formoterol 160/4.5 1 PUFF INH IH SCH (07:25)
[2018-09-20] MEDS: Chlorhexidine Rinse 15 ML MOUTHWASH MM SCH (07:56)
[2018-09-20] MEDS: Docusate Oral Soln 100 MG/10 ML UDC GTUBE SCH (07:56)
[2018-09-20] MEDS: Aspirin 81 MG TAB.CHEW PO SCH (07:56)
--- NOTE | 2018-09-20 08:09 | Pulmonology Progress Note ---
<FlorenceirinaLuigi hardin W - Last Filed: 09/20/18 11:40> Date of Encounter: 09/20/18 Objective PUL Vital signs: Last Vital Signs Temp 97.3 F L 09/20/18 03:44 Pulse 112 09/20/18 08:00 Resp 21 09/20/18 08:00 BP 111/79 09/20/18 08:00 Pulse Ox 94 09/20/18 08:00 Ventilator Settings Ventilator Settings: Ventilator Settings, Last 8 Hours Ventilator Tidal Volume 460 Setting Ventilator Tidal Volume 460 Setting Ventilator Tidal Volume 460 Setting Ventilator Tidal Volume 460 Setting Ventilator Tidal Volume 460 Setting Ventilator Tidal Volume 460 Setting Ventilator Tidal Volume 460 Setting Ventilator Tidal Volume 460 Setting Ventilator Tidal Volume 460 Setting Ventilator Tidal Volume 460 Setting Ventilator Tidal Volume 460 Setting Ventilator Tidal Volume 460 Setting Ventilator Tidal Volume 460 Setting Ventilator Respiratory Rate 16 Setting Ventilator Respiratory Rate 16 Setting Ventilator Respiratory Rate 16 Setting Ventilator Respiratory Rate 16 Setting Ventilator Respiratory Rate 16 Setting Ventilator Respiratory Rate 16 Setting Ventilator Respiratory Rate 16 Setting Ventilator Respiratory Rate 16 Setting Ventilator Respiratory Rate 16 Setting Ventilator Respiratory Rate 16 Setting Ventilator Respiratory Rate 16 Setting Ventilator Respiratory Rate 16 Setting Ventilator Respiratory Rate 21 Setting Actual Respiratory Rate 22 Actual Respiratory Rate 21 Actual Respiratory Rate 22 Actual Respiratory Rate 23 Actual Respiratory Rate 22 Actual Respiratory Rate 22 Actual Respiratory Rate 19 Actual Respiratory Rate 19 Actual Respiratory Rate 20 Actual Respiratory Rate 20 Actual Respiratory Rate 18 Actual Respiratory Rate 20 Positive End Expiratory 5 Pressure Positive End Expiratory 5 Pressure Positive End Expiratory 5 Pressure Positive End Expiratory 5 Pressure Positive End Expiratory 5 Pressure Positive End Expiratory 5 Pressure Positive End Expiratory 5 Pressure Positive End Expiratory 5 Pressure Positive End Expiratory 5 Pressure Positive End Expiratory 5 Pressure Positive End Expiratory 5 Pressure Positive End Expiratory 5 Pressure Positive End Expiratory 5 Pressure Peak Inspiratory Airway 27 Pressure Peak Inspiratory Airway 28 Pressure Peak Inspiratory Airway 50 Pressure Peak Inspiratory Airway 33 Pressure Peak Inspiratory Airway 29 Pressure Peak Inspiratory Airway 32 Pressure Peak Inspiratory Airway 24 Pressure Peak Inspiratory Airway 25 Pressure Peak Inspiratory Airway 27 Pressure Peak Inspiratory Airway 27 Pressure Peak Inspiratory Airway 27 Pressure Peak Inspiratory Airway 25 Pressure Results - Laboratory Findings CBC and BMP: 09/20/18 04:21 09/20/18 11:01 ABG ABG pH 7.34 pH Units (7.32-7.45) 09/20/18 05:16 ABG pCO2 72 mmHg (35-45) H* 09/20/18 05:16 ABG pO2 58 mmHg (85-104) L 09/20/18 05:16 ABG O2 Saturation 86 % (95-98) L 09/20/18 05:16 PT/INR, D-dimer PT 12.2 Seconds (9.4-12.1) H 09/12/18 16:53 Abnormal lab findings: Abnormal lab results WBC 18.7 K/mcL (4.3-11.1) H 09/20/18 04:21 Hgb 8.5 g/dL (11.5-15.4) L 09/20/18 04:21 Hct 30.5 % (35.3-44.9) L 09/20/18 04:21 MCV 75.1 fL (83.0-100.0) L 09/20/18 04:21 MCH 20.9 pg (28.0-33.3) L 09/20/18 04:21 MCHC 27.9 g/dL (31.6-35.5) L 09/20/18 04:21 RDW 19.3 % (11.5-14.5) H 09/20/18 04:21 Plt Count 125 K/mcL (140-400) L 09/13/18 01:24 MPV 12.6 fL (9.4-12.4) H 09/16/18 03:07 Immature Gran % 4.3 % (0-4) H 09/19/18 03:23 8.0 % (0-4) H 09/10/18 05:39 4.0 % (0) H 09/18/18 04:22 17.3 K/mcL (1.6-8.9) H 09/19/18 03:23 0.5 K/mcL (0.6-4.6) L 09/19/18 03:23 1.5 K/mcL (0.0-1.3) H 09/19/18 03:23 Nucleated RBCs/100 WBC 0.9 /100 WBC (0) H 09/19/18 03:23 Present (Not Present) A 09/18/18 04:22 Slight Decrease (Normal) L 09/13/18 01:24 Present (Not Present) A 09/19/18 03:23 Immature Plt Fraction 10.4 % (1.1-6.1) H 09/15/18 07:26 1+ (Not Present) A 09/18/18 04:22 Present (Not Present) A 09/19/18 03:23 1+ (Not Present) A 09/10/18 05:39 1+ (Not Present) A 09/18/18 04:22 1+ (Not Present) A 09/19/18 03:23 Present (Not Present) A 09/17/18 04:14 PT 12.2 Seconds (9.4-12.1) H 09/12/18 16:53 Heparin Anti-Xa, Unfract 0.28 IU/mL (0.30-0.70) L 09/14/18 19:15 ABG pH 7.51 pH Units (7.32-7.45) H 09/14/18 04:40 ABG pCO2 72 mmHg (35-45) H* 09/20/18 05:16 ABG pO2 58 mmHg (85-104) L 09/20/18 05:16 ABG HCO3 39 mEq/L (21-27) H 09/20/18 05:16 ABG Total CO2 41 mEq/L (20-26) H 09/20/18 05:16 ABG O2 Saturation 86 % (95-98) L 09/20/18 05:16 ABG Base Excess 11 mEq/L (-2 to 3) H 09/20/18 05:16 Sodium 150 mEq/L (136-145) H 09/20/18 04:21 Potassium 3.1 mEq/L (3.5-5.1) L 09/08/18 17:08 Chloride 112 mEq/L (98-107) H 09/20/18 04:21 Carbon Dioxide 35 mEq/L (23-29) H 09/20/18 04:21 BUN 41 mg/dL (8-23) H 09/20/18 04:21 0.47 mg/dL (0.60-1.20) L 09/20/18 04:21 Est GFR (Non-Af Amer) 54 (> 60) L 09/13/18 01:24 87 (6-26) H 09/20/18 04:21 Glucose 164 mg/dL (70-105) H 09/20/18 04:21 POC Glucose 150 mg/dL (70-99) H 09/20/18 01:05 324 (280-300) H 09/20/18 04:21 Calcium 8.5 mg/dL (8.6-10.3) L 09/13/18 01:24 0.2 mg/dL (0.3-1.0) L 09/09/18 14:05 AST 104 Units/L (13-39) H 09/19/18 03:23 ALT 321 Units/L (7-52) H 09/19/18 03:23 585 Units/L (140-271) H 09/18/18 08:21 18.65 ng/mL (< 0.04) H* 09/13/18 01:24 5.3 g/dL (6.4-8.9) L 09/19/18 03:23 2.9 g/dL (3.5-5.7) L 09/19/18 03:23 2.2 g/dL (2.4-3.5) L 09/18/18 13:35 1.0 (1.1-2.2) L 09/15/18 16:09 6 Units/L (11-82) L 09/08/18 17:08 1.27 ng/mL (0.00-0.15) H 09/12/18 15:45 Ur Specific [place] < 1.005 (1.010-1.025) L 09/08/18 21:01 Pleural Appearance Hazy (Clear) A 09/18/18 08:20 Pleural RBC 0.004 M/mcL (0.000-0.002) H 09/18/18 08:20 Vancomycin Trough 16 mcg/mL (5-10) H 09/17/18 16:11 [place] 0.3 mEq/L (0.6-1.2) L 09/09/18 01:49 DETECTED (Not Detect) A 09/10/18 09:40 - Microbiology Findings Microbiology Findings: Microbiology, Last 48 Hours 09/14/18 12:07 Blood Culture - Final Peripheral Venipuncture No growth. Final report. 09/14/18 12:00 Blood Culture - Final Peripheral Venipuncture No growth. Final report. 09/18/18 08:20 Fungal Culture - Preliminary Pleural Fluid Culture is incubating. 09/18/18 08:20 Body Fluid Culture - Preliminary Pleural Fluid 09/18/18 13:44 Blood Culture - Preliminary Peripheral Venipuncture Culture is incubating and being continuously mo nitored for growth. Final report to follow. 09/18/18 13:35 Blood Culture - Preliminary Peripheral Venipuncture Culture is incubating and being continuously monitored for growth. Final report to follow. - Clinical Findings Intake & Output: Intake & Output 09/19/18 09/20/18 09/20/18 23:59 07:59 15:59 Intake Total 1143.1 / 5516.2 943.6 / 943.6 Output Total 850 / 2300 675 / 675 Balance 293.1 / 3216.2 268.6 / 268.6 Weight 74.9 kg Consult Discharge Plan - Plan Referrals: Sayda Villagran MD [Primary Care Provider] - - Attending Attestation I examined this patient and my medical decision-making was reviewed with the Resident Physician. I agree with the documented findings, disposition and treatment plan as described except to the extent set forth below. We independently had [id number] contact with the patient I spent 40min of Critical Care time with this patient. It involved decision making of high complexity to assess, manipulate, and support vital organ system failure and/or to prevent further life threatening deterioration of the patient's condition. The time involved in the performance of separately reportable procedures was not counted toward critical care time. Patient seen and examined at bedside Labs, radiology, chart personally reviewed. Management was reviewed during multidisciplinary critical care rounds. REGISTERED HEALTH NURSE: Subacute CVA in the left MCA distribution with likely small hemorrhagic conversion neurology consulted continue supportive care suspected this is cardioembolic in nature neuro prognosis poor poor recovery Pulm: Hypoxic hypercapnic wears respiratory failure with worsening gas exchange is likely secondary to pulmonary edema and pneumonia event has been adjusted to increase FiO2 she is not a candidate for SBT today because of critical illness Cards:Acute NSTEMI possibly secondary to demand ischemia versus stress-induced cardiomyopathy cardiology following goal systolic blood pressure with some evidence of hemorrhagic conversion she be around 140-160 GI: GI prophylaxis given Nutrition: Enteral nutrition Renal: He treatment stable continue free water UOP Monitored, Cont to Trend sCr and monitor Electrolytes. ID: Continue broad-spectrum antibiotics for pneumonia white count is trending down Heme/Onc: DVT prophylaxis had been given Endo: Glucose Monitored Integ/MSK: Skin Care per routine ICU Nursing Protocol to prevent ulcers. Lines: All lines examined without evidence of infection : Dispo: Monitor in ICU for critical illness CODE: DNAR=>DNRCC I had an extensive conversation with the son who had spoken expensively with the patient's next of kin her who is frail and had just recently gotten out of the hospital overall they have expected to transition to comfort measures in keeping with her wishes given overall catastrophic prognosis very poor given degree of respiratory failure and CVA all QUESTIONS were answered The patient is unable or incompetent to participate in giving a history and/or making treatment decisions. The discussion was necessary for determining treatment decision. This discussion took place in the ICU via phone. The total meeting time was 15 minutes <Orlando Vences - Last Filed: 09/20/18 21:53> Date of Encounter: 09/20/18 Time of Encounter: 07:30 Assessment and Plan (1) Goals of care, counseling/discussion Current Visit: Yes Status: Acute Dr Sherman spoke with pt's son Jona at 11:36 with this provider and Maria Teresa RN. Discussed current clinical picture with respiratory failure, cardiomyopathy, pneumonia, and CVA. Family is aware of very poor prognosis. Jona reported he and his father will not be able to arrive until approximately 4pm this afternoon. He reports both he and the pt's wish to keep the patient comfortable at this time and plan for palliative extubation later today. At approximately 4pm, all family were at bedside. Pt's again confirmed that the patient would not want further aggressive measures. Discussed changing CODE STATUS to comfort care measures. State DNR form signed for DNR-CC status and placed on chart. Order placed in EMR. Will continue to provide compassionate care to patient and family. Continue fentanyl drip. Ativan prn. SL Atropine for secretions. (2) Acute respiratory failure with hypoxia Current Visit: Yes Status: Acute Assessment: On 09/11/18, patient developed worsening respiratory distress with accessory muscle use and required intubation Etiology unknown at this time; likely secondary to pneumonia, and adenovirus Chest CT on 09/15 demonstrated right-sided pleural effusion - Underwent diagnostic thoracentesis with IR yesterday which revealed exudative pleural effusion. Culture pending - no growth to date - Infectious disease is on board to assist with management of antibiotics Plan: comfort care measures as above Extubated Discontinued antibiotics (3) Cerebral infarction, left hemisphere Current Visit: Yes Status: Acute CT of the head was obtained on 09/19/2018 for agonal breathing over the vent, and altered mental status when weaned off sedation. The CT showed an acute left frontotemporal infarct with mild localized sulcal effacement with no global mass effect. This distribution was in the territory of the MCA. A hyperdensity was also noted in the left frontal area which was believed to be motion artifact but subarachnoid hemorrhage cannot be excluded. These results were discussed with patient's family. Family requested evaluation by neurology. Afternoon Dr. Thompson evaluated the patient and believes she will likely have speech and language difficulty and would be a poor rehabilitation candidate. This evaluation was also discussed with the patient's son after was completed. Family states they are planning for a palliative approach at this time with possible palliative extubation today. Discontinued metoprolol to allow for permissive hypertension. Discontinued subcutaneous heparin with possible subarachnoid hemorrhage, and for possible hemorrhagic conversion. Goals of care as detailed above (4) Sepsis Current Visit: Yes Status: Acute - Currently meets 3 out of 4 SIRS criteria of tachycardia, tachypnea, leukocytosis; has also had intermittent fevers during stay in ICU - Causative organism unknown; potential sources include pneumonia, pleural effusion, and tickborne illness - Reported history of a tick bite on the shoulder approximately 2 weeks ago with subsequent flulike illness - Non-thrombocytopenic. LFTs wnl. Tick borne illness less likely - Doxycycline was discontinued by ID - Respiratory infection panel positive for adenovirus - Blood cultures 2 from 09/08 are negative - Blood cultures 2 from 09/12 are negative - Blood cultures 2 from 09/14 are negative - Pleural fluid culture from 09/18 still pending with no growth to date - Blood cultures x2 from 09/18 are pending with no reported growth at this time Plan: comfort care measures as above Qualifiers: Sepsis type: sepsis due to unspecified organism Qualified Code(s): A41.9 - Sepsis, unspecified organism (5) Hypernatremia Current Visit: Yes Status: Acute Continued at 150 again today Free water pushes were discontinued yesterday as sodium was correctly more quickly. Maintained at no more than 10mEq/24 hours Stop D5 and water Will stop serial sodium checks as it appears to have stabilized between 145-150. Comfort care measures as above (6) Hypertension Current Visit: Yes Status: Chronic Discontinued metoprolol to allow for permissive HTN with CVA Qualifiers: Hypertension type: essential hypertension Qualified Code(s): I10 - Essential (primary) hypertension (7) RLL pneumonia Current Visit: Yes Status: Acute As seen on chest x-ray and chest CTs Plan as above Qualifiers: Pneumonia type: due to unspecified organism Qualified Code(s): J18.1 - Lobar pneumonia, unspecified organism (8) NSTEMI (non-ST elevated myocardial infarction) Current Visit: Yes Status: Acute Initial troponin on 09/09 was less than 0.03 Subsequent troponins drawn on 09/12 were 10.43, 13.64, 19.07, 18.65 At that time the patient was started on a heparin drip and cardiology was consulted CT on 09/13/18 showed EF 25-30%, severe global and segmental LV systolic dysfuncti on, mild LV diastolic dysfunction Per cardiology, findings suggestive of Takotsubo cardiomyopathy Heparin drip switched to DVT prophylaxis per the recommendations of cardiology Plan: - subcutaneous heparin was discontinued as above with acute CVA - Comfort care measures as detailed above (9) HFrEF (heart failure with reduced ejection fraction) Current Visit: Yes Status: Acute As seen on echo Cardiology evaluated, and signed off at this time. Qualifiers: Heart failure chronicity: unspecified Qualified Code(s): I50.20 - Unspecified systolic (congestive) heart failure (10) Tick bite Current Visit: Yes Status: Acute Patient reported to have tick bite approximately 2 weeks ago with a subsequent f lulike symptoms of fever or myalgias Plan as above Qualifiers: Encounter type: initial encounter Qualified Code(s): W57.XXXA - Bitten or stung by nonvenomous insect and other nonvenomous arthropods, initial encounter Subjective Principal diagnosis: NSTEMI, CMP, respiratory failure Interval history: Patient seen and examined at bedside. Patient sedated and remains intubated. No acute events overnight Objective PUL Vital signs: Last Vital Signs Temp 97.3 F L 09/20/18 03:44 Pulse 112 09/20/18 08:00 Resp 21 09/20/18 08:00 BP 111/79 09/20/18 08:00 Pulse Ox 94 09/20/18 08:00 General appearance: comatose ENT: oropharynx moist Effort: other (mechanically ventilated ) Auscultation: bilateral: wheezes, rales Cardiovascular: regular rate and rhythm Gastrointestinal: soft, non-tender, non-distended Extremities: cool (bilateral feet ), cyanosis (mottling on bilateral feet ), anasarca Musculoskeletal: no deformities unable to assess due to mental status Ventilator Settings Ventilator Settings: Ventilator Settings, Last 8 Hours Ventilator Tidal Volume 460 Setting Ventilator Tidal Volume 460 Setting Ventilator Tidal Volume 460 Setting Ventilator Tidal Volume 460 Setting Ventilator Tidal Volume 460 Setting Ventilator Tidal Volume 460 Setting Ventilator Tidal Volume 460 Setting Ventilator Tidal Volume 460 Setting Ventilator Tidal Volume 460 Setting Ventilator Tidal Volume 460 Setting Ventilator Tidal Volume 460 Setting Ventilator Tidal Volume 460 Setting Ventilator Tidal Volume 460 Setting Ventilator Respiratory Rate 16 Setting Ventilator Respiratory Rate 16 Setting Ventilator Respiratory Rate 16 Setting Ventilator Respiratory Rate 16 Setting Ventilator Respiratory Rate 16 Setting Ventilator Respiratory Rate 16 Setting Ventilator Respiratory Rate 16 Setting Ventilator Respiratory Rate 16 Setting Ventilator Respiratory Rate 16 Setting Ventilator Respiratory Rate 16 Setting Ventilator Respiratory Rate 16 Setting Ventilator Respiratory Rate 16 Setting Ventilator Respiratory Rate 21 Setting Actual Respiratory Rate 22 Actual Respiratory Rate 21 Actual Respiratory Rate 22 Actual Respiratory Rate 23 Actual Respiratory Rate 22 Actual Respiratory Rate 22 Actual Respiratory Rate 19 Actual Respiratory Rate 19 Actual Respiratory Rate 20 Actual Respiratory Rate 20 Actual Respiratory Rate 18 Actual Respiratory Rate 20 Positive End Expiratory 5 Pressure Positive End Expiratory 5 Pressure Positive End Expiratory 5 Pressure Positive End Expiratory 5 Pressure Positive End Expiratory 5 Pressure Positive End Expiratory 5 Pressure Positive End Expiratory 5 Pressure Positive End Expiratory 5 Pressure Positive End Expiratory 5 Pressure Positive End Expiratory 5 Pressure Positive End Expiratory 5 Pressure Positive End Expiratory 5 Pressure Positive End Expiratory 5 Pressure Peak Inspiratory Airway 27 Pressure Peak Inspiratory Airway 28 Pressure Peak Inspiratory Airway 50 Pressure Peak Inspiratory Airway 33 Pressure Peak Inspiratory Airway 29 Pressure Peak Inspiratory Airway 32 Pressure Peak Inspiratory Airway 24 Pressure Peak Inspiratory Airway 25 Pressure Peak Inspiratory Airway 27 Pressure Peak Inspiratory Airway 27 Pressure Peak Inspiratory Airway 27 Pressure Peak Inspiratory Airway 25 Pressure Results - Laboratory Findings CBC and BMP: 09/20/18 04:21 09/20/18 11:01 ABG ABG pH 7.34 pH Units (7.32-7.45) 09/20/18 05:16 ABG pCO2 72 mmHg (35-45) H* 09/20/18 05:16 ABG pO2 58 mmHg (85-104) L 09/20/18 05:16 ABG O2 Saturation 86 % (95-98) L 09/20/18 05:16 PT/INR, D-dimer PT 12.2 Seconds (9.4-12.1) H 09/12/18 16:53 Abnormal lab findings: Abnormal lab results WBC 18.7 K/mcL (4.3-11.1) H 09/20/18 04:21 Hgb 8.5 g/dL (11.5-15.4) L 09/20/18 04:21 Hct 30.5 % (35.3-44.9) L 09/20/18 04:21 MCV 75.1 fL (83.0-100.0) L 09/20/18 04:21 MCH 20.9 pg (28.0-33.3) L 09/20/18 04:21 MCHC 27.9 g/dL (31.6-35.5) L 09/20/18 04:21 RDW 19.3 % (11.5-14.5) H 09/20/18 04:21 Plt Count 125 K/mcL (140-400) L 09/13/18 01:24 MPV 12.6 fL (9.4-12.4) H 09/16/18 03:07 Immature Gran % 4.3 % (0-4) H 09/19/18 03:23 8.0 % (0-4) H 09/10/18 05:39 4.0 % (0) H 09/18/18 04:22 17.3 K/mcL (1.6-8.9) H 09/19/18 03:23 0.5 K/mcL (0.6-4.6) L 09/19/18 03:23 1.5 K/mcL (0.0-1.3) H 09/19/18 03:23 Nucleated RBCs/100 WBC 0.9 /100 WBC (0) H 09/19/18 03:23 Present (Not Present) A 09/18/18 04:22 Slight Decrease (Normal) L 09/13/18 01:24 Present (Not Present) A 09/19/18 03:23 Immature Plt Fraction 10.4 % (1.1-6.1) H 09/15/18 07:26 1+ (Not Present) A 09/18/18 04:22 Present (Not Present) A 09/19/18 03:23 1+ (Not Present) A 09/10/18 05:39 1+ (Not Present) A 09/18/18 04:22 1+ (Not Present) A 09/19/18 03:23 Present (Not Present) A 09/17/18 04:14 PT 12.2 Seconds (9.4-12.1) H 09/12/18 16:53 Heparin Anti-Xa, Unfract 0.28 IU/mL (0.30-0.70) L 09/14/18 19:15 ABG pH 7.51 pH Units (7.32-7.45) H 09/14/18 04:40 ABG pCO2 72 mmHg (35-45) H* 09/20/18 05:16 ABG pO2 58 mmHg (85-104) L 09/20/18 05:16 ABG HCO3 39 mEq/L (21-27) H 09/20/18 05:16 ABG Total CO2 41 mEq/L (20-26) H 09/20/18 05:16 ABG O2 Saturation 86 % (95-98) L 09/20/18 05:16 ABG Base Excess 11 mEq/L (-2 to 3) H 09/20/18 05:16 Sodium 150 mEq/L (136-145) H 09/20/18 04:21 Potassium 3.1 mEq/L (3.5-5.1) L 09/08/18 17:08 Chloride 112 mEq/L (98-107) H 09/20/18 04:21 Carbon Dioxide 35 mEq/L (23-29) H 09/20/18 04:21 BUN 41 mg/dL (8-23) H 09/20/18 04:21 0.47 mg/dL (0.60-1.20) L 09/20/18 04:21 Est GFR (Non-Af Amer) 54 (> 60) L 09/13/18 01:24 87 (6-26) H 09/20/18 04:21 Glucose 164 mg/dL (70-105) H 09/20/18 04:21 POC Glucose 150 mg/dL (70-99) H 09/20/18 01:05 324 (280-300) H 09/20/18 04:21 Calcium 8.5 mg/dL (8.6-10.3) L 09/13/18 01:24 0.2 mg/dL (0.3-1.0) L 09/09/18 14:05 AST 104 Units/L (13-39) H 09/19/18 03:23 ALT 321 Units/L (7-52) H 09/19/18 03:23 585 Units/L (140-271) H 09/18/18 08:21 18.65 ng/mL (< 0.04) H* 09/13/18 01:24 5.3 g/dL (6.4-8.9) L 09/19/18 03:23 2.9 g/dL (3.5-5.7) L 09/19/18 03:23 2.2 g/dL (2.4-3.5) L 09/18/18 13:35 1.0 (1.1-2.2) L 09/15/18 16:09 6 Units/L (11-82) L 09/08/18 17:08 1.27 ng/mL (0.00-0.15) H 09/12/18 15:45 Ur Specific [place] < 1.005 (1.010-1.025) L 09/08/18 21:01 Pleural Appearance Hazy (Clear) A 09/18/18 08:20 Pleural RBC 0.004 M/mcL (0.000-0.002) H 09/18/18 08:20 Vancomycin Trough 16 mcg/mL (5-10) H 09/17/18 16:11 [place] 0.3 mEq/L (0.6-1.2) L 09/09/18 01:49 DETECTED (Not Detect) A 09/10/18 09:40 - Microbiology Findings Microbiology Findings: Microbiology, Last 48 Hours 09/14/18 12:07 Blood Culture - Final Peripheral Venipuncture No growth. Final report. 09/14/18 12:00 Blood Culture - Final Peripheral Venipuncture No growth. Final report. 09/18/18 08:20 Fungal Culture - Preliminary Pleural Fluid Culture is incubating. 09/18/18 08:20 Body Fluid Culture - Preliminary Pleural Fluid 09/18/18 13:44 Blood Culture - Preliminary Peripheral Venipuncture Culture is incubating and being continuously monitored for growth. Final report to follow. 09/18/18 13:35 Blood Culture - Preliminary Peripheral Venipuncture Culture is incubating and being continuously monitored for growth. Final report to follow. - Clinical Findings Intake & Output: Intake & Output 09/19/18 09/20/18 09/20/18 23:59 07:59 15:59 Intake Total 1143.1 / 5516.2 943.6 / 943.6 Output Total 850 / 2300 675 / 675 Balance 293.1 / 3216.2 268.6 / 268.6 Weight 74.9 kg
[2018-09-20] MEDS: Insulin Human Regular 100 UNIT in 0.9 % Sodium Chloride 100 ML IVC SCH (10:32)
[2018-09-20 13:01] LABS: Fluid Source for Albumin PLEURAL FLUID
[2018-09-20 14:25] LABS: BronchAsperGalactomannan Index 0.04
[2018-09-20] MEDS ORDERED: *HR* LORazepam 2 MG/ML VIAL IVP PRN (16:07)
[2018-09-20] MEDS ORDERED: Atropine Sulfate 1% 40 DROP/2 ML BOTTLE SL PRN (16:07)
[2018-09-20] MEDS ORDERED: Atropine 1% Opth Drops 100 DROP/5 ML BOTTLE SL PRN (16:45)
[2018-09-20] MEDS ORDERED: FentaNYL (PF) 1,000 MCG in 0.9 % Sodium Chloride 80 ML IVC SCH (17:53)
[2018-09-20] MEDS: *HR* LORazepam 2 MG/ML VIAL IVP PRN ×5 (18:02→23:03)
[2018-09-20] MEDS: Atropine 1% Opth Drops 100 DROP/5 ML BOTTLE SL PRN ×3 (18:07→21:39)
[2018-09-20 19:35] VITALS: BP 138/74
[2018-09-20] MEDS ORDERED: OXYCODONE Oral CONC 10 MG/0.5 ML ORAL.SYG SL PRN (23:54)
[2018-09-21] MEDS ORDERED: FentaNYL (PF) 2,500 MCG in EMPTY BAG 1 EACH IVC SCH (01:30)
[2018-09-21] MEDS: Atropine 1% Opth Drops 100 DROP/5 ML BOTTLE SL PRN (02:11)
--- NOTE | 2018-09-22 15:19 | Death Note ---
Discharge Sum: Summary - Date and Time Date of admission: 09/10/18 11:53 Date of : 09/21/18 Time of : 03:09 - Additional Data Confirmation of as documented by pronouncing clinician: no pulse, no respirations, no heart sounds, pupils fixed and dilated Family: contacted Attending/PCP notified?: Yes Attending physician: Joey Tinajero, Was code activated?: No Discharge Sum: Diag - PCOD Probable Cause of : Cardiac arrest Discharge Sum: Prov - Provider Primary care physician: Sayda Villagran MD Consults: 09/09/18 14:22 Consult to Nurse Navigator [CONS] Routine Comment: pn 09/11/18 03:23 Consult to Critical Care [CONS] Routine Consulting Provider: [facility] Reason for Consult: ventilator management, respiratory failure Call Completed: No 09/11/18 10:30 Consult to Nutrition [CONS] Routine Comment: Consulting Provider: NUTRITION Reason for Dietary Consult: Tube Feed Start & Manage 09/12/18 16:46 Consult to Cardiology [CONS] Routine Comment: Consulting Provider: Card[facility] [place] Reason for Consult: New svt, troponin 10.3, on admission troponin was less 0.03 Call Completed: No 09/17/18 16:07 Consult to Infectious Diseases [CONS] Routine Consulting Provider: Infectious Disease [facility] Reason for Consult: Intermittent fevers and persistent leukocytosis in the setting of sepsis, pneumonia, and possible tick-borne illness; on vancomycin, zosyn, and doxycycline; requesting recommendations on antibiotic therapy and further workup Call Completed: No 09/19/18 11:31 Consult to Neurology [CONS] Stat Consulting Provider: [facility] Reason for Consult: Left MCA infarct. Has been intubated in 09/11/18. Pt's family requests evaluation Call Completed: Yes 09/20/18 23:56 Consult to Palliative Care [CONS] Routine Comment: Consulting Provider: Palliative Care [facility] Reason for Consult: transition to cc measures only Call Completed: No
--- NOTE | 2018-09-22 15:55 | Electrocardiograph Report ---
[place] [id number] Test Date: 2018-09-14 Pat Name: Talisha Grullon Department: 109 Room: 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
[2018-09-23 09:57] LABS: Coccidioides immitis Ab by ID NONE DETECTED (None Detected)
== END 2018-09-21 03:09 | disposition expired | DRG 207 ==
LOC: EMEROOARM 16:55 → 2ANU 16:55 → SUATTDRO 21:17 → 2ANU 21:45 → ICNU 09-11 03:25 → 2ANU 09-20 17:46
PROVIDERS: ADMIT Pediatrics; ATTEND Internal Medicine